=== PATIENT | female | born 1955 | race Caucasian/White ===

== ENCOUNTER 2017-01-20 16:31 | Inpatient (IN) | payer OTHER, MEDICARE ==
--- NOTE | 2017-01-20 16:45 | PDOC ---
History of Present Illness - General Chief Complaint: Wound Infection Stated Complaint: PCP SENT/WOUND INFECTION Time Seen by Provider: 01/20/17 16:44 History Source: Patient Exam Limitations: No Limitations - History of Present Illness Initial Comments: 01/20/17 16:45 Patient is a 61 year old female with history of lymphedema, chronic venous insufficiency, HTN, Parkinson's disease, Bi Polar disorder, chronic back problems s/p laminectomy, B/L hip replacement, LAP band surgery and complicated post-surgical infections sent by PCP for inpatient management of an infection to the right lower extremity that has failed outpatient antibiotics. Patient states that she first cut herself 5 weeks ago on a metal gate/door. Initial improvement with silver sulfadiazine but later started to worsen. She experienced two more cuts that weren't healing well and was started on Keflex 5 days ago with no improvement. Denies fever, chills, SOB, chest pain, abdominal pain, nausea, vomiting, diarrhea. Last tetanus shot was many years ago. PCP: Dr. Hector Garcia Pain management: Dr. Enrique Luciano ([phone]) Past History - Past Medical History Allergies/Adverse Reactions: Allergies Allergy/AdvReac Type Severity Reaction Status Date / Time No Known Drug Allergies Allergy Verified 01/20/17 16:37 lactose AdvReac Verified 01/23/17 14:22 BEE STINGS Allergy Severe Hives Uncoded 01/20/17 16:37 Home Medications: Ambulatory Orders Bumetanide 1 mg PO BID 05/28/15 Bupropion HCl [Wellbutrin Xl -] 300 mg PO DAILY 05/28/15 Carvedilol [Coreg] 3.125 mg PO BID 05/28/15 Citalopram Hydrobromide [Celexa -] 40 mg PO HS 05/28/15 Clonazepam [Klonopin] 1 mg PO HS 05/28/15 Lamotrigine [Lamictal] 300 mg PO DAILY 05/28/15 Potassium Chloride [K-Tab] 10 meq PO BID 05/28/15 Spironolactone 25 mg PO DAILY 05/28/15 Pramipexole Di-HCl [Pramipexole Dihydrochloride] 0.75 mg PO BID 01/23/17 Amox-Tr/K Cl [Augmentin 875-125mg Tablet -] 1 tab PO BID@0800,1730 #14 tablet Lactobacillus Acidophilus [Bacid -] 1 tab PO BID #20 tab 01/29/17 Oxycodone Sr [Oxycontin] 10 mg PO TID tab.sr MDD 30mg 01/29/17 Anemia: No Asthma: No Cancer: No Cardiac Disorders: Yes (HX OF A LEAKY HEART VALVE REPORTED BY PT) CVA: No COPD: No CHF: No Dementia: No Diabetes: No GI Disorders: No Disorders: No HTN: Yes Hypercholesterolemia: No Liver Disease: No Psychiatric Problems: Yes (BIPOLAR) Seizures: No Thyroid Disease: No - Surgical History Abdominal Surgery: Yes (Lap Band 2010) Appendectomy: No Cardiac Surgery: No Cholecystectomy: No Lung Surgery: No Neurologic Surgery: No Orthopedic Surgery: Yes (RIGHT CTR) - Suicide/Smoking/Psychosocial Hx Anxiety: No Suicidal Ideation: No Smoking History: Current every day smoker Have you smoked in the past 12 months: Yes Number of Cigarettes Smoked Daily: 20 Information on smoking cessation initiated: Yes 'Breaking Loose' booklet given: 01/20/17 Hx Alcohol Use: No Drug/Substance Use Hx: No Substance Use Type: None Hx Substance Use Treatment: No Review of Systems - Review of Systems Able to Perform ROS?: Yes Comments:: Denies fever, chills, recent illness Denies sore throat, changes in vision, changes in hearing Denies cough, shortness of breath Denies chest pain, palpitations, lightheadedness, diaphoresis Denies abdominal pain, nausea, vomiting, diarrhea Denies dysuria, burning on urination Endorses B/L edema to LE, erythema and weeping wounds to RLE, diffuse (chronic) M/S pain primarily to LE joints Endorses venous stasis skin changes to B/L LE, Denies rashes, bruises Denies GOMEZ, dizziness, weakness All Other Systems Reviewed and Negative Is the patient limited Turkish proficient: No *Physical Exam - Vital Signs Last Vital Signs Temp Pulse Resp BP Pulse Ox 98.1 F 94 H 19 121/63 98 01/20/17 16:36 01/20/17 16:36 01/20/17 16:36 01/20/17 16:36 01/20/17 16:36 - Physical Exam Comments: GENERAL: AAOx3, obese, pleasant and generally well appearing, NAD HEAD: NCAT EYES: PERRLA, EOMI, sclera anicteric, conjunctiva clear ENT: hearing grossly normal, nares patent, no discharge, no congestion, MMM NECK: supple, normal ROM, no LAD, no JVD, no masses RESP: speaking in full sentences, lungs CTAB, symmetrical chest expansion, no respiratory distress HEART: RRR, normal S1-S2, no MRG, 2 sec cap refill, B/L 1-2+ LE pulses ABDOMEN: soft, NTND, no guarding, no rebound tenderness, palpation of epigastric mass (lap band). EXTREMITIES: Moving all extremities, B/L LE erythema and 3+ edema consistent with stasis dermatitis, LE exquisitely ttp, 3 white weeping wounds to RLE, surrounding area slightly more erythematous and warm to the touch consistent with cellulitis, clear serous discharge, no purulent discharge, neurovascular status intact. NEUROLOGICAL: CN II-XII grossly intact, normal speech, no focal sensorimotor deficits SKIN: other than noted is warm, dry, normal turgor, no rashes. ED Treatment Course - LABORATORY CBC & Chemistry Diagram: 01/28/17 07:30 01/28/17 07:30 Medical Decision Making - Medical Decision Making 01/20/17 16:45 61 yo female with chronic venous insufficiency and infection of the right LE not improving with Keflex. Admission requested by PCP for IV axb and wound management. Ddx includes but is not limited to cellulitis, lymphangitis, abx resistance, non -healing venous ulcers, tetanus, DVT superficial thrombophlebitis Plan: EKG CXR CBC, CMP INR Wound culture Consider xray right tib/fib IV Zosyn IV Lasix Tdap consider duplex Admission per Dr. Garcia Spoke with Dr. Enrique Luciano about restrictions on patients pain medication. He expressed no concerns about giving patient whatever medications she needs to control her pain, no restrictions, no limitations on treatment. Spoke with Dr. Garcia, PCP, who requested - Admission for IV antibiotics - Start on Zosyn - IV Lasix 40 mg - Bilateral doppler Patient care signed out to Dr. Pia Swann and the night team. Labs and imaging pending. *DC/Admit/Observation/Transfer Diagnosis at time of Disposition: Cellulitis, Edema extremities - Discharge Dispostion Disposition: VNS/HOME HEALTH CARE Condition at time of disposition: Guarded - Prescriptions
[2017-01-20] MEDS ORDERED: PIPERACILLIN/TAZOB 3.375 GM 3.375 GM in DEXTROSE 5%-WATER - 50 ML IVPB ONE (17:46)
[2017-01-20] MEDS ORDERED: FUROSEMIDE 40 MG/4 ML INJECTABLE VIAL IVPB ONE (17:46)
[2017-01-20] MEDS ORDERED: DIPHTH,PERTUSS(ACELL),TET VAC 0.5 ML VIAL IM ONE (18:10)
[2017-01-20] MEDS ORDERED: PIPERACILLIN/TAZOB 3.375 GM 50 ML IVPB ONE (18:17)
[2017-01-20] MEDS ORDERED: VANCOMYCIN 1 GRAM (PRE-DOCKED) 250 ML IVPB ONE (18:17)
[2017-01-20] MEDS ORDERED: FUROSEMIDE 40 MG/4 ML INJECTABLE VIAL ONE (18:17)
[2017-01-20 18:18] LABS: BASOPHIL 1.5 % (0-2.0); EOSINOPHIL 7.5 % (0-4.5); MCH 33.3 pg (25.7-33.7); MCHC 34.3 g/dl (32.0-36.0); MEAN CELL VOLUME 97.1 fl (80-96); MEAN PLT VOLUME 7.2 fl (7.5-11.1); NEUTROPHILS 54.3 % (42.8-82.8); PLATELET COUNT 228 K/MM3 (134-434); RDW 13.5 % (11.6-15.6); WHITE BLOOD COUNT 6.4 K/mm3 (4.0-10.0)
--- NOTE | 2017-01-20 18:19 | PDOC ---
Attending Attestation - Resident Resident Name: Iglesia Suarez - ED Attending Attestation I have performed the following: I have examined & evaluated the patient, The case was reviewed & discussed with the resident, I agree w/resident's findings & plan, Exceptions are as noted - HPI HPI: 01/20/17 18:15 61y/o F h/o lymphedema and chronic venous stasis p/w RLE cellulitis not improving on outpatient keflex. no f/c. sent by Dr. Garcia for admission. - Physicial Exam PE: 01/20/17 18:18 afebrile circumferential lower RLE cellulitis with healing antoine wounds, clear serous discharge but no purulence. nvi distally otherwise. - Medical Decision Making 01/20/17 18:18 61y/o F with RLE cellulitis not improving on keflex. no systemic complaints, localized circumferential lower leg cellulitis. labs, wound culture xray iv abx admit per Dr. Garcia Heart Score/ECG Review #1 ECG reviewed & interpreted by me at: 18:29 General ECG Interpretation: Sinus Rhythm, Normal Rate (81), Normal Intervals ( qtc 446), No acute ischemic changes
[2017-01-20 18:33] LABS: INR 0.99 (0.82-1.09); PROTHROMBIN TIME (PATIENT) 10.9 SEC (9.98-11.88)
[2017-01-20 18:47] LABS: ALK PHOS 85 U/L (45-117); ANION GAP 4 (8-16); BILIRUBIN,TOTAL 0.3 mg/dL (0.2-1.0); CO2 34 mmol/L (21-32); CREATININE 1.1 mg/dL (0.55-1.02); GLUCOSE,RANDOM 81 mg/dL (74-106); SGOT/AST 16 U/L (15-37); SGPT/ALT 21 U/L (12-78); TOT PROT 7.5 g/dl (6.4-8.2)
--- NOTE | 2017-01-20 18:47 | HP ---
Admitting History and Physical - Admission Chief Complaint: leg swelling, wound on leg History of Present Illness: 61 yo female presents to hospital with failed outpatient treatment for leg ulcer / cellulitis. Patient has chronic leg edema, started putting SIlvadene on leg wound about 2 weeks ago. Erythema and weeping edema then started, so started on Keflex (already taking Bumex and Spironolactone at home) with no improvement , so now here for IV treatment and admission to hospital. No fevers. Has chronic back pain, requiring prior surgery for her back. 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: Parkinson's Cardiovascular: Yes: Other (peripheral veous disease with chronic edema) Psych: Yes: Bipolar Musculoskeletal: Yes: Other (herniated intervertebral disks of the spine) - Past Surgical History Past Surgical History: Yes: Bariatric Surgery (gastric band), Joint Replacement (bilateral hips), Laminectomy Additional Past Surgical History: vertebroplasty - Smoking History Smoking history: Current every day smoker Have you smoked in the past 12 months: Yes Aproximately how many cigarettes per day: 20 - Alcohol/Substance Use Hx Alcohol Use: No History of Substance Use: reports: Marijuana - Social History Usual Living Arrangement: Yes: With Spouse Occupation: Disabled due to spinal stenosis Home Medications - Allergies Allergies/Adverse Reactions: Allergies Allergy/AdvReac Type Severity Reaction Status Date / Time No Known Drug Allergies Allergy Verified 01/20/17 16:37 BEE STINGS Allergy Severe Hives Uncoded 01/20/17 16:37 - Home Medications Home Medications: Ambulatory Orders Aspirin [ASA -] 81 mg PO DAILY 05/28/15 Bumetanide 1 mg PO BID 05/28/15 Bupropion HCl [Wellbutrin Xl -] 450 mg PO DAILY 05/28/15 Carvedilol [Coreg] 3.125 mg PO BID 05/28/15 Celecoxib [Celebrex -] 200 mg PO DAILY 05/28/15 Citalopram Hydrobromide [Celexa -] 40 mg PO HS 05/28/15 Clonazepam [Klonopin] 1 mg PO HS 05/28/15 Lamotrigine [Lamictal] 300 mg PO DAILY 05/28/15 Multivitamins [Tab-A-Vit -] 1 tab PO DAILY 05/28/15 Oxycodone HCl/Acetaminophen [Percocet 5/325 -] 1 tab PO Q6H PRN 05/28/15 Potassium Chloride [K-Tab] 10 meq PO BID 05/28/15 Pramipexole Di-HCl [Mirapex ER] 3.75 mg PO TID 05/28/15 Spironolactone 25 mg PO DAILY 05/28/15 Calcium Carbonate/Vitamin D3 [Calcium + Vitamin D Tablet] 1 each PO BID Family Disease History - Family Disease History Family Disease History: CA: Sister (breast), Other: Grandparent (lymphedema, depression), Father (back pain), Mother (alzheimers, back pain) Review of Systems - Review of Systems Constitutional: denies: Fever, Loss of Appetite, Malaise, Night Sweats Eyes: reports: No Symptoms HENT: denies: Difficult Swallowing, Epistaxis, Throat Pain Neck: denies: Decreased ROM, Stiffness, Tenderness Cardiovascular: denies: Chest Pain, Palpitations Respiratory: denies: Cough, SOB Gastrointestinal: denies: Abdominal Pain, Constipation, Diarrhea, Nausea, Vomiting Genitourinary: denies: Burning, Discharge, Dysuria Physical Examination Vital Signs: Vital Signs Temperature 98.1 F 01/20/17 16:36 Pulse Rate 94 H 01/20/17 16:36 Respiratory Rate 19 01/20/17 16:36 Blood Pressure 121/63 01/20/17 16:36 O2 Sat by Pulse Oximetry (%) 98 01/20/17 16:36 Constitutional: Yes: Well Nourished, No Distress, Calm Eyes: Yes: Conjunctiva Clear, EOM Intact, PERRL HENT: Yes: Atraumatic, Normocephalic Neck: Yes: Supple Cardiovascular: Yes: Regular Rate and Rhythm, S1, S2. No: Murmur Respiratory: Yes: Regular, CTA Bilaterally. No: Rales, Rhonchi, Wheezes Gastrointestinal: Yes: Normal Bowel Sounds, Soft. No: Distention, Tenderness Extremities: Yes: Erythema (, ulceration right anterior leg with clear discharge ) Edema: Yes Edema: LLE: 3+, RLE: 3+ Neurological: Yes: Alert, Babinski negative Labs: CBC, BMP 01/20/17 18:15 Problem List - Problems (1) Cellulitis Assessment/Plan: -start zosyn, ID consult Code(s): L03.90 - CELLULITIS, UNSPECIFIED (2) Wound cellulitis Assessment/Plan: -silvadene for local wound care Code(s): L03.90 - CELLULITIS, UNSPECIFIED (3) Edema extremities Assessment/Plan: start IV lasix, will hold PO diuretics Code(s): R60.0 - LOCALIZED EDEMA (4) Bipolar disorder without psychotic features Assessment/Plan: -cont lamictal, wellbutrin, klonopin Code(s): F31.9 - BIPOLAR DISORDER, UNSPECIFIED (5) Spinal stenosis Assessment/Plan: -cont pain med as needed Code(s): M48.00 - SPINAL STENOSIS, SITE UNSPECIFIED (6) Parkinson disease Assessment/Plan: -mirapex -consider PT when wound healed enough Code(s): G20 - PARKINSON'S DISEASE
[2017-01-20] MEDS ORDERED: oxyCODONE HCL 5 MG TABLET PO PRN (19:14)
[2017-01-20] MEDS ORDERED: ACETAMINOPHEN 325 MG TABLET (FP) PO PRN (19:14)
--- NOTE | 2017-01-20 19:14 | PDOC ---
*Physical Exam - Vital Signs Sent in by Dr. Garcia, h/o hip replacement, lap band, lymphedema, chronic venous insufficiency. Cut her leg weeks ago, was on Keflex without resolution of the symptoms, Dr. Garcia told her to come to the ED for admission and IV abx. Got Vanc /Zosyn. Serous fluid drainage difficult to tell if it is infectious. Dr. Garcia saw her already in the ED. Pt is admitted awaiting bed. Last Vital Signs Temp Pulse Resp BP Pulse Ox 98.1 F 94 H 19 121/63 98 01/20/17 16:36 01/20/17 16:36 01/20/17 16:36 01/20/17 16:36 01/20/17 16:36 ED Treatment Course - LABORATORY CBC & Chemistry Diagram: 01/28/17 07:30 01/28/17 07:30 - ADDITIONAL ORDERS Additional order review: Laboratory Results 01/20/17 01/20/17 18:15 18:15 INR 0.99 Sodium 140 Potassium 4.2 Chloride 102 Carbon Dioxide 34 H Anion Gap 4 L BUN 14 Creatinine 1.1 H Creat Clearance w eGFR 50.67 Random Glucose 81 Calcium 9.0 Total Bilirubin 0.3 AST 16 ALT 21 Alkaline Phosphatase 85 Total Protein 7.5 Albumin 4.0 01/20/17 18:15 RBC 4.13 MCV 97.1 H MCHC 34.3 RDW 13.5 MPV 7.2 L Neutrophils % 54.3 Lymphocytes % 27.7 Monocytes % 9.0 Eosinophils % 7.5 H Basophils % 1.5 - Medications Given in the ED: ED Medications Discontinued Medications Generic Name Dose Route Start Last Admin Trade Name Freq PRN Reason Stop Dose Admin Diphtheria/Tetanus/Acell Pertussis 0.5 ml 01/20/17 18:10 01/20/17 18:28 Adacel Adolescent/Adult - IM 01/20/17 18:11 0.5 ml .ONCE ONE Administration Furosemide 40 mg 01/20/17 17:46 01/20/17 18:28 Lasix Injection - IVPB 01/20/17 17:47 40 mg ONCE ONE Administration Piperacillin Sod/Tazobactam 50 mls @ 100 mls/hr 01/20/17 17:46 01/20/17 18:27 Sod 3.375 gm/ Dextrose IVPB 01/20/17 18:15 100 mls/hr ONCE ONE Administration Protocol Medical Decision Making - Medical Decision Making Patient already admitted in the system, awaiting bed. No significant events for the duration of my care in the ED. Patient wheeled out of the ED and goes to inpatient bed without issue. *DC/Admit/Observation/Transfer Diagnosis at time of Disposition: Edema extremities Cellulitis Qualifiers: Site of cellulitis: extremity Site of cellulitis of extremity: lower extremity Laterality: right Qualified Code(s): L03.115 - Cellulitis of right lower limb - Discharge Dispostion Condition at time of disposition: Guarded Admit: Yes - Prescriptions
[2017-01-20 21:35] VITALS: BMI 41.4
[2017-01-20] MEDS ORDERED: VANCOMYCIN 1,000 MG in DEXTROSE 5%-WATER - 250 ML IVPB SCH (22:00)
[2017-01-20] MEDS: clonazePAM 0.5 MG TABLET PO SCH (22:05)
[2017-01-20] MEDS: HEPARIN NA (PORCINE) 5,000 UNITS/ML 1ML VIAL SQ SCH (22:06)
[2017-01-20] MEDS: POTASSIUM CHLORIDE TABS 10 MEQ TABLET.ER (FP) PO SCH (22:06)
[2017-01-20] MEDS: CARVEDILOL 3.125 MG TABLET (FP) PO SCH (22:06)
[2017-01-21] MEDS ORDERED: PIPERACILLIN/TAZOBACTAM 3.375 GM VIAL IVPB ONE ×3 (00:52→17:37)
[2017-01-21] MEDS ORDERED: DEXTROSE 5%-WATER 100 ML IVPB ONE ×2 (00:53→10:03)
[2017-01-21] MEDS: PIPERACILLIN/TAZOB 3.375 GM 3.375 GM in DEXTROSE 5%-WATER 100 ML IVPB SCH ×2 (01:12→10:24)
[2017-01-21] MEDS ORDERED: PIPERACILLIN/TAZOB 3.375 GM/50 ML PRE-DOCKED IVPB SCH (02:00)
[2017-01-21 08:24] LABS: BASOPHIL 2.1 % (0-2.0); MCH 32.6 pg (25.7-33.7); MCHC 33.7 g/dl (32.0-36.0); MEAN CELL VOLUME 96.7 fl (80-96); MEAN PLT VOLUME 7.5 fl (7.5-11.1); PLATELET COUNT 194 K/MM3 (134-434); RDW 13.5 % (11.6-15.6); WHITE BLOOD COUNT 5.7 K/mm3 (4.0-10.0)
[2017-01-21 08:35] LABS: ALBUMIN 3.3 g/dl (3.4-5.0); ALK PHOS 68 U/L (45-117); ANION GAP 8 (8-16); BILIRUBIN,TOTAL 0.5 mg/dL (0.2-1.0); CALCIUM 8.6 mg/dL (8.5-10.1); CO2 30 mmol/L (21-32); CREATININE 1.1 mg/dL (0.55-1.02); GLUCOSE,RANDOM 102 mg/dL (74-106); SGOT/AST 12 U/L (15-37); SGPT/ALT 18 U/L (12-78); TOT PROT 6.3 g/dl (6.4-8.2)
[2017-01-21] MEDS ORDERED: BUPROPION HCL 150 MG, BUPROPION HCL 300 MG PO SCH (10:00)
[2017-01-21] MEDS ORDERED: PT OWN MED DRAWER 7, Y5N ONE (10:02)
[2017-01-21] MEDS: CALCIUM 500MG/VIT-D 200 UNITS COMBO TABLET (FP) PO SCH ×2 (10:14→21:45)
[2017-01-21] MEDS: CARVEDILOL 3.125 MG TABLET (FP) PO SCH ×2 (10:14→21:45)
[2017-01-21] MEDS: ASPIRIN 81 MG CHEWABLE TABLETS PO SCH (10:14)
[2017-01-21] MEDS: CITALOPRAM HYDROBROMIDE 20 MG TABLET (FP) PO SCH (10:14)
[2017-01-21] MEDS: MULTIVITAMINS (DAILY MVI) TABLET (FP) PO SCH (10:14)
[2017-01-21] MEDS: POTASSIUM CHLORIDE TABS 10 MEQ TABLET.ER (FP) PO SCH ×2 (10:14→21:45)
[2017-01-21] MEDS: FUROSEMIDE 40 MG/4 ML INJECTABLE VIAL IVPUSH SCH (10:15)
[2017-01-21] MEDS: HEPARIN NA (PORCINE) 5,000 UNITS/ML 1ML VIAL SQ SCH ×2 (10:15→21:45)
--- NOTE | 2017-01-21 10:25 | EKG ---
Test Reason : Blood Pressure : / mmHG Vent. Rate : 081 BPM Atrial Rate : 081 BPM P-R Int : 152 ms QRS Dur : 076 ms QT Int : 384 ms P-R-T Axes : 053 020 032 degrees QTc Int : 446 ms NORMAL SINUS RHYTHM NORMAL ECG NO PREVIOUS ECGS AVAILABLE Confirmed by QUINTIN CARMICHAEL, JUAN DANIEL ([id number]) on 01/21/2017 10:25:25 AM Referred By: Confirmed By:JUAN DANIEL RIBEIRO MD
[2017-01-21] MEDS: LAMOTRIGINE PO SCH (11:15)
--- NOTE | 2017-01-21 11:32 | PN ---
Progress Note (short form) - Note Progress Note: ID Consult dictated Cellulitis R LE Chronic lymphedema/ stasis dermatitis S/P B/L THR Obtain BC ESR CRP Wound c/s pending Empiric zosyn/ vancomycin Elevation
[2017-01-21] MEDS: BACITRACIN 15 GM TUBE TOPICAL OINTMENT TP SCH (12:08)
[2017-01-21] MEDS: PIPERACILLIN/TAZOB 3.375 GM 3.375 GM in DEXTROSE 5%-WATER - 50 ML IVPB SCH ×2 (12:10→17:46)
--- NOTE | 2017-01-21 12:59 | PN ---
Progress Note, Physician Chief Complaint: Ms Edmonds says she is having pain in her legs and back. The back pain is chronic. No cp, sob, n/v. - Current Medication List Current Medications: Active Medications Acetaminophen (Tylenol -) 650 mg PO Q4H PRN PRN Reason: FEVER OR PAIN Aspirin (Asa -) 81 mg PO DAILY [facility] Last Admin: 01/21/17 10:14 Dose: 81 mg Bacitracin (Bacitracin -) 1 applic TP DAILY [facility] Last Admin: 01/21/17 12:08 Dose: Not Given Bupropion HCl (Wellbutrin Xl -) 300 mg PO DAILY [facility] Last Admin: 01/21/17 12:08 Dose: 300 mg Calcium Carbonate/Cholecalciferol (Os-Alan 500+D -) 1 tab PO BID [facility] Last Admin: 01/21/17 10:14 Dose: 1 tab Carvedilol (Coreg -) 3.125 mg PO BID [facility] Last Admin: 01/21/17 10:14 Dose: 3.125 mg Citalopram Hydrobromide (Celexa -) 40 mg PO DAILY [facility] Last Admin: 01/21/17 10:14 Dose: 40 mg Clonazepam (Klonopin -) 1 mg PO HS [facility] Last Admin: 01/20/17 22:05 Dose: 1 mg Furosemide (Lasix Injection -) 40 mg IVPUSH DAILY [facility] Last Admin: 01/21/17 10:15 Dose: 40 mg Heparin Sodium (Porcine) (Heparin -) 5,000 unit SQ BID [facility] Last Admin: 01/21/17 10:15 Dose: 5,000 unit Piperacillin Sod/Tazobactam (Sod 3.375 gm/ Dextrose) 50 mls @ 100 mls/hr IVPB Q8H-IV SHON PRN Reason: Protocol Last Admin: 01/21/17 12:10 Dose: Not Given Vancomycin HCl 1,000 mg/ (Dextrose) 250 mls @ 166.667 mls/hr IVPB Q12H SHON Lamotrigine 100 mg/ (Lamotrigine 200 mg) 300 mg PO DAILY [facility] Last Admin: 01/21/17 11:15 Dose: 300 mg Multivitamins/Minerals/Vitamin C (Tab-A-Vit -) 1 tab PO DAILY [facility] Last Admin: 01/21/17 10:14 Dose: 1 tab Non-Formulary Medication (Pramipexole Di-Hcl [Mirapex Er]) 3.75 mg PO TID [facility] Oxycodone HCl (Oxycontin -) 10 mg PO TID PRN PRN Reason: PAIN Potassium Chloride (K-Dur -) 10 meq PO BID [facility] Last Admin: 01/21/17 10:14 Dose: 10 meq - Objective Vital Signs: Vital Signs Temperature 36.1 C L 01/21/17 05:22 Pulse Rate 82 01/21/17 05:22 Respiratory Rate 20 01/21/17 05:22 Blood Pressure 120/58 01/21/17 05:22 O2 Sat by Pulse Oximetry (%) 94 L 01/20/17 21:42 Constitutional: Yes: Well Nourished, No Distress, Calm Cardiovascular: Yes: Regular Rate and Rhythm. No: Gallop, Murmur, Rub Respiratory: Yes: Regular, CTA Bilaterally. No: Rales, Rhonchi, Wheezes Gastrointestinal: Yes: Normal Bowel Sounds, Soft. No: Distention, Tenderness Extremities: Yes: Erythema Edema: Yes Edema: LLE: Trace, RLE: Trace Labs: CBC, BMP 01/21/17 07:05 01/21/17 07:05 INR, PTT INR 0.99 (0.82-1.09) 01/20/17 18:15 Problem List - Problems (1) Cellulitis Assessment/Plan: -patient with bilateral cellulitis, but with wound on RLE -admitted to hospital after failed outpatient therapy -appreciate ID assistance -continue vancomycin Code(s): L03.90 - CELLULITIS, UNSPECIFIED Qualifiers: Site of cellulitis: extremity Site of cellulitis of extremity: lower extremity Laterality: right Qualified Code(s): L03.115 - Cellulitis of right lower limb (2) Lymphedema Assessment/Plan: -continue diuresis with lasix -monitor I/Os Code(s): I89.0 - LYMPHEDEMA, NOT ELSEWHERE CLASSIFIED (3) Spinal stenosis Assessment/Plan: -continue oxycontin 10mg tid -patient requests it be prn Code(s): M48.00 - SPINAL STENOSIS, SITE UNSPECIFIED (4) Bipolar disorder without psychotic features Assessment/Plan: -continue home regimen Code(s): F31.9 - BIPOLAR DISORDER, UNSPECIFIED
[2017-01-21] MEDS: VANCOMYCIN 1,000 MG in DEXTROSE 5%-WATER - 250 ML IVPB SCH (13:09)
[2017-01-21] MEDS ORDERED: oxyCODONE HCL 10 MG SUSTAINED ACTING TABLET PO SCH (14:00)
[2017-01-21] MEDS ORDERED: DEXTROSE 5%-WATER - 50 ML IVPB ONE (17:37)
--- NOTE | 2017-01-21 20:09 | CONS ---
DATE OF CONSULTATION: 01/20/2017 The patient is a 61-year-old female with a history of chronic lower extremity lymphedema, chronic venous stasis dermatitis, lower extremities bilaterally, evaluated for cellulitis of the right lower extremity. She reports that approximately 2 weeks ago she had sustained a laceration to the pretibial area of the right lower extremity. She states that she walked into a metal object, resulting in a laceration. It subsequently became infected. She had applied topical Silvadene and later was prescribed Keflex. Despite taking Keflex, she had worsening erythema, warmth, and swelling of the right lower extremity. She was advised to present to the emergency room for admission for IV antibiotic therapy. At the present time, she is awake and alert. She complains of right lower extremity discomfort. She reports significant serous weeping from the right lower extremity. She denies any fever or chills. Of note, she is status post bilateral total hip replacements. 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 She required a revision of the right hip after a 6-week course of IV antibiotic therapy. She was unaware of any culture results from that time. She denies having a history of MRSA in the past. Past medical history positive for chronic lymphedema, lower extremities bilaterally; chronic venous stasis dermatitis, lower extremities bilaterally; bipolar disorder; osteoarthritis. PAST SURGICAL HISTORY: Status post bilateral total hip replacements, history of gastric band. No known allergies. Medications include aspirin, Wellbutrin, Coreg, Celexa, Celebrex, Klonopin, Lamictal, spironolactone. SOCIAL HISTORY: Positive for tobacco use. Lives at home with her . No recent hospitalizations. SYSTEMS REVIEW: Neurologic: No loss of consciousness, seizure activity, or focal weakness. Cardiac: Negative chest pain or palpitations. Respiratory: Negative cough or sputum production. Gastrointestinal: Negative vomiting or diarrhea. Positive history of gastric band. Genitourinary: Negative for urinary tract infection. LABORATORY DATA: White blood cell count 5.7 with 8% eosinophils, hematocrit 36.3, platelets 194, BUN 14, creatinine 1.1. Chest x-ray showed atelectasis. PHYSICAL EXAMINATION: General: She is awake and alert. She is not acutely toxic appearing. Vital Signs: Temperature 97. Blood pressure 120/58. Pulse 82, regular. Respiration 20 per minute. Eyes: Sclerae anicteric. Heart Sounds: S1, S2. Lungs: Clear. Abdomen: Soft. No tenderness elicited. No mass, rebound or rigidity. Extremities: Bilateral lower extremity edema/lymphedema. There are superficial ulcerations present on the pretibial aspect of the right lower extremity, with serous drainage. There is confluent erythema and warmth involving the right lower extremity from below the knee to above the foot. No crepitus or fluctuance. No lymphangitic streaking. IMPRESSION: 1. Cellulitis, right lower extremity. 2. Status post laceration of the right pretibial area. 3. Chronic lymphedema/stasis dermatitis. 4. History of bilateral total hip replacement complicated by infected right hip prosthesis. Will obtain blood cultures, sedimentation rate, C-reactive protein, wound culture, empiric antibiotic coverage with vancomycin and Zosyn pending cultures, elevation, local wound care. Will follow. Thank you for the kind referral. JIMI ORTEGA M.D. JEAN [id number]
[2017-01-21] MEDS: clonazePAM 0.5 MG TABLET PO SCH (21:45)
[2017-01-22] MEDS: oxyCODONE HCL 10 MG SUSTAINED ACTING TABLET PO PRN ×3 (00:01→16:54)
[2017-01-22] MEDS: ACETAMINOPHEN 325 MG TABLET (FP) PO PRN ×3 (00:02→16:54)
[2017-01-22] MEDS: VANCOMYCIN 1,000 MG in DEXTROSE 5%-WATER - 250 ML IVPB SCH ×3 (00:40→23:14)
[2017-01-22] MEDS ORDERED: PIPERACILLIN/TAZOBACTAM 3.375 GM VIAL IVPB ONE ×3 (03:03→16:05)
[2017-01-22] MEDS ORDERED: DEXTROSE 5%-WATER - 50 ML IVPB ONE ×2 (03:03→08:56)
[2017-01-22] MEDS: PIPERACILLIN/TAZOB 3.375 GM 3.375 GM in DEXTROSE 5%-WATER - 50 ML IVPB SCH ×3 (03:05→16:59)
[2017-01-22 08:50] LABS: BASOPHIL 0.8 % (0-2.0); EOSINOPHIL 8.1 % (0-4.5); MCH 32.2 pg (25.7-33.7); MEAN CELL VOLUME 97.8 fl (80-96); MEAN PLT VOLUME 7.6 fl (7.5-11.1); NEUTROPHILS 45.2 % (42.8-82.8); PLATELET COUNT 207 K/MM3 (134-434); RDW 13.6 % (11.6-15.6); WHITE BLOOD COUNT 5.5 K/mm3 (4.0-10.0)
[2017-01-22] MEDS ORDERED: PT OWN MED DRAWER 7, Y5N ONE ×3 (08:55→23:10)
[2017-01-22] MEDS: CARVEDILOL 3.125 MG TABLET (FP) PO SCH ×2 (09:03→21:07)
[2017-01-22] MEDS: LAMOTRIGINE PO SCH (09:03)
[2017-01-22] MEDS: ASPIRIN 81 MG CHEWABLE TABLETS PO SCH (09:03)
[2017-01-22] MEDS: POTASSIUM CHLORIDE TABS 10 MEQ TABLET.ER (FP) PO SCH ×2 (09:04→21:08)
[2017-01-22] MEDS: HEPARIN NA (PORCINE) 5,000 UNITS/ML 1ML VIAL SQ SCH ×2 (09:04→21:08)
[2017-01-22] MEDS: CITALOPRAM HYDROBROMIDE 20 MG TABLET (FP) PO SCH (09:04)
[2017-01-22] MEDS: CALCIUM 500MG/VIT-D 200 UNITS COMBO TABLET (FP) PO SCH ×2 (09:04→21:08)
[2017-01-22] MEDS: FUROSEMIDE 40 MG/4 ML INJECTABLE VIAL IVPUSH SCH (09:04)
[2017-01-22] MEDS: MULTIVITAMINS (DAILY MVI) TABLET (FP) PO SCH (09:04)
[2017-01-22 09:25] LABS: ANION GAP 9 (8-16); CO2 29 mmol/L (21-32); GLUCOSE,RANDOM 88 mg/dL (74-106); MAGNESIUM 2.6 mg/dL (1.8-2.4); PHOSPHOROUS 4.8 mg/dL (2.5-4.9)
[2017-01-22 09:27] LABS: C-REACTIVE PROTEIN 0.6 MG/DL (0.00-0.3)
--- NOTE | 2017-01-22 10:58 | PN ---
Progress Note, Physician History of Present Illness: No c/o leg pain Afebrile Tolerating antibiotics Doppler no DVT - Current Medication List Current Medications: Active Medications Acetaminophen (Tylenol -) 650 mg PO Q4H PRN PRN Reason: FEVER OR PAIN Last Admin: 01/22/17 09:19 Dose: 650 mg Aspirin (Asa -) 81 mg PO DAILY [facility] Last Admin: 01/22/17 09:03 Dose: 81 mg Bacitracin (Bacitracin -) 1 applic TP DAILY [facility] Last Admin: 01/21/17 12:08 Dose: Not Given Bupropion HCl (Wellbutrin Xl -) 300 mg PO DAILY [facility] Last Admin: 01/22/17 09:03 Dose: 300 mg Calcium Carbonate/Cholecalciferol (Os-Alan 500+D -) 1 tab PO BID [facility] Last Admin: 01/22/17 09:04 Dose: 1 tab Carvedilol (Coreg -) 3.125 mg PO BID [facility] Last Admin: 01/22/17 09:03 Dose: 3.125 mg Citalopram Hydrobromide (Celexa -) 40 mg PO DAILY [facility] Last Admin: 01/22/17 09:04 Dose: 40 mg Clonazepam (Klonopin -) 1 mg PO HS [facility] Last Admin: 01/21/17 21:45 Dose: 1 mg Furosemide (Lasix Injection -) 40 mg IVPUSH DAILY [facility] Last Admin: 01/22/17 09:04 Dose: 40 mg Heparin Sodium (Porcine) (Heparin -) 5,000 unit SQ BID [facility] Last Admin: 01/22/17 09:04 Dose: 5,000 unit Piperacillin Sod/Tazobactam (Sod 3.375 gm/ Dextrose) 50 mls @ 100 mls/hr IVPB Q8H-IV [facility] PRN Reason: Protocol Last Admin: 01/22/17 09:04 Dose: 100 mls/hr Vancomycin HCl 1,000 mg/ (Dextrose) 250 mls @ 166.667 mls/hr IVPB Q12H [facility] Last Admin: 01/22/17 00:40 Dose: 166.667 mls/hr Lamotrigine 100 mg/ (Lamotrigine 200 mg) 300 mg PO DAILY [facility] Last Admin: 01/22/17 09:03 Dose: 300 mg Multivitamins/Minerals/Vitamin C (Tab-A-Vit -) 1 tab PO DAILY [facility] Last Admin: 01/22/17 09:04 Dose: 1 tab Non-Formulary Medication (Pramipexole Di-Hcl [Mirapex Er]) 3.75 mg PO TID [facility] Oxycodone HCl (Oxycontin -) 10 mg PO TID PRN PRN Reason: PAIN Last Admin: 01/22/17 09:18 Dose: 10 mg Potassium Chloride (K-Dur -) 10 meq PO BID [facility] Last Admin: 01/22/17 09:04 Dose: 10 meq - Objective Vital Signs: Vital Signs Temperature 98.4 F 01/22/17 08:00 Pulse Rate 78 01/22/17 08:00 Respiratory Rate 16 01/22/17 08:00 Blood Pressure 122/73 01/22/17 08:00 O2 Sat by Pulse Oximetry (%) 98 01/22/17 09:00 Constitutional: Yes: No Distress Eyes: Yes: Conjunctiva Clear Cardiovascular: Yes: Regular Rate and Rhythm, S1, S2 Respiratory: Yes: CTA Bilaterally Gastrointestinal: Yes: Normal Bowel Sounds, Soft, Abdomen, Obese. No: Tenderness Extremities: Yes: Other (+ bilateral LE erythema and warmth) Edema: Yes Edema: LLE: 2+, RLE: 2+ Labs: CBC, BMP 01/22/17 08:00 01/22/17 08:00 INR, PTT INR 0.99 (0.82-1.09) 01/20/17 18:15 Assessment/Plan Bilateral LE cellulitis Chronic LE lymphedema S/P B/L THR Continue vanco/ zosyn Elevation
[2017-01-22] MEDS: BACITRACIN 15 GM TUBE TOPICAL OINTMENT TP SCH (11:16)
--- NOTE | 2017-01-22 12:54 | PN ---
Progress Note, Physician Chief Complaint: Ms Edmonds complains of being tired. She says she is still having pain in her legs but they look better. No cp, sob, n/v. - Current Medication List Current Medications: Active Medications Acetaminophen (Tylenol -) 650 mg PO Q4H PRN PRN Reason: FEVER OR PAIN Last Admin: 01/22/17 09:19 Dose: 650 mg Aspirin (Asa -) 81 mg PO DAILY [facility] Last Admin: 01/22/17 09:03 Dose: 81 mg Bacitracin (Bacitracin -) 1 applic TP DAILY [facility] Last Admin: 01/22/17 11:16 Dose: 1 applic Bupropion HCl (Wellbutrin Xl -) 300 mg PO DAILY [facility] 234 [facility]S [facility] Last Admin: 01/22/17 09:03 Dose: 300 mg Calcium Carbonate/Cholecalciferol (Os-Alan 500+D -) 1 tab PO BID [facility] Last Admin: 01/22/17 09:04 Dose: 1 tab Carvedilol (Coreg -) 3.125 mg PO BID [facility] 234 B[facility]S AT [facility] Last Admin: 01/22/17 09:03 Dose: 3.125 mg Citalopram Hydrobromide (Celexa -) 40 mg PO DAILY [facility] Last Admin: 01/22/17 09:04 Dose: 40 mg Clonazepam (Klonopin -) 1 mg PO HS [facility] 234 BEDS AT [facility] Last Admin: 01/21/17 21:45 Dose: 1 mg Furosemide (Lasix Injection -) 40 mg IVPUSH DAILY [facility] 234 B[facility]S [facility] Last Admin: 01/22/17 09:04 Dose: 40 mg Heparin Sodium (Porcine) (Heparin -) 5,000 unit SQ BID [facility] Last Admin: 01/22/17 09:04 Dose: 5,000 unit Piperacillin Sod/Tazobactam (Sod 3.375 gm/ Dextrose) 50 mls @ 100 mls/hr IVPB Q8H-IV [facility] PRN Reason: Protocol Last Admin: 01/22/17 09:04 Dose: 100 mls/hr Vancomycin HCl 1,000 mg/ (Dextrose) 250 mls @ 166.667 mls/hr IVPB Q12H [facility] Last Admin: 01/22/17 11:11 Dose: 166.667 mls/hr Lamotrigine 100 mg/ (Lamotrigine 200 mg) 300 mg PO DAILY [facility] 234 B[facility]S [facility] Last Admin: 01/22/17 09:03 Dose: 300 mg Multivitamins/Minerals/Vitamin C (Tab-A-Vit -) 1 tab PO DAILY [facility] 234 B[facility]S AT [facility] Last Admin: 01/22/17 09:04 Dose: 1 tab Non-Formulary Medication (Pramipexole Di-Hcl [Mirapex Er]) 3.75 mg PO TID [facility] 234 BEDS AT [facility] Oxycodone HCl (Oxycontin -) 10 mg PO TID PRN PRN Reason: PAIN Last Admin: 01/22/17 09:18 Dose: 10 mg Potassium Chloride (K-Dur -) 10 meq PO BID [facility] 234 B[facility]S [facility] Last Admin: 01/22/17 09:04 Dose: 10 meq - Objective Vital Signs: Vital Signs Temperature 36.9 C 01/22/17 08:00 Pulse Rate 78 01/22/17 08:00 Respiratory Rate 16 01/22/17 08:00 Blood Pressure 122/73 01/22/17 08:00 O2 Sat by Pulse Oximetry (%) 98 01/22/17 09:00 Constitutional: Yes: No Distress, Calm, Obese Cardiovascular: Yes: Regular Rate and Rhythm. No: Gallop, Murmur, Rub Respiratory: Yes: Regular, CTA Bilaterally. No: Rales, Rhonchi, Wheezes Gastrointestinal: Yes: Normal Bowel Sounds, Soft. No: Distention, Tenderness Extremities: Yes: Erythema, Other (RLE edema) Edema: Yes Edema: LLE: 1+, RLE: 1+ Labs: CBC, BMP 01/22/17 08:00 01/22/17 08:00 INR, PTT INR 0.99 (0.82-1.09) 01/20/17 18:15 Problem List - Problems (1) Cellulitis Code(s): L03.90 - CELLULITIS, UNSPECIFIED Qualifiers: Site of cellulitis: extremity Site of cellulitis of extremity: lower extremity Laterality: right Qualified Code(s): L03.115 - Cellulitis of right lower limb (2) Lymphedema Code(s): I89.0 - LYMPHEDEMA, NOT ELSEWHERE CLASSIFIED (3) Spinal stenosis Code(s): M48.00 - SPINAL STENOSIS, SITE UNSPECIFIED (4) Bipolar disorder without psychotic features Code(s): F31.9 - BIPOLAR DISORDER, UNSPECIFIED Assessment/Plan (1) Cellulitis Assessment/Plan: -appreciate ID assistance -continue vancomycin and zosyn Code(s): L03.90 - CELLULITIS, UNSPECIFIED Qualifiers: Site of cellulitis: extremity Site of cellulitis of extremity: lower extremity Laterality: right Qualified Code(s): L03.115 - Cellulitis of right lower limb (2) Lymphedema Assessment/Plan: -continue diuresis with lasix -monitor I/O -duplex dopplers negative Code(s): I89.0 - LYMPHEDEMA, NOT ELSEWHERE CLASSIFIED (3) Spinal stenosis Assessment/Plan: -continue oxycontin 10mg tid -continue as prn per patient request Code(s): M48.00 - SPINAL STENOSIS, SITE UNSPECIFIED (4) Bipolar disorder without psychotic features Assessment/Plan: -continue home regimen -well controlled Code(s): F31.9 - BIPOLAR DISORDER, UNSPECIFIED
[2017-01-22] MEDS: clonazePAM 0.5 MG TABLET PO SCH (21:07)
[2017-01-23] MEDS ORDERED: DEXTROSE 5%-WATER - 50 ML IVPB ONE ×3 (01:22→17:04)
[2017-01-23] MEDS ORDERED: PIPERACILLIN/TAZOBACTAM 3.375 GM VIAL IVPB ONE ×3 (01:22→17:04)
[2017-01-23] MEDS: PIPERACILLIN/TAZOB 3.375 GM 3.375 GM in DEXTROSE 5%-WATER - 50 ML IVPB SCH ×3 (01:38→17:57)
[2017-01-23] MEDS: oxyCODONE HCL 10 MG SUSTAINED ACTING TABLET PO PRN ×3 (01:44→16:54)
[2017-01-23] MEDS: ACETAMINOPHEN 325 MG TABLET (FP) PO PRN ×4 (01:46→21:54)
[2017-01-23 07:58] LABS: BASOPHIL 1.5 % (0-2.0); EOSINOPHIL 6.7 % (0-4.5); MCH 32.7 pg (25.7-33.7); MCHC 33.4 g/dl (32.0-36.0); MEAN CELL VOLUME 97.7 fl (80-96); MEAN PLT VOLUME 7.5 fl (7.5-11.1); NEUTROPHILS 51.9 % (42.8-82.8); PLATELET COUNT 217 K/MM3 (134-434); RDW 13.5 % (11.6-15.6); WHITE BLOOD COUNT 5.9 K/mm3 (4.0-10.0)
[2017-01-23 08:31] LABS: ANION GAP 6 (8-16); CALCIUM 9.3 mg/dL (8.5-10.1); CO2 32 mmol/L (21-32); GLUCOSE,RANDOM 78 mg/dL (74-106); MAGNESIUM 2.5 mg/dL (1.8-2.4)
[2017-01-23 08:32] LABS: CREATININE 1.2 mg/dL (0.55-1.02); PHOSPHOROUS 4.5 mg/dL (2.5-4.9)
[2017-01-23] MEDS ORDERED: PT OWN MED DRAWER 7, Y5N ONE ×2 (09:25→11:28)
[2017-01-23] MEDS: CITALOPRAM HYDROBROMIDE 20 MG TABLET (FP) PO SCH (09:35)
[2017-01-23] MEDS: CARVEDILOL 3.125 MG TABLET (FP) PO SCH ×2 (09:36→21:50)
[2017-01-23] MEDS: MULTIVITAMINS (DAILY MVI) TABLET (FP) PO SCH (09:36)
[2017-01-23] MEDS: POTASSIUM CHLORIDE TABS 10 MEQ TABLET.ER (FP) PO SCH ×2 (09:36→21:48)
[2017-01-23] MEDS: CALCIUM 500MG/VIT-D 200 UNITS COMBO TABLET (FP) PO SCH ×2 (09:36→21:48)
[2017-01-23] MEDS: LAMOTRIGINE PO SCH (09:36)
[2017-01-23] MEDS: ASPIRIN 81 MG CHEWABLE TABLETS PO SCH (09:36)
[2017-01-23] MEDS: HEPARIN NA (PORCINE) 5,000 UNITS/ML 1ML VIAL SQ SCH ×3 (09:36→21:50)
[2017-01-23] MEDS: FUROSEMIDE 40 MG/4 ML INJECTABLE VIAL IVPUSH SCH (09:36)
[2017-01-23] MEDS: BACITRACIN 15 GM TUBE TOPICAL OINTMENT TP SCH (09:52)
--- NOTE | 2017-01-23 12:27 | PN ---
Progress Note, Physician Chief Complaint: Ms Edmonds says she has diarrhea today. Requesting immodium. Still with pain in her leg, but sounds that it may be a baseline pain. Says it looks better. No cp , sob, n/v. - Current Medication List Current Medications: Active Medications Acetaminophen (Tylenol -) 650 mg PO Q4H PRN PRN Reason: FEVER OR PAIN Last Admin: 01/23/17 09:58 Dose: 650 mg Aspirin (Asa -) 81 mg PO DAILY [facility] Last Admin: 01/23/17 09:36 Dose: 81 mg Bacitracin (Bacitracin -) 1 applic TP DAILY [facility] Last Admin: 01/23/17 09:52 Dose: 1 applic Bupropion HCl (Wellbutrin Xl -) 300 mg PO DAILY [facility] Last Admin: 01/23/17 09:36 Dose: 300 mg Calcium Carbonate/Cholecalciferol (Os-Alan 500+D -) 1 tab PO BID [facility] Last Admin: 01/23/17 09:36 Dose: 1 tab Carvedilol (Coreg -) 3.125 mg PO BID [facility] Last Admin: 01/23/17 09:36 Dose: 3.125 mg Citalopram Hydrobromide (Celexa -) 40 mg PO DAILY [facility] Last Admin: 01/23/17 09:35 Dose: 40 mg Clonazepam (Klonopin -) 1 mg PO HS [facility] Last Admin: 01/22/17 21:07 Dose: 1 mg Furosemide (Lasix Injection -) 40 mg IVPUSH DAILY [facility] Last Admin: 01/23/17 09:36 Dose: 40 mg Heparin Sodium (Porcine) (Heparin -) 5,000 unit SQ BID [facility] Last Admin: 01/23/17 09:36 Dose: 5,000 unit Piperacillin Sod/Tazobactam (Sod 3.375 gm/ Dextrose) 50 mls @ 100 mls/hr IVPB Q8H-IV [facility] PRN Reason: Protocol Last Admin: 01/23/17 09:35 Dose: 100 mls/hr Vancomycin HCl 1,000 mg/ (Dextrose) 250 mls @ 166.667 mls/hr IVPB Q12H [facility] Last Admin: 01/22/17 23:14 Dose: 166.667 mls/hr Lactobacillus Acidophilus (Bacid -) 1 tab PO DAILY [facility] Lamotrigine 100 mg/ (Lamotrigine 200 mg) 300 mg PO DAILY [facility] Last Admin: 01/23/17 09:36 Dose: 300 mg Multivitamins/Minerals/Vitamin C (Tab-A-Vit -) 1 tab PO DAILY [facility] Last Admin: 01/23/17 09:36 Dose: 1 tab Patient's Own Medication (Non- Formulary) ( Pramipexole 0.75 Mg) 0.75 mg PO TID [facility] Oxycodone HCl (Oxycontin -) 10 mg PO TID PRN PRN Reason: PAIN Last Admin: 01/23/17 09:59 Dose: 10 mg Potassium Chloride (K-Dur -) 10 meq PO BID [facility] Last Admin: 01/23/17 09:36 Dose: 10 meq - Objective Vital Signs: Vital Signs Temperature 36.6 C 01/23/17 07:48 Pulse Rate 82 01/23/17 07:48 Respiratory Rate 18 01/23/17 07:48 Blood Pressure 139/83 01/23/17 07:48 O2 Sat by Pulse Oximetry (%) 100 01/23/17 09:00 Constitutional: Yes: No Distress, Calm, Obese Cardiovascular: Yes: Regular Rate and Rhythm. No: Gallop, Murmur, Rub Respiratory: Yes: Regular, CTA Bilaterally. No: Rales, Rhonchi, Wheezes Gastrointestinal: Yes: Normal Bowel Sounds, Soft. No: Distention, Tenderness Extremities: Yes: Erythema, Other (RLE wrapped) Edema: Yes Edema: LLE: 2+, RLE: 2+ Labs: CBC, BMP 01/23/17 07:30 01/23/17 07:30 INR, PTT INR 0.99 (0.82-1.09) 01/20/17 18:15 Problem List - Problems (1) Cellulitis Code(s): L03.90 - CELLULITIS, UNSPECIFIED Qualifiers: Site of cellulitis: extremity Site of cellulitis of extremity: lower extremity Laterality: right Qualified Code(s): L03.115 - Cellulitis of right lower limb (2) Lymphedema Code(s): I89.0 - LYMPHEDEMA, NOT ELSEWHERE CLASSIFIED (3) Spinal stenosis Code(s): M48.00 - SPINAL STENOSIS, SITE UNSPECIFIED (4) Bipolar disorder without psychotic features Code(s): F31.9 - BIPOLAR DISORDER, UNSPECIFIED (5) Diarrhea Code(s): R19.7 - DIARRHEA, UNSPECIFIED Assessment/Plan (1) Cellulitis Assessment/Plan: -appreciate ID assistance -continue vancomycin and zosyn -improving Code(s): L03.90 - CELLULITIS, UNSPECIFIED Qualifiers: Site of cellulitis: extremity Site of cellulitis of extremity: lower extremity Laterality: right Qualified Code(s): L03.115 - Cellulitis of right lower limb (2) Lymphedema Assessment/Plan: -continue diuresis with lasix -monitor I/O -duplex dopplers negative Code(s): I89.0 - LYMPHEDEMA, NOT ELSEWHERE CLASSIFIED (3) Spinal stenosis Assessment/Plan: -continue oxycontin 10mg tid -continue as prn per patient request Code(s): M48.00 - SPINAL STENOSIS, SITE UNSPECIFIED (4) Bipolar disorder without psychotic features Assessment/Plan: -continue home regimen -well controlled Code(s): F31.9 - BIPOLAR DISORDER, UNSPECIFIED (5) Diarrhea -will check c diff since on broad spectrum antibiotics -if negative, can use low dose immodium for control -patient says also on citracal, ? if has problem with overflow diarrhea -follow up c diff toxin and antibodies
[2017-01-23] MEDS: VANCOMYCIN 1,000 MG in DEXTROSE 5%-WATER - 250 ML IVPB SCH (12:30)
[2017-01-23] MEDS: LACTOBACILLUS ACIDOPHILUS 1 EACH TAB (FP) PO SCH (12:48)
[2017-01-23] MEDS ORDERED: FLU VACCINE QUAD 60 MCG/0.5 ML (MDV 17-18) IM ONE (14:00)
[2017-01-23] MEDS: PRAMIPEXOLE 0.75 MG PO SCH ×2 (14:23→21:48)
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
[2017-01-23] MEDS: clonazePAM 0.5 MG TABLET PO SCH (21:48)
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
[2017-01-24] MEDS ORDERED: PIPERACILLIN/TAZOBACTAM 3.375 GM VIAL IVPB ONE ×3 (01:50→16:28)
[2017-01-24] MEDS ORDERED: DEXTROSE 5%-WATER - 50 ML IVPB ONE ×3 (01:51→16:29)
[2017-01-24] MEDS: PIPERACILLIN/TAZOB 3.375 GM 3.375 GM in DEXTROSE 5%-WATER - 50 ML IVPB SCH ×3 (01:56→17:16)
[2017-01-24] MEDS: ACETAMINOPHEN 325 MG TABLET (FP) PO PRN ×2 (02:53→11:02)
[2017-01-24] MEDS: oxyCODONE HCL 10 MG SUSTAINED ACTING TABLET PO PRN ×3 (02:54→21:54)
[2017-01-24] MEDS: PRAMIPEXOLE 0.75 MG PO SCH ×4 (06:30→21:57)
--- NOTE | 2017-01-24 08:02 | PN ---
Physical Exam: SUBJECTIVE: Patient seen and examined Patient is c/o having diarrhea, but she also uses citrucel from outside and has not used it in the hospital yet. OBJECTIVE: Vital Signs Temperature 97.8 F 01/24/17 05:54 Pulse Rate 82 01/24/17 05:54 Respiratory Rate 18 01/24/17 05:54 Blood Pressure 116/62 01/24/17 05:54 O2 Sat by Pulse Oximetry (%) 100 01/23/17 21:00 GENERAL: The patient is awake, alert, and fully oriented, in no acute distress. very nice female. HEAD: Normal with no signs of trauma. EYES: PERRL, extraocular movements intact, sclera anicteric, conjunctiva clear. ENT: Ears normal, oropharynx clear without exudates, moist mucous membranes. NECK: Trachea midline, full range of motion, supple. LUNGS: Breath sounds equal, clear to auscultation bilaterally, no wheezes, no crackles, no accessory muscle use. HEART: Regular rate and rhythm, S1, S2 without murmur, rub or gallop. ABDOMEN: Soft, nontender, nondistended, normoactive bowel sounds, no guarding, no rebound. EXTREMITIES: 2+ pulses, warm, well-perfused, swelling of lower extremities R>L with RLE cellulitis with open wounds on the RLE with minimal discharge NEUROLOGICAL: Cranial nerves II through XII grossly intact. Normal speech. PSYCH: Normal mood, normal affect. SKIN: Warm, dry, normal turgor, no rashes or lesions noted CBCD WBC 5.6 K/mm3 (4.0-10.0) 01/24/17 07:33 RBC 3.88 M/mm3 (3.60-5.2) 01/24/17 07:33 Hgb 12.6 GM/dL (10.7-15.3) 01/24/17 07:33 Hct 37.9 % (32.4-45.2) 01/24/17 07:33 MCV 97.7 fl (80-96) H 01/24/17 07:33 MCHC 33.2 g/dl (32.0-36.0) 01/24/17 07:33 RDW 13.6 % (11.6-15.6) 01/24/17 07:33 Plt Count 201 K/MM3 (134-434) 01/24/17 07:33 MPV 7.2 fl (7.5-11.1) L 01/24/17 07:33 CMP Sodium 140 mmol/L (136-145) 01/24/17 07:33 Potassium 4.4 mmol/L (3.5-5.1) 01/24/17 07:33 Chloride 103 mmol/L (98-107) 01/24/17 07:33 Carbon Dioxide 33 mmol/L (21-32) H 01/24/17 07:33 Anion Gap 4 (8-16) L 01/24/17 07:33 BUN 17 mg/dL (7-18) 01/24/17 07:33 Creatinine 1.1 mg/dL (0.55-1.02) H 01/24/17 07:33 Creat Clearance w eGFR 50.67 (>60) 01/21/17 07:05 Random Glucose 79 mg/dL (74-106) 01/24/17 07:33 Calcium 9.2 mg/dL (8.5-10.1) 01/24/17 07:33 Total Bilirubin 0.5 mg/dL (0.2-1.0) D 01/21/17 07:05 AST 12 U/L (15-37) L D 01/21/17 07:05 ALT 18 U/L (12-78) 01/21/17 07:05 Alkaline Phosphatase 68 U/L (45-117) 01/21/17 07:05 Total Protein 6.3 g/dl (6.4-8.2) L 01/21/17 07:05 Albumin 3.3 g/dl (3.4-5.0) L 01/21/17 07:05 Laboratory Results - last 24 hr 01/23/17 01/23/17 07:30 11:00 Sodium 139 Potassium 4.0 Chloride 101 Carbon Dioxide 32 Anion Gap 6 L BUN 16 Creatinine 1.2 H Random Glucose 78 Calcium 9.3 Phosphorus 4.5 Magnesium 2.5 H Vancomycin Pre-Dose 17.667 H* Active Medications Generic Name Dose Route Start Last Admin Trade Name Freq PRN Reason Stop Dose Admin Acetaminophen 650 mg 01/21/17 12:26 01/24/17 02:53 Tylenol - PO 650 mg Q4H PRN Administration FEVER OR PAIN Aspirin 81 mg 01/21/17 10:00 01/23/17 09:36 Asa - PO 81 mg DAILY [facility] Administration Bacitracin 1 applic 01/21/17 11:30 01/23/17 09:52 Bacitracin - TP 1 applic DAILY [facility] Administration Bupropion HCl 300 mg 01/21/17 11:45 01/23/17 09:36 Wellbutrin Xl - PO 300 mg DAILY [facility] Administration Calcium Carbonate/Cholecalciferol 1 tab 01/21/17 10:00 01/23/17 21:48 Os-Alan 500+D - PO 1 tab BID [facility] Administration Carvedilol 3.125 mg 01/20/17 22:00 01/23/17 21:50 Coreg - PO 3.125 mg BID [facility] Administration Citalopram Hydrobromide 40 mg 01/21/17 10:00 01/23/17 09:35 Celexa - PO 40 mg DAILY [facility] Administration Clonazepam 1 mg 01/20/17 22:00 01/23/17 21:48 Klonopin - PO 1 mg HS [facility] Administration Furosemide 40 mg 01/21/17 10:00 01/23/17 09:36 Lasix Injection - IVPUSH 40 mg DAILY [facility] Administration Heparin Sodium (Porcine) 5,000 unit 01/20/17 22:00 01/23/17 21:50 Heparin - SQ Not Given BID [facility] Piperacillin Sod/Tazobactam 50 mls @ 100 mls/hr 01/21/17 11:30 01/24/17 01:56 Sod 3.375 gm/ Dextrose IVPB 100 mls/hr Q8H-IV [facility] Administration Protocol Vancomycin HCl 250 mls @ 200 mls/hr 01/24/17 10:00 Vancomycin (Pre-Docked) IVPB Q24H [facility] Lactobacillus Acidophilus 1 tab 01/23/17 12:00 01/23/17 12:48 Bacid - PO 1 tab DAILY [facility] Administration Lamotrigine 100 mg/ 300 mg 01/21/17 10:00 01/23/17 09:36 Lamotrigine 200 mg PO 300 mg DAILY [facility] Administration Multivitamins/Minerals/Vitamin C 1 tab 01/21/17 10:00 01/23/17 09:36 Tab-A-Vit - PO 1 tab DAILY [facility] Administration Patient's Own 0.75 mg 01/23/17 14:00 01/24/17 06:30 Medication (Non- PO Not Given Formulary) ( TID [facility] Pramipexole 0.75 Mg) Oxycodone HCl 10 mg 01/21/17 12:52 01/24/17 02:54 Oxycontin - PO 10 mg TID PRN Administration PAIN Potassium Chloride 10 meq 01/20/17 22:00 01/23/17 21:48 K-Dur - PO 10 meq BID [facility] Administration Home Medications Medication Instructions Recorded Bumetanide 1 mg PO BID 05/28/15 Bupropion HCl [Wellbutrin Xl -] 300 mg PO DAILY 05/28/15 Carvedilol [Coreg] 3.125 mg PO BID 05/28/15 Citalopram Hydrobromide [Celexa -] 40 mg PO HS 05/28/15 Clonazepam [Klonopin] 1 mg PO HS 05/28/15 Lamotrigine [Lamictal] 300 mg PO DAILY 05/28/15 Potassium Chloride [K-Tab] 10 meq PO BID 05/28/15 Spironolactone 25 mg PO DAILY 05/28/15 Pramipexole Di-HCl [Pramipexole 0.75 mg PO BID 01/23/17 Dihydrochloride] Microbiology 01/20/17 17:52 Leg - Right Lower Gram Stain - Final 01/20/17 17:52 Leg - Right Lower Wound Culture - Final Pseudo Fluorescens/Putida Group D Strep Or Entero Coccus Staphylococcus Coagulase Neg 01/21/17 12:30 Blood - Peripheral Venous Blood Culture - Preliminary NO GROWTH OBTAINED AFTER 48 HOURS, INCUBATION TO CONTINUE FOR 3 DAYS. 01/21/17 12:25 Blood - Peripheral Venous Blood Culture - Preliminary NO GROWTH OBTAINED AFTER 48 HOURS, INCUBATION TO CONTINUE FOR 3 DAYS. ASSESSMENT/PLAN: Patient is a 61 yo female presents to hospital with failed outpatient treatment for leg ulcer/ cellulitis. Patient has chronic leg lympedema was started on SIlvadene on leg wound about 2 weeks ago prior to the admission. # Acute Cellulitis of RLE with open wounds with minimal discharge. On IV vancomycin and zosyn continue, Vanco.level is adjusted by ID. Apply silvadene cream to RLE with beni bandages on Both lower extremities. # Acute over chronic Lymphedema continue diuresis with lasix; duplex dopplers negative #Hx of Spinal stenosis continue oxycontin 10mg tid # Bipolar disorder without psychotic features continue home regimen, well controlled # Acute Diarrhea as per patient has a hx fecal incontinence and uses citracel once cdiff is negative the w/u then can restart her back to her regimen. Also increased the dose of Bacid # Macrocytic mild anemia, will check b12 and folic acid # Hx of Osteoporosis, Vit D level as an outpatient. DVT Px: Heparin sq tid Visit type - Emergency Visit Emergency Visit: Yes ED Registration Date: 01/20/17 Care time: The patient presented to the Emergency Department on the above date and was hospitalized for further evaluation of their emergent condition. - New Patient This patient is new to me today: Yes Date on this admission: 01/24/17 - Critical Care Critical Care patient: No
[2017-01-24 08:34] LABS: EOSINOPHIL 8.5 % (0-4.5); MCH 32.4 pg (25.7-33.7); MCHC 33.2 g/dl (32.0-36.0); MEAN CELL VOLUME 97.7 fl (80-96); MEAN PLT VOLUME 7.2 fl (7.5-11.1); PLATELET COUNT 201 K/MM3 (134-434); RDW 13.6 % (11.6-15.6); WHITE BLOOD COUNT 5.6 K/mm3 (4.0-10.0)
[2017-01-24 09:02] LABS: ANION GAP 4 (8-16); CALCIUM 9.2 mg/dL (8.5-10.1); CO2 33 mmol/L (21-32); CREATININE 1.1 mg/dL (0.55-1.02); GLUCOSE,RANDOM 79 mg/dL (74-106); MAGNESIUM 2.6 mg/dL (1.8-2.4); PHOSPHOROUS 4.9 mg/dL (2.5-4.9)
[2017-01-24] MEDS ORDERED: PT OWN MED DRAWER 7, Y5N ONE ×3 (09:19→15:11)
[2017-01-24] MEDS: FUROSEMIDE 40 MG/4 ML INJECTABLE VIAL IVPUSH SCH (09:25)
[2017-01-24] MEDS: HEPARIN NA (PORCINE) 5,000 UNITS/ML 1ML VIAL SQ SCH ×3 (09:29→22:01)
[2017-01-24] MEDS: CITALOPRAM HYDROBROMIDE 20 MG TABLET (FP) PO SCH (09:29)
[2017-01-24] MEDS: CARVEDILOL 3.125 MG TABLET (FP) PO SCH ×2 (09:29→21:54)
[2017-01-24] MEDS: LACTOBACILLUS ACIDOPHILUS 1 EACH TAB (FP) PO SCH ×2 (09:30→21:54)
[2017-01-24] MEDS: POTASSIUM CHLORIDE TABS 10 MEQ TABLET.ER (FP) PO SCH ×2 (09:30→21:54)
[2017-01-24] MEDS: MULTIVITAMINS (DAILY MVI) TABLET (FP) PO SCH (09:30)
[2017-01-24] MEDS: ASPIRIN 81 MG CHEWABLE TABLETS PO SCH (09:30)
[2017-01-24] MEDS: CALCIUM 500MG/VIT-D 200 UNITS COMBO TABLET (FP) PO SCH ×2 (09:30→21:55)
[2017-01-24] MEDS: LAMOTRIGINE PO SCH (09:30)
[2017-01-24] MEDS: BACITRACIN 15 GM TUBE TOPICAL OINTMENT TP SCH (09:32)
--- NOTE | 2017-01-24 10:09 | PN ---
Progress Note (short form) - Note Progress Note: continues to have diarrhea- has a history of fecal incontinence- usually takes citrucel but has been off it since admission Vital Signs Period Temp Pulse Resp BP Sys/Moraes Pulse Ox Last 24 Hr 97.6 F-98.1 F 78-86 18-18 110-137/55-68 100 cor-rrr lungs clear abd soft, nt ext still with erythema and edema RLE, small open lesion with serous drainage CBC, BMP 01/24/17 07:33 01/24/17 07:33 Microbiology 01/20/17 17:52 Leg - Right Lower Gram Stain - Final 01/20/17 17:52 Leg - Right Lower Wound Culture - Final Pseudo Fluorescens/Putida Group D Strep Or Entero Coccus Staphylococcus Coagulase Neg 01/21/17 12:30 Blood - Peripheral Venous Blood Culture - Preliminary NO GROWTH OBTAINED AFTER 48 HOURS, INCUBATION TO CONTINUE FOR 3 DAYS. 01/21/17 12:25 Blood - Peripheral Venous Blood Culture - Preliminary NO GROWTH OBTAINED AFTER 48 HOURS, INCUBATION TO CONTINUE FOR 3 DAYS. a/p cellulitis of the RLE continue vancomycin and zosyn f/u stool cdiff (pending)
[2017-01-24] MEDS ORDERED: SILVER SULFADIAZINE 1% TOP CREAM 50 GM JAR TP SCH (10:30)
[2017-01-24] MEDS: VANCOMYCIN 1 GRAM (PRE-DOCKED) 250 ML IVPB SCH (11:06)
[2017-01-24] MEDS: SILVER SULFADIAZINE 1% TOP CREAM 50 GM JAR TP SCH ×2 (12:41→22:00)
[2017-01-24] MEDS: LOPERAMIDE HCL 2 MG CAPSULE PO ONE (15:27)
[2017-01-24] MEDS: CITRUCEL PO SCH (17:14)
[2017-01-24] MEDS: clonazePAM 0.5 MG TABLET PO SCH (21:55)
[2017-01-24] MEDS: ZINC OXIDE 20% TOPICAL OINTMENT 30 GM TUBE TP SCH (22:00)
[2017-01-25] MEDS ORDERED: PIPERACILLIN/TAZOBACTAM 3.375 GM VIAL IVPB ONE ×3 (01:08→15:54)
[2017-01-25] MEDS ORDERED: DEXTROSE 5%-WATER - 50 ML IVPB ONE ×3 (01:09→15:54)
[2017-01-25] MEDS: PIPERACILLIN/TAZOB 3.375 GM 3.375 GM in DEXTROSE 5%-WATER - 50 ML IVPB SCH ×3 (01:30→17:43)
[2017-01-25] MEDS: PRAMIPEXOLE 0.75 MG PO SCH ×3 (06:02→22:11)
[2017-01-25] MEDS: oxyCODONE HCL 10 MG SUSTAINED ACTING TABLET PO PRN (06:02)
[2017-01-25] MEDS: HEPARIN NA (PORCINE) 5,000 UNITS/ML 1ML VIAL SQ SCH ×3 (06:03→22:11)
[2017-01-25] MEDS ORDERED: PT OWN MED DRAWER 7, Y5N ONE (09:45)
[2017-01-25] MEDS: FUROSEMIDE 40 MG/4 ML INJECTABLE VIAL IVPUSH SCH (09:52)
[2017-01-25] MEDS: CALCIUM 500MG/VIT-D 200 UNITS COMBO TABLET (FP) PO SCH ×2 (09:54→22:10)
[2017-01-25] MEDS: MULTIVITAMINS (DAILY MVI) TABLET (FP) PO SCH (09:54)
[2017-01-25] MEDS: POTASSIUM CHLORIDE TABS 10 MEQ TABLET.ER (FP) PO SCH ×2 (09:55→22:09)
[2017-01-25] MEDS: ASPIRIN 81 MG CHEWABLE TABLETS PO SCH (09:55)
[2017-01-25] MEDS: CITALOPRAM HYDROBROMIDE 20 MG TABLET (FP) PO SCH (09:55)
[2017-01-25] MEDS: LACTOBACILLUS ACIDOPHILUS 1 EACH TAB (FP) PO SCH ×2 (09:55→22:09)
[2017-01-25] MEDS: LAMOTRIGINE PO SCH (09:55)
[2017-01-25] MEDS: CARVEDILOL 3.125 MG TABLET (FP) PO SCH ×2 (09:55→22:11)
[2017-01-25] MEDS: BACITRACIN 15 GM TUBE TOPICAL OINTMENT TP SCH (09:56)
[2017-01-25] MEDS: ZINC OXIDE 20% TOPICAL OINTMENT 30 GM TUBE TP SCH ×2 (10:00→22:38)
[2017-01-25] MEDS: SILVER SULFADIAZINE 1% TOP CREAM 50 GM JAR TP SCH ×2 (10:02→22:41)
[2017-01-25] MEDS: CITRUCEL PO SCH (10:02)
[2017-01-25] MEDS ORDERED: LOPERAMIDE HCL 2 MG CAPSULE PO ONE (12:08)
--- NOTE | 2017-01-25 13:02 | PN ---
Progress Note (short form) - Note Progress Note: continues to have diarrhea- has a history of fecal incontinence- usually takes citrucel but has been off it since admission Vital Signs Period Temp Pulse Resp BP Sys/Moraes Pulse Ox Last 24 Hr 97.5 F-97.7 F 82-83 18-82 110-122/60-81 100-100 cor-rrr lungs clear abd soft,nt ext bilateral edema with erythema (less), open ulcer RLE chips screen tender to touch CBC, BMP 01/24/17 07:33 01/24/17 07:33 Microbiology 01/21/17 12:30 Blood - Peripheral Venous Blood Culture - Preliminary NO GROWTH OBTAINED AFTER 96 HOURS, INCUBATION TO CONTINUE FOR 1 DAYS. 01/21/17 12:25 Blood - Peripheral Venous Blood Culture - Preliminary NO GROWTH OBTAINED AFTER 96 HOURS, INCUBATION TO CONTINUE FOR 1 DAYS. 01/23/17 22:05 Stool Clostridium difficile Antigen (LALITO) - Final 01/23/17 22:05 Stool Clostridium difficile Toxin Assay - Final 01/20/17 17:52 Leg - Right Lower Gram Stain - Final 01/20/17 17:52 Leg - Right Lower Wound Culture - Preliminary Pseudo Fluorescens/Putida Enterococcus Faecalis Staphylococcus Coagulase Neg cdiff negative a/p cellulitis of the RLE continue vancomycin and zosyn
[2017-01-25] MEDS: VANCOMYCIN 1 GRAM (PRE-DOCKED) 250 ML IVPB SCH (15:25)
--- NOTE | 2017-01-25 16:00 | PN ---
Progress Note (short form) - Note Progress Note: Patient is feeling better, but continues to have diarrhea ;ess than yesterday . Vital Signs Temperature 98.1 F 01/25/17 14:09 Pulse Rate 84 01/25/17 14:09 Respiratory Rate 18 01/25/17 14:09 Blood Pressure 118/65 01/25/17 14:09 O2 Sat by Pulse Oximetry (%) 100 01/25/17 08:53 GENERAL: The patient is awake, alert, and fully oriented, in no acute distress. very nice female. HEAD: Normal with no signs of trauma. EYES: PERRL, extraocular movements intact, sclera anicteric, conjunctiva clear. ENT: Ears normal, oropharynx clear without exudates, moist mucous membranes. NECK: Trachea midline, full range of motion, supple. LUNGS: Breath sounds equal, clear to auscultation bilaterally, no wheezes, no crackles, no accessory muscle use. HEART: Regular rate and rhythm, S1, S2 positive, JOHN 2/6 ABDOMEN: Soft, nontender, nondistended, normoactive bowel sounds, no guarding, no rebound. EXTREMITIES: 2+ pulses, warm, well-perfused, swelling of lower extremities R>L with RLE cellulitis with open wounds on the RLE with minimal discharge NEUROLOGICAL: Cranial nerves II through XII grossly intact. Normal speech. PSYCH: Normal mood, normal affect. SKIN: Warm, dry, normal turgor, no rashes or lesions noted CBCD WBC 5.6 K/mm3 (4.0-10.0) 01/24/17 07:33 RBC 3.88 M/mm3 (3.60-5.2) 01/24/17 07:33 Hgb 12.6 GM/dL (10.7-15.3) 01/24/17 07:33 Hct 37.9 % (32.4-45.2) 01/24/17 07:33 MCV 97.7 fl (80-96) H 01/24/17 07:33 MCHC 33.2 g/dl (32.0-36.0) 01/24/17 07:33 RDW 13.6 % (11.6-15.6) 01/24/17 07:33 Plt Count 201 K/MM3 (134-434) 01/24/17 07:33 MPV 7.2 fl (7.5-11.1) L 01/24/17 07:33 CMP Sodium 140 mmol/L (136-145) 01/24/17 07:33 Potassium 4.4 mmol/L (3.5-5.1) 01/24/17 07:33 Chloride 103 mmol/L (98-107) 01/24/17 07:33 Carbon Dioxide 33 mmol/L (21-32) H 01/24/17 07:33 Anion Gap 4 (8-16) L 01/24/17 07:33 BUN 17 mg/dL (7-18) 01/24/17 07:33 Creatinine 1.1 mg/dL (0.55-1.02) H 01/24/17 07:33 Creat Clearance w eGFR 50.67 (>60) 01/21/17 07:05 Random Glucose 79 mg/dL (74-106) 01/24/17 07:33 Calcium 9.2 mg/dL (8.5-10.1) 01/24/17 07:33 Total Bilirubin 0.5 mg/dL (0.2-1.0) D 01/21/17 07:05 AST 12 U/L (15-37) L D 01/21/17 07:05 ALT 18 U/L (12-78) 01/21/17 07:05 Alkaline Phosphatase 68 U/L (45-117) 01/21/17 07:05 Total Protein 6.3 g/dl (6.4-8.2) L 01/21/17 07:05 Albumin 3.3 g/dl (3.4-5.0) L 01/21/17 07:05 Current Medications Generic Name Dose Route Start Last Admin Trade Name Geovani PRN Reason Stop Dose Admin Acetaminophen 650 mg 01/21/17 12:26 01/24/17 11:02 Tylenol - PO 650 mg Q4H PRN Administration FEVER OR PAIN Aspirin 81 mg 01/21/17 10:00 01/25/17 09:55 Asa - PO 81 mg DAILY [facility] Administration Bacitracin 1 applic 01/21/17 11:30 01/25/17 09:56 Bacitracin - TP Not Given DAILY [facility] Bupropion HCl 300 mg 01/21/17 11:45 01/25/17 09:55 Wellbutrin Xl - PO 300 mg DAILY [facility] Administration Calcium Carbonate/Cholecalciferol 1 tab 01/21/17 10:00 01/25/17 09:54 Os-Alan 500+D - PO 1 tab BID [facility] Administration Carvedilol 3.125 mg 01/20/17 22:00 01/25/17 09:55 Coreg - PO 3.125 mg BID [facility] Administration Citalopram Hydrobromide 40 mg 01/21/17 10:00 01/25/17 09:55 Celexa - PO 40 mg DAILY [facility] Administration Clonazepam 1 mg 01/20/17 22:00 01/24/17 21:55 Klonopin - PO 1 mg HS [facility] Administration Furosemide 40 mg 01/21/17 10:00 01/25/17 09:52 Lasix Injection - IVPUSH 40 mg DAILY [facility] Administration Heparin Sodium (Porcine) 5,000 unit 01/24/17 14:00 01/25/17 13:58 Heparin - SQ 5,000 unit TID [facility] Administration Piperacillin Sod/Tazobactam 50 mls @ 100 mls/hr 01/21/17 11:30 01/25/17 09:57 Sod 3.375 gm/ Dextrose IVPB 100 mls/hr Q8H-IV [facility] Administration Protocol Vancomycin HCl 250 mls @ 200 mls/hr 01/24/17 10:00 01/25/17 15:25 Vancomycin (Pre-Docked) IVPB 200 mls/hr Q24H [facility] Administration Lactobacillus Acidophilus 1 tab 01/24/17 22:00 01/25/17 09:55 Bacid - PO 1 tab BID [facility] Administration Lamotrigine 100 mg/ 300 mg 01/21/17 10:00 01/25/17 09:55 Lamotrigine 200 mg PO 300 mg DAILY [facility] Administration Multi-Ingredient Ointment 1 applic 01/24/17 22:00 01/25/17 10:00 Zinc Oxide TP 1 applic BID [facility] Administration Multivitamins/Minerals/Vitamin C 1 tab 01/21/17 10:00 01/25/17 09:54 Tab-A-Vit - PO 1 tab DAILY [facility] Administration Patient's Own 0.75 mg 01/23/17 14:00 01/25/17 13:52 Medication (Non- PO Not Given Formulary) ( TID [facility] Pramipexole 0.75 Mg) Citrucel Caplets - 3 each 01/24/17 16:30 01/24/17 17:14 Patient Own Med PO 3 each Q2D@10 [facility] Administration Citrucel Caplets - 1 each 01/25/17 10:00 01/25/17 10:02 Patient Own Med PO Not Given Q2D@10 [facility] Potassium Chloride 10 meq 01/20/17 22:00 01/25/17 09:55 K-Dur - PO 10 meq BID [facility] Administration Silver Sulfadiazine 1 applic 01/24/17 10:30 01/25/17 10:02 Silvadene - TP 1 applic BID [facility] Administration Home Medications Medication Instructions Recorded Bumetanide 1 mg PO BID 05/28/15 Bupropion HCl [Wellbutrin Xl -] 300 mg PO DAILY 05/28/15 Carvedilol [Coreg] 3.125 mg PO BID 05/28/15 Citalopram Hydrobromide [Celexa -] 40 mg PO HS 05/28/15 Clonazepam [Klonopin] 1 mg PO HS 05/28/15 Lamotrigine [Lamictal] 300 mg PO DAILY 05/28/15 Potassium Chloride [K-Tab] 10 meq PO BID 05/28/15 Spironolactone 25 mg PO DAILY 05/28/15 Pramipexole Di-HCl [Pramipexole 0.75 mg PO BID 01/23/17 Dihydrochloride] 01/20/17 17:52 Leg - Right Lower Gram Stain - Final 01/20/17 17:52 Leg - Right Lower Wound Culture - Final Pseudo Fluorescens/Put[place] Group D Strep Or Entero Coccus Staphylococcus Coagulase Neg 01/21/17 12:30 Blood - Peripheral Venous Blood Culture - Preliminary NO GROWTH OBTAINED AFTER 48 HOURS, INCUBATION TO CONTINUE FOR 3 DAYS. 01/21/17 12:25 Blood - Peripheral Venous Blood Culture - Preliminary NO GROWTH OBTAINED AFTER 48 HOURS, INCUBATION TO CONTINUE FOR 3 DAYS. ASSESSMENT/PLAN: Patient is a 61 yo female presents to hospital with failed outpatient treatment for leg ulcer/ cellulitis. Patient has chronic leg lympedema was started on SIlvadene on leg wound about 2 weeks ago prior to the admission. # Acute Cellulitis of RLE with open wounds with minimal discharge. On IV vancomycin and zosyn continue, Vanco.level is adjusted by ID. Apply silvadene cream to RLE with beni bandages on Both lower extremities continue , improving the swelling/ # Acute diarrhea improving, Cdiff is neg. asking for Imodium prn patient has a hx fecal incontinence and uses citracel once cdiff is negative the w/u then can restart her back to her regimen. Also increased the dose of Bacid # Acute over chronic Lymphedema continue diuresis with lasix; duplex dopplers negative #Hx of Spinal stenosis continue oxycontin 10mg tid # Bipolar disorder without psychotic features continue home regimen, well controlled # Macrocytic mild anemia, will check [id number] . follow folic acid # Hx of Osteoporosis, Vit D level as an outpatient. DVT Px: Heparin sq tid Visit type - Emergency Visit Emergency Visit: Yes ED Registration Date: 01/20/17 Care time: The patient presented to the Emergency Department on the above date and was hospitalized for further evaluation of their emergent condition. - New Patient This patient is new to me today: No - Critical Care Critical Care patient: No
[2017-01-25] MEDS ORDERED: LOPERAMIDE HCL 2 MG CAPSULE PO PRN (17:24)
[2017-01-25] MEDS ORDERED: oxyCODONE HCL 5 MG TABLET PO PRN (17:29)
[2017-01-25] MEDS: clonazePAM 0.5 MG TABLET PO SCH (22:09)
[2017-01-25] MEDS: oxyCODONE HCL 10 MG SUSTAINED ACTING TABLET PO SCH (22:10)
[2017-01-26] MEDS ORDERED: PIPERACILLIN/TAZOBACTAM 3.375 GM VIAL IVPB ONE ×3 (00:27→18:01)
[2017-01-26] MEDS ORDERED: DEXTROSE 5%-WATER - 50 ML IVPB ONE ×3 (00:27→18:01)
[2017-01-26] MEDS: PIPERACILLIN/TAZOB 3.375 GM 3.375 GM in DEXTROSE 5%-WATER - 50 ML IVPB SCH ×3 (02:28→18:10)
[2017-01-26] MEDS: LOPERAMIDE HCL 2 MG CAPSULE PO ONE (04:13)
[2017-01-26] MEDS: PRAMIPEXOLE 0.75 MG PO SCH ×3 (05:49→21:38)
[2017-01-26] MEDS: HEPARIN NA (PORCINE) 5,000 UNITS/ML 1ML VIAL SQ SCH ×3 (05:49→21:41)
[2017-01-26] MEDS: BACITRACIN 15 GM TUBE TOPICAL OINTMENT TP SCH (10:21)
[2017-01-26] MEDS ORDERED: PT OWN MED DRAWER 7, Y5N ONE ×2 (10:43→17:52)
[2017-01-26] MEDS: CARVEDILOL 3.125 MG TABLET (FP) PO SCH ×2 (11:01→21:37)
[2017-01-26] MEDS: LAMOTRIGINE PO SCH (11:01)
[2017-01-26] MEDS: LACTOBACILLUS ACIDOPHILUS 1 EACH TAB (FP) PO SCH ×2 (11:01→21:37)
[2017-01-26] MEDS: MULTIVITAMINS (DAILY MVI) TABLET (FP) PO SCH (11:01)
[2017-01-26] MEDS: POTASSIUM CHLORIDE TABS 10 MEQ TABLET.ER (FP) PO SCH ×2 (11:01→21:37)
[2017-01-26] MEDS: CALCIUM 500MG/VIT-D 200 UNITS COMBO TABLET (FP) PO SCH ×2 (11:01→21:37)
[2017-01-26] MEDS: oxyCODONE HCL 10 MG SUSTAINED ACTING TABLET PO SCH ×2 (11:02→21:37)
[2017-01-26] MEDS: ASPIRIN 81 MG CHEWABLE TABLETS PO SCH (11:02)
[2017-01-26] MEDS: FUROSEMIDE 40 MG/4 ML INJECTABLE VIAL IVPUSH SCH (11:03)
[2017-01-26] MEDS: CITALOPRAM HYDROBROMIDE 20 MG TABLET (FP) PO SCH (11:03)
[2017-01-26] MEDS: CITRUCEL PO SCH (11:05)
[2017-01-26] MEDS: ZINC OXIDE 20% TOPICAL OINTMENT 30 GM TUBE TP SCH ×2 (12:00→21:41)
[2017-01-26] MEDS: VANCOMYCIN 1 GRAM (PRE-DOCKED) 250 ML IVPB SCH (13:55)
--- NOTE | 2017-01-26 15:00 | PN ---
Progress Note, Physician History of Present Illness: Awake, alert Reports less leg discomfort No c/o fever/ chills Less diarrhea - Current Medication List Current Medications: Active Medications Acetaminophen (Tylenol -) 650 mg PO Q4H PRN PRN Reason: FEVER OR PAIN Last Admin: 01/24/17 11:02 Dose: 650 mg Aspirin (Asa -) 81 mg PO DAILY [facility] Last Admin: 01/26/17 11:02 Dose: 81 mg Bacitracin (Bacitracin -) 1 applic TP DAILY [facility] Last Admin: 01/26/17 10:21 Dose: Not Given Bupropion HCl (Wellbutrin Xl -) 300 mg PO DAILY [facility] Last Admin: 01/26/17 11:02 Dose: 300 mg Calcium Carbonate/Cholecalciferol (Os-Alan 500+D -) 1 tab PO BID [facility] Last Admin: 01/26/17 11:01 Dose: 1 tab Carvedilol (Coreg -) 3.125 mg PO BID [facility] Last Admin: 01/26/17 11:01 Dose: 3.125 mg Citalopram Hydrobromide (Celexa -) 40 mg PO DAILY [facility] Last Admin: 01/26/17 11:03 Dose: 40 mg Clonazepam (Klonopin -) 1 mg PO HS [facility] Last Admin: 01/25/17 22:09 Dose: 1 mg Furosemide (Lasix Injection -) 40 mg IVPUSH DAILY [facility] Last Admin: 01/26/17 11:03 Dose: 40 mg Heparin Sodium (Porcine) (Heparin -) 5,000 unit SQ TID [facility] Last Admin: 01/26/17 13:55 Dose: Not Given Piperacillin Sod/Tazobactam (Sod 3.375 gm/ Dextrose) 50 mls @ 100 mls/hr IVPB Q8H-IV [facility] PRN Reason: Protocol Last Admin: 01/26/17 13:23 Dose: 100 mls/hr Vancomycin HCl (Vancomycin (Pre-Docked)) 250 mls @ 200 mls/hr IVPB Q24H [facility] Last Admin: 01/26/17 13:55 Dose: 200 mls/hr Lactobacillus Acidophilus (Bacid -) 1 tab PO BID [facility] Last Admin: 01/26/17 11:01 Dose: 1 tab Lamotrigine 100 mg/ (Lamotrigine 200 mg) 300 mg PO DAILY [facility] Last Admin: 01/26/17 11:01 Dose: 300 mg Multi-Ingredient Ointment (Zinc Oxide) 1 applic TP BID [facility] Last Admin: 01/25/17 22:38 Dose: 1 applic Multivitamins/Minerals/Vitamin C (Tab-A-Vit -) 1 tab PO DAILY [facility] Last Admin: 01/26/17 11:01 Dose: 1 tab Patient's Own Medication (Non- Formulary) ( Pramipexole 0.75 Mg) 0.75 mg PO TID [facility] Last Admin: 01/26/17 13:55 Dose: 0.75 mg Citrucel Caplets - (Patient Own Med) 3 each PO Q2D@10 [facility] Last Admin: 01/26/17 11:05 Dose: 3 each Citrucel Caplets - (Patient Own Med) 1 each PO Q2D@10 [facility] Last Admin: 01/25/17 10:02 Dose: Not Given Oxycodone HCl (Oxycontin -) 10 mg PO BID [facility] Last Admin: 01/26/17 11:02 Dose: 10 mg Potassium Chloride (K-Dur -) 10 meq PO BID [facility] Last Admin: 01/26/17 11:01 Dose: 10 meq Silver Sulfadiazine (Silvadene -) 1 applic TP BID [facility] Last Admin: 01/25/17 22:41 Dose: 1 applic - Objective Vital Signs: Vital Signs Temperature 98.1 F 01/26/17 14:34 Pulse Rate 78 01/26/17 14:34 Respiratory Rate 18 01/26/17 06:00 Blood Pressure 97/66 01/26/17 14:34 O2 Sat by Pulse Oximetry (%) 100 01/25/17 20:13 Constitutional: Yes: No Distress Eyes: Yes: Conjunctiva Clear Cardiovascular: Yes: Regular Rate and Rhythm, S1, S2 Respiratory: Yes: CTA Bilaterally Gastrointestinal: Yes: Normal Bowel Sounds, Soft. No: Tenderness Extremities: Yes: Other (decreased edema and erythema LE bilaterally) Labs: CBC, BMP 01/24/17 07:33 01/24/17 07:33 INR, PTT INR 0.99 (0.82-1.09) 01/20/17 18:15 Assessment/Plan Bilateral LE cellulitis + Wound c/s SCN, Enterococcus, Pseudomonas Chronic LE lymphedema S/P B/L THR Continue vanco/ zosyn x 24h Switch to po am Elevation
--- NOTE | 2017-01-26 16:50 | PN ---
Progress Note (short form) - Note Progress Note: Patient is comfortable feels better, diarrhea improved , a lot less now, no fever or chills. Temperature 98.1 F 01/26/17 14:34 Pulse Rate 78 01/26/17 14:34 Respiratory Rate 18 01/26/17 10:00 Blood Pressure 97/66 01/26/17 14:34 O2 Sat by Pulse Oximetry (%) 100 01/25/17 20:13 GENERAL: The patient is awake, alert, and fully oriented, in no acute distress. very nice female. HEAD: Normal with no signs of trauma. EYES: PERRL, extraocular movements intact, sclera anicteric, conjunctiva clear. ENT: Ears normal, oropharynx clear without exudates, moist mucous membranes. NECK: Trachea midline, full range of motion, supple. LUNGS: Breath sounds equal, clear to auscultation bilaterally, no wheezes, no crackles, no accessory muscle use. HEART: Regular rate and rhythm, S1, S2 positive, JOHN 2/6 ABDOMEN: Soft, nontender, nondistended, normoactive bowel sounds, no guarding, no rebound. EXTREMITIES: 2+ pulses, warm, well-perfused, swelling of lower extremities R>L with RLE cellulitis with open wounds on the RLE with minimal discharge. improving NEUROLOGICAL: Cranial nerves II through XII grossly intact. Normal speech. PSYCH: Normal mood, normal affect. SKIN: Warm, dry, normal turgor, no rashes or lesions noted CBCD WBC 5.6 K/mm3 (4.0-10.0) 01/24/17 07:33 RBC 3.88 M/mm3 (3.60-5.2) 01/24/17 07:33 Hgb 12.6 GM/dL (10.7-15.3) 01/24/17 07:33 Hct 37.9 % (32.4-45.2) 01/24/17 07:33 MCV 97.7 fl (80-96) H 01/24/17 07:33 MCHC 33.2 g/dl (32.0-36.0) 01/24/17 07:33 RDW 13.6 % (11.6-15.6) 01/24/17 07:33 Plt Count 201 K/MM3 (134-434) 01/24/17 07:33 MPV 7.2 fl (7.5-11.1) L 01/24/17 07:33 CMP Sodium 140 mmol/L (136-145) 01/24/17 07:33 Potassium 4.4 mmol/L (3.5-5.1) 01/24/17 07:33 Chloride 103 mmol/L (98-107) 01/24/17 07:33 Carbon Dioxide 33 mmol/L (21-32) H 01/24/17 07:33 Anion Gap 4 (8-16) L 01/24/17 07:33 BUN 17 mg/dL (7-18) 01/24/17 07:33 Creatinine 1.1 mg/dL (0.55-1.02) H 01/24/17 07:33 Creat Clearance w eGFR 50.67 (>60) 01/21/17 07:05 Random Glucose 79 mg/dL (74-106) 01/24/17 07:33 Calcium 9.2 mg/dL (8.5-10.1) 01/24/17 07:33 Total Bilirubin 0.5 mg/dL (0.2-1.0) D 01/21/17 07:05 AST 12 U/L (15-37) L D 01/21/17 07:05 ALT 18 U/L (12-78) 01/21/17 07:05 Alkaline Phosphatase 68 U/L (45-117) 01/21/17 07:05 Total Protein 6.3 g/dl (6.4-8.2) L 01/21/17 07:05 Albumin 3.3 g/dl (3.4-5.0) L 01/21/17 07:05 Current Medications Generic Name Dose Route Start Last Admin Trade Name Freq PRN Reason Stop Dose Admin Acetaminophen 650 mg 01/21/17 12:26 01/24/17 11:02 Tylenol - PO 650 mg Q4H PRN Administration FEVER OR PAIN Aspirin 81 mg 01/21/17 10:00 01/26/17 11:02 Asa - PO 81 mg DAILY [facility] Administration Bacitracin 1 applic 01/21/17 11:30 01/26/17 10:21 Bacitracin - TP Not Given DAILY [facility] Bupropion HCl 300 mg 01/21/17 11:45 01/26/17 11:02 Wellbutrin Xl - PO 300 mg DAILY [facility] Administration Calcium Carbonate/Cholecalciferol 1 tab 01/21/17 10:00 01/26/17 11:01 Os-Alan 500+D - PO 1 tab BID [facility] Administration Carvedilol 3.125 mg 01/20/17 22:00 01/26/17 11:01 Coreg - PO 3.125 mg BID [facility] Administration Citalopram Hydrobromide 40 mg 01/21/17 10:00 01/26/17 11:03 Celexa - PO 40 mg DAILY [facility] Administration Clonazepam 1 mg 01/20/17 22:00 01/25/17 22:09 Klonopin - PO 1 mg HS [facility] Administration Furosemide 40 mg 01/21/17 10:00 01/26/17 11:03 Lasix Injection - IVPUSH 40 mg DAILY [facility] Administration Heparin Sodium (Porcine) 5,000 unit 01/24/17 14:00 01/26/17 13:55 Heparin - SQ Not Given TID [facility] Piperacillin Sod/Tazobactam 50 mls @ 100 mls/hr 01/21/17 11:30 01/26/17 13:23 Sod 3.375 gm/ Dextrose IVPB 100 mls/hr Q8H-IV [facility] Administration Protocol Vancomycin HCl 250 mls @ 200 mls/hr 01/24/17 10:00 01/26/17 13:55 Vancomycin (Pre-Docked) IVPB 200 mls/hr Q24H [facility] Administration Lactobacillus Acidophilus 1 tab 01/24/17 22:00 01/26/17 11:01 Bacid - PO 1 tab BID [facility] Administration Lamotrigine 100 mg/ 300 mg 01/21/17 10:00 01/26/17 11:01 Lamotrigine 200 mg PO 300 mg DAILY [facility] Administration Multi-Ingredient Ointment 1 applic 01/24/17 22:00 01/25/17 22:38 Zinc Oxide TP 1 applic BID [facility] Administration Multivitamins/Minerals/Vitamin C 1 tab 01/21/17 10:00 01/26/17 11:01 Tab-A-Vit - PO 1 tab DAILY [facility] Administration Patient's Own 0.75 mg 01/23/17 14:00 01/26/17 13:55 Medication (Non- PO 0.75 mg Formulary) ( TID [facility] Administration Pramipexole 0.75 Mg) Citrucel Caplets - 3 each 01/24/17 16:30 01/26/17 11:05 Patient Own Med PO 3 each Q2D@10 [facility] Administration Citrucel Caplets - 1 each 01/25/17 10:00 01/25/17 10:02 Patient Own Med PO Not Given Q2D@10 [facility] Oxycodone HCl 10 mg 01/25/17 22:00 01/26/17 11:02 Oxycontin - PO 10 mg BID [facility] Administration Potassium Chloride 10 meq 01/20/17 22:00 01/26/17 11:01 K-Dur - PO 10 meq BID [facility] Administration Silver Sulfadiazine 1 applic 01/24/17 10:30 01/25/17 22:41 Silvadene - TP 1 applic BID [facility] Administration Home Medications Medication Instructions Recorded Bumetanide 1 mg PO BID 05/28/15 Bupropion HCl [Wellbutrin Xl -] 300 mg PO DAILY 05/28/15 Carvedilol [Coreg] 3.125 mg PO BID 05/28/15 Citalopram Hydrobromide [Celexa -] 40 mg PO HS 05/28/15 Clonazepam [Klonopin] 1 mg PO HS 05/28/15 Lamotrigine [Lamictal] 300 mg PO DAILY 05/28/15 Potassium Chloride [K-Tab] 10 meq PO BID 05/28/15 Spironolactone 25 mg PO DAILY 05/28/15 Pramipexole Di-HCl [Pramipexole 0.75 mg PO BID 01/23/17 Dihydrochloride] 01/20/17 17:52 Leg - Right Lower Gram Stain - Final 01/20/17 17:52 Leg - Right Lower Wound Culture - Final Pseudo Fluorescens/Putida Group D Strep Or Entero Coccus Staphylococcus Coagulase Neg 01/21/17 12:30 Blood - Peripheral Venous Blood Culture - Preliminary NO GROWTH OBTAINED AFTER 48 HOURS, INCUBATION TO CONTINUE FOR 3 DAYS. 01/21/17 12:25 Blood - Peripheral Venous Blood Culture - Preliminary NO GROWTH OBTAINED AFTER 48 HOURS, INCUBATION TO CONTINUE FOR 3 DAYS. ASSESSMENT/PLAN: Patient is a 61 yo female presents to hospital with failed outpatient treatment for leg ulcer/ cellulitis. Patient has chronic leg lympedema was started on SIlvadene on leg wound about 2 weeks ago prior to the admission. # Acute RLE Cellulitis with open wounds with minimal discharge improving, On IV vancomycin and zosyn continue, Vanco.level is adjusted by ID. Apply silvadene cream to RLE with beni bandages on Both lower extremities. Swelling of lower extremities are improving . possible discharge home on oral meds. discussed with # Acute diarrhea improving, less diarrhea today ,Cdiff is neg. asking for Imodium prn # Acute over chronic Lymphedema continue diuresis with lasix; duplex dopplers negative #Hx of Spinal stenosis continue oxycontin 10mg tid # Bipolar disorder without psychotic features continue home regimen, well controlled # Macrocytic mild anemia, will check [id number] . follow folic acid # Hx of Osteoporosis, Vit D level as an outpatient. DVT Px: Heparin sq tid possible discharge in am with oral antibiotics Visit type - Emergency Visit Emergency Visit: Yes ED Registration Date: 01/20/17 Care time: The patient presented to the Emergency Department on the above date and was hospitalized for further evaluation of their emergent condition. - New Patient This patient is new to me today: No - Critical Care Critical Care patient: No - Discharge Referral Referred to [facility] Med [facility].C[facility] No
[2017-01-26] MEDS: SILVER SULFADIAZINE 1% TOP CREAM 50 GM JAR TP SCH ×2 (18:10→21:40)
[2017-01-26] MEDS: clonazePAM 0.5 MG TABLET PO SCH (21:37)
[2017-01-27] MEDS ORDERED: DEXTROSE 5%-WATER - 50 ML IVPB ONE (00:26)
[2017-01-27] MEDS ORDERED: PIPERACILLIN/TAZOBACTAM 3.375 GM VIAL IVPB ONE (00:26)
[2017-01-27] MEDS: PIPERACILLIN/TAZOB 3.375 GM 3.375 GM in DEXTROSE 5%-WATER - 50 ML IVPB SCH (01:05)
[2017-01-27] MEDS: PRAMIPEXOLE 0.75 MG PO SCH ×3 (05:53→23:02)
[2017-01-27] MEDS: HEPARIN NA (PORCINE) 5,000 UNITS/ML 1ML VIAL SQ SCH ×2 (05:54→14:58)
[2017-01-27] MEDS ORDERED: INSULIN (NOVOLOG) ASPART 100 UNITS/ML 10ML VIAL ONE (06:36)
[2017-01-27 08:23] LABS: BASOPHIL 1.3 % (0-2.0); EOSINOPHIL 7.7 % (0-4.5); MCH 32.6 pg (25.7-33.7); MCHC 33.3 g/dl (32.0-36.0); MEAN CELL VOLUME 97.7 fl (80-96); MEAN PLT VOLUME 7.3 fl (7.5-11.1); NEUTROPHILS 50.8 % (42.8-82.8); PLATELET COUNT 197 K/MM3 (134-434); WHITE BLOOD COUNT 5.6 K/mm3 (4.0-10.0)
[2017-01-27 08:49] LABS: ALBUMIN 3.7 g/dl (3.4-5.0); ALK PHOS 69 U/L (45-117); ANION GAP 5 (8-16); BILIRUBIN,TOTAL 0.5 mg/dL (0.2-1.0); CALCIUM 9.4 mg/dL (8.5-10.1); CO2 30 mmol/L (21-32); CREATININE 1.1 mg/dL (0.55-1.02); GLUCOSE,RANDOM 74 mg/dL (74-106); SGOT/AST 25 U/L (15-37); SGPT/ALT 30 U/L (12-78)
[2017-01-27] MEDS ORDERED: PT OWN MED DRAWER 7, Y5N ONE (10:44)
[2017-01-27] MEDS: CITALOPRAM HYDROBROMIDE 20 MG TABLET (FP) PO SCH (11:02)
[2017-01-27] MEDS: CARVEDILOL 3.125 MG TABLET (FP) PO SCH ×2 (11:02→23:00)
[2017-01-27] MEDS: BACITRACIN 15 GM TUBE TOPICAL OINTMENT TP SCH (11:02)
[2017-01-27] MEDS: LACTOBACILLUS ACIDOPHILUS 1 EACH TAB (FP) PO SCH ×2 (11:02→22:59)
[2017-01-27] MEDS: FUROSEMIDE 40 MG/4 ML INJECTABLE VIAL IVPUSH SCH (11:03)
[2017-01-27] MEDS: POTASSIUM CHLORIDE TABS 10 MEQ TABLET.ER (FP) PO SCH ×2 (11:03→23:01)
[2017-01-27] MEDS: LAMOTRIGINE PO SCH (11:03)
[2017-01-27] MEDS: CITRUCEL PO SCH (11:04)
[2017-01-27] MEDS: oxyCODONE HCL 10 MG SUSTAINED ACTING TABLET PO SCH ×3 (11:04→22:59)
[2017-01-27] MEDS: CALCIUM 500MG/VIT-D 200 UNITS COMBO TABLET (FP) PO SCH ×2 (11:04→23:00)
[2017-01-27] MEDS: VANCOMYCIN 1 GRAM (PRE-DOCKED) 250 ML IVPB SCH (11:07)
[2017-01-27] MEDS: SILVER SULFADIAZINE 1% TOP CREAM 50 GM JAR TP SCH ×2 (11:07→23:08)
[2017-01-27] MEDS: MULTIVITAMINS (DAILY MVI) TABLET (FP) PO SCH (11:07)
[2017-01-27] MEDS: ZINC OXIDE 20% TOPICAL OINTMENT 30 GM TUBE TP SCH ×2 (11:08→23:09)
[2017-01-27] MEDS: ASPIRIN 81 MG CHEWABLE TABLETS PO SCH (11:32)
--- NOTE | 2017-01-27 13:18 | PN ---
Progress Note, Physician Chief Complaint: Ms Edmonds is having significant pain secondary to her oxycontin being reduced. She says her legs are feeling much better today. No cp or sob. Severe back pain. - Current Medication List Current Medications: Active Medications Acetaminophen (Tylenol -) 650 mg PO Q4H PRN PRN Reason: FEVER OR PAIN Last Admin: 01/24/17 11:02 Dose: 650 mg Aspirin (Asa -) 81 mg PO DAILY [facility] Last Admin: 01/27/17 11:32 Dose: 81 mg Bacitracin (Bacitracin -) 1 applic TP DAILY [facility] Last Admin: 01/27/17 11:02 Dose: Not Given Bupropion HCl (Wellbutrin Xl -) 300 mg PO DAILY [facility] Last Admin: 01/27/17 11:07 Dose: 300 mg Calcium Carbonate/Cholecalciferol (Os-Alan 500+D -) 1 tab PO BID [facility] Last Admin: 01/27/17 11:04 Dose: 1 tab Carvedilol (Coreg -) 3.125 mg PO BID [facility] Last Admin: 01/27/17 11:02 Dose: 3.125 mg Citalopram Hydrobromide (Celexa -) 40 mg PO DAILY [facility] Last Admin: 01/27/17 11:02 Dose: 40 mg Clonazepam (Klonopin -) 1 mg PO HS [facility] Last Admin: 01/26/17 21:37 Dose: 1 mg Furosemide (Lasix Injection -) 40 mg IVPUSH DAILY [facility] Last Admin: 01/27/17 11:03 Dose: 40 mg Heparin Sodium (Porcine) (Heparin -) 5,000 unit SQ TID [facility] Last Admin: 01/27/17 05:54 Dose: Not Given Piperacillin Sod/Tazobactam (Sod 3.375 gm/ Dextrose) 50 mls @ 100 mls/hr IVPB Q8H-IV SHON PRN Reason: Protocol Last Admin: 01/27/17 01:05 Dose: 100 mls/hr Vancomycin HCl (Vancomycin (Pre-Docked)) 250 mls @ 200 mls/hr IVPB Q24H [facility] Last Admin: 01/27/17 11:07 Dose: 200 mls/hr Lactobacillus Acidophilus (Bacid -) 1 tab PO BID [facility] Last Admin: 01/27/17 11:02 Dose: 1 tab Lamotrigine 100 mg/ (Lamotrigine 200 mg) 300 mg PO DAILY [facility] Last Admin: 01/27/17 11:03 Dose: 300 mg Multi-Ingredient Ointment (Zinc Oxide) 1 applic TP BID [facility] Last Admin: 01/27/17 11:08 Dose: 1 applic Multivitamins/Minerals/Vitamin C (Tab-A-Vit -) 1 tab PO DAILY [facility] Last Admin: 01/27/17 11:07 Dose: 1 tab Patient's Own Medication (Non- Formulary) ( Pramipexole 0.75 Mg) 0.75 mg PO TID [facility] Last Admin: 01/27/17 05:53 Dose: 0.75 mg Citrucel Caplets - (Patient Own Med) 3 each PO Q2D@10 [facility] Last Admin: 01/26/17 11:05 Dose: 3 each Citrucel Caplets - (Patient Own Med) 1 each PO Q2D@10 [facility] Last Admin: 01/27/17 11:04 Dose: 1 each Oxycodone HCl (Oxycontin -) 10 mg PO TID [facility] Potassium Chloride (K-Dur -) 10 meq PO BID [facility] Last Admin: 01/27/17 11:03 Dose: 10 meq Silver Sulfadiazine (Silvadene -) 1 applic TP BID [facility] Last Admin: 01/27/17 11:07 Dose: 1 applic - Objective Vital Signs: Vital Signs Temperature 36.7 C 01/27/17 08:00 Pulse Rate 76 01/27/17 08:00 Respiratory Rate 20 01/27/17 08:00 Blood Pressure 122/62 01/27/17 08:00 O2 Sat by Pulse Oximetry (%) 100 01/27/17 08:00 Constitutional: Yes: No Distress, Calm Cardiovascular: Yes: Regular Rate and Rhythm. No: Gallop, Murmur, Rub Respiratory: Yes: Regular, CTA Bilaterally. No: Rales, Rhonchi, Wheezes Gastrointestinal: Yes: Normal Bowel Sounds, Soft. No: Distention, Tenderness Extremities: Yes: Erythema Edema: No Edema: LLE: 2+, RLE: 2+ Labs: CBC, BMP 01/27/17 06:00 01/27/17 06:00 INR, PTT INR 0.99 (0.82-1.09) 01/20/17 18:15 Problem List - Problems (1) Cellulitis Code(s): L03.90 - CELLULITIS, UNSPECIFIED Qualifiers: Site of cellulitis: extremity Site of cellulitis of extremity: lower extremity Laterality: right Qualified Code(s): L03.115 - Cellulitis of right lower limb (2) Lymphedema Code(s): I89.0 - LYMPHEDEMA, NOT ELSEWHERE CLASSIFIED (3) Spinal stenosis Code(s): M48.00 - SPINAL STENOSIS, SITE UNSPECIFIED (4) Bipolar disorder without psychotic features Code(s): F31.9 - BIPOLAR DISORDER, UNSPECIFIED (5) Diarrhea Code(s): R19.7 - DIARRHEA, UNSPECIFIED Assessment/Plan (1) Cellulitis Assessment/Plan: -appreciate ID assistance -case d/w Dr Cohen -change to oral antibiotics today -monitor, if remains stable can d/c tomorrow Code(s): L03.90 - CELLULITIS, UNSPECIFIED Qualifiers: Site of cellulitis: extremity Site of cellulitis of extremity: lower extremity Laterality: right Qualified Code(s): L03.115 - Cellulitis of right lower limb (2) Lymphedema Assessment/Plan: -continue diuresis with lasix -change to oral lasix on discharge Code(s): I89.0 - LYMPHEDEMA, NOT ELSEWHERE CLASSIFIED (3) Spinal stenosis Assessment/Plan: -oxycontin reduced to bid yesterday -patient chronically on tid dosing, now with severe pain -changed back to tid, plan to discharge tomorrow if pain is controlled Code(s): M48.00 - SPINAL STENOSIS, SITE UNSPECIFIED (4) Bipolar disorder without psychotic features Assessment/Plan: -continue home regimen -well controlled Code(s): F31.9 - BIPOLAR DISORDER, UNSPECIFIED (5) Diarrhea -resolved
--- NOTE | 2017-01-27 13:22 | PN ---
Progress Note, Physician History of Present Illness: Less leg pain Still with diarrhea No fever/ chills - Current Medication List Current Medications: Active Medications Acetaminophen (Tylenol -) 650 mg PO Q4H PRN PRN Reason: FEVER OR PAIN Last Admin: 01/24/17 11:02 Dose: 650 mg Amoxicillin/Clavulanate Potassium (Augmentin - 875mg Tablet) 1 tab PO BID@0800, 1730 [facility] Aspirin (Asa -) 81 mg PO DAILY [facility] Last Admin: 01/27/17 11:32 Dose: 81 mg Bacitracin (Bacitracin -) 1 applic TP DAILY [facility] Last Admin: 01/27/17 11:02 Dose: Not Given Bupropion HCl (Wellbutrin Xl -) 300 mg PO DAILY [facility] Last Admin: 01/27/17 11:07 Dose: 300 mg Calcium Carbonate/Cholecalciferol (Os-Alan 500+D -) 1 tab PO BID [facility] Last Admin: 01/27/17 11:04 Dose: 1 tab Carvedilol (Coreg -) 3.125 mg PO BID [facility] Last Admin: 01/27/17 11:02 Dose: 3.125 mg Citalopram Hydrobromide (Celexa -) 40 mg PO DAILY [facility] Last Admin: 01/27/17 11:02 Dose: 40 mg Clonazepam (Klonopin -) 1 mg PO HS [facility] Last Admin: 01/26/17 21:37 Dose: 1 mg Furosemide (Lasix Injection -) 40 mg IVPUSH DAILY [facility] Last Admin: 01/27/17 11:03 Dose: 40 mg Heparin Sodium (Porcine) (Heparin -) 5,000 unit SQ TID [facility] Last Admin: 01/27/17 05:54 Dose: Not Given Lactobacillus Acidophilus (Bacid -) 1 tab PO BID [facility] Last Admin: 01/27/17 11:02 Dose: 1 tab Lamotrigine 100 mg/ (Lamotrigine 200 mg) 300 mg PO DAILY [facility] Last Admin: 01/27/17 11:03 Dose: 300 mg Multi-Ingredient Ointment (Zinc Oxide) 1 applic TP BID [facility] Last Admin: 01/27/17 11:08 Dose: 1 applic Multivitamins/Minerals/Vitamin C (Tab-A-Vit -) 1 tab PO DAILY [facility] Last Admin: 01/27/17 11:07 Dose: 1 tab Patient's Own Medication (Non- Formulary) ( Pramipexole 0.75 Mg) 0.75 mg PO TID [facility] Last Admin: 01/27/17 05:53 Dose: 0.75 mg Citrucel Caplets - (Patient Own Med) 3 each PO Q2D@10 [facility] Last Admin: 01/26/17 11:05 Dose: 3 each Citrucel Caplets - (Patient Own Med) 1 each PO Q2D@10 [facility] Last Admin: 01/27/17 11:04 Dose: 1 each Oxycodone HCl (Oxycontin -) 10 mg PO TID [facility] Potassium Chloride (K-Dur -) 10 meq PO BID [facility] Last Admin: 01/27/17 11:03 Dose: 10 meq Silver Sulfadiazine (Silvadene -) 1 applic TP BID [facility] Last Admin: 01/27/17 11:07 Dose: 1 applic - Objective Vital Signs: Vital Signs Temperature 98.0 F 01/27/17 08:00 Pulse Rate 76 01/27/17 08:00 Respiratory Rate 20 01/27/17 08:00 Blood Pressure 122/62 01/27/17 08:00 O2 Sat by Pulse Oximetry (%) 100 01/27/17 08:00 Constitutional: Yes: No Distress Eyes: Yes: Conjunctiva Clear Cardiovascular: Yes: Regular Rate and Rhythm, S1, S2 Respiratory: Yes: CTA Bilaterally Gastrointestinal: Yes: Normal Bowel Sounds, Soft. No: Tenderness Extremities: Yes: Other (decreased erythema LE bilaterally R LE ulcer without drainage) Edema: Yes Labs: CBC, BMP 01/27/17 06:00 01/27/17 06:00 INR, PTT INR 0.99 (0.82-1.09) 01/20/17 18:15 Assessment/Plan Bilateral LE cellulitis + Wound c/s SCN, Enterococcus, Pseudomonas Chronic LE lymphedema S/P B/L THR Switch to po Augmentin 875mg bid x 7d Instructed pt to keep LE elevated at home
[2017-01-27] MEDS: AMOX TR/POT CLAV 875MG/125MG TABLETS (FP) PO SCH ×2 (14:54→18:17)
--- NOTE | 2017-01-27 16:26 | PN ---
Progress Note (short form) - Note Progress Note: Called to room secondary to patient having a mechanical fall. States she was getting up and leaned on the table which moved. Because of that she fell and hit the right side of her head (frontotemporal region) and R humeral area and R hip. Fall was mechanical and not secondary to syncope. She did not lose consciousness. She is having pain in her head and R arm and R leg. Gen: nad, bruising at right frontotemporal region without bleeding CV: rrr Pulm: ctab GI: s/nt/nd Ext: bruising at R humeral area, no bruising on hip Neuro: A&O x3, no sensory or motor deficits 1. Mechanical fall -obtain head CT -x-ray of R shoulder, humerus, hip, and pelvis -PT consult -will hold heparin -check PT/INR and PTT Problem List - Problems (1) Cellulitis Code(s): L03.90 - CELLULITIS, UNSPECIFIED Qualifiers: Site of cellulitis: extremity Site of cellulitis of extremity: lower extremity Laterality: right Qualified Code(s): L03.115 - Cellulitis of right lower limb (2) Lymphedema Code(s): I89.0 - LYMPHEDEMA, NOT ELSEWHERE CLASSIFIED (3) Spinal stenosis Code(s): M48.00 - SPINAL STENOSIS, SITE UNSPECIFIED (4) Bipolar disorder without psychotic features Code(s): F31.9 - BIPOLAR DISORDER, UNSPECIFIED (5) Diarrhea Code(s): R19.7 - DIARRHEA, UNSPECIFIED
[2017-01-27 19:57] LABS: INR 0.98 (0.82-1.09); PROTHROMBIN TIME (PATIENT) 10.8 SEC (9.98-11.88)
[2017-01-27 20:00] LABS: ACTIVATED PTT 33.7 SECONDS (26.9-34.4)
[2017-01-27] MEDS: clonazePAM 0.5 MG TABLET PO SCH (23:01)
[2017-01-28] MEDS: oxyCODONE HCL 10 MG SUSTAINED ACTING TABLET PO SCH ×3 (06:25→21:29)
[2017-01-28] MEDS: PRAMIPEXOLE 0.75 MG PO SCH ×3 (06:26→21:27)
[2017-01-28 08:31] LABS: BASOPHIL 1.5 % (0-2.0); EOSINOPHIL 6.9 % (0-4.5); MCH 32.6 pg (25.7-33.7); MCHC 33.3 g/dl (32.0-36.0); MEAN PLT VOLUME 7.2 fl (7.5-11.1); NEUTROPHILS 58.2 % (42.8-82.8); PLATELET COUNT 209 K/MM3 (134-434); RDW 13.1 % (11.6-15.6); WHITE BLOOD COUNT 5.6 K/mm3 (4.0-10.0)
[2017-01-28 09:02] LABS: ANION GAP 8 (8-16); CO2 30 mmol/L (21-32); GLUCOSE,RANDOM 91 mg/dL (74-106)
[2017-01-28 09:03] LABS: CALCIUM 9.3 mg/dL (8.5-10.1); MAGNESIUM 2.6 mg/dL (1.8-2.4)
[2017-01-28] MEDS ORDERED: PT OWN MED DRAWER 7, Y5N ONE (10:43)
[2017-01-28] MEDS: CALCIUM 500MG/VIT-D 200 UNITS COMBO TABLET (FP) PO SCH ×2 (10:46→21:28)
[2017-01-28] MEDS: AMOX TR/POT CLAV 875MG/125MG TABLETS (FP) PO SCH ×2 (10:46→17:31)
[2017-01-28] MEDS: ASPIRIN 81 MG CHEWABLE TABLETS PO SCH (10:47)
[2017-01-28] MEDS: CITALOPRAM HYDROBROMIDE 20 MG TABLET (FP) PO SCH (10:47)
[2017-01-28] MEDS: LACTOBACILLUS ACIDOPHILUS 1 EACH TAB (FP) PO SCH ×2 (10:48→21:28)
[2017-01-28] MEDS: MULTIVITAMINS (DAILY MVI) TABLET (FP) PO SCH (10:48)
[2017-01-28] MEDS: CITRUCEL PO SCH (10:49)
[2017-01-28] MEDS: lamoTRIgine 100 MG TABLET (FP) PO SCH (10:50)
[2017-01-28] MEDS: POTASSIUM CHLORIDE TABS 10 MEQ TABLET.ER (FP) PO SCH ×2 (10:51→21:30)
[2017-01-28] MEDS: CARVEDILOL 3.125 MG TABLET (FP) PO SCH ×2 (10:51→21:28)
[2017-01-28] MEDS: BACITRACIN 15 GM TUBE TOPICAL OINTMENT TP SCH (10:52)
[2017-01-28] MEDS: FUROSEMIDE 40 MG/4 ML INJECTABLE VIAL IVPUSH SCH (10:52)
[2017-01-28] MEDS: SILVER SULFADIAZINE 1% TOP CREAM 50 GM JAR TP SCH ×2 (10:52→21:37)
[2017-01-28] MEDS: ZINC OXIDE 20% TOPICAL OINTMENT 30 GM TUBE TP SCH ×2 (10:54→22:48)
--- NOTE | 2017-01-28 13:06 | PN ---
Progress Note, Physician Chief Complaint: Ms Edmonds is saying she is having back pain today, concerned secondary to her fall. No cp, sob, n/v. - Current Medication List Current Medications: Active Medications Acetaminophen (Tylenol -) 650 mg PO Q4H PRN PRN Reason: FEVER OR PAIN Last Admin: 01/24/17 11:02 Dose: 650 mg Amoxicillin/Clavulanate Potassium (Augmentin - 875mg Tablet) 1 tab PO BID@0800, 1730 [facility] Last Admin: 01/28/17 10:46 Dose: 1 tab Aspirin (Asa -) 81 mg PO DAILY [facility] Last Admin: 01/28/17 10:47 Dose: 81 mg Bacitracin (Bacitracin -) 1 applic TP DAILY [facility] Last Admin: 01/28/17 10:52 Dose: Not Given Bupropion HCl (Wellbutrin Xl -) 300 mg PO DAILY [facility] Last Admin: 01/28/17 10:48 Dose: 300 mg Calcium Carbonate/Cholecalciferol (Os-Alan 500+D -) 1 tab PO BID [facility] Last Admin: 01/28/17 10:46 Dose: 1 tab Carvedilol (Coreg -) 3.125 mg PO BID [facility] Last Admin: 01/28/17 10:51 Dose: 3.125 mg Citalopram Hydrobromide (Celexa -) 40 mg PO DAILY [facility] Last Admin: 01/28/17 10:47 Dose: 40 mg Clonazepam (Klonopin -) 1 mg PO HS [facility] Last Admin: 01/27/17 23:01 Dose: 1 mg Furosemide (Lasix Injection -) 40 mg IVPUSH DAILY [facility] Last Admin: 01/28/17 10:52 Dose: 40 mg Lactobacillus Acidophilus (Bacid -) 1 tab PO BID [facility] Last Admin: 01/28/17 10:48 Dose: 1 tab Lamotrigine (Lamictal -) 300 mg PO DAILY [facility] Last Admin: 01/28/17 10:50 Dose: 300 mg Multi-Ingredient Ointment (Zinc Oxide) 1 applic TP BID [facility] Last Admin: 01/28/17 10:54 Dose: 1 applic Multivitamins/Minerals/Vitamin C (Tab-A-Vit -) 1 tab PO DAILY [facility] Last Admin: 01/28/17 10:48 Dose: 1 tab Patient's Own Medication (Non- Formulary) ( Pramipexole 0.75 Mg) 0.75 mg PO TID [facility] Last Admin: 01/28/17 06:26 Dose: 0.75 mg Citrucel Caplets - (Patient Own Med) 3 each PO Q2D@10 [facility] Last Admin: 01/28/17 10:49 Dose: 3 each Citrucel Caplets - (Patient Own Med) 1 each PO Q2D@10 [facility] Last Admin: 01/27/17 11:04 Dose: 1 each Oxycodone HCl (Oxycontin -) 10 mg PO TID [facility] Last Admin: 01/28/17 06:25 Dose: 10 mg Potassium Chloride (K-Dur -) 10 meq PO BID [facility] Last Admin: 01/28/17 10:51 Dose: 10 meq Silver Sulfadiazine (Silvadene -) 1 applic TP BID [facility] Last Admin: 01/28/17 10:52 Dose: 1 applic - Objective Vital Signs: Vital Signs Temperature 36.7 C 01/28/17 12:04 Pulse Rate 74 01/28/17 12:04 Respiratory Rate 20 01/28/17 12:04 Blood Pressure 126/84 01/28/17 12:04 O2 Sat by Pulse Oximetry (%) 98 01/28/17 08:00 Constitutional: Yes: No Distress, Calm, Obese Cardiovascular: Yes: Regular Rate and Rhythm. No: Gallop, Murmur, Rub Respiratory: Yes: Regular, CTA Bilaterally. No: Rales, Rhonchi, Wheezes Gastrointestinal: Yes: Normal Bowel Sounds, Soft. No: Distention, Tenderness Extremities: Yes: WNL Edema: No Labs: CBC, BMP 01/28/17 07:30 01/28/17 07:30 INR, PTT INR 0.98 (0.82-1.09) 01/27/17 19:28 Problem List - Problems (1) Cellulitis Code(s): L03.90 - CELLULITIS, UNSPECIFIED Qualifiers: Site of cellulitis: extremity Site of cellulitis of extremity: lower extremity Laterality: right Qualified Code(s): L03.115 - Cellulitis of right lower limb (2) Lymphedema Code(s): I89.0 - LYMPHEDEMA, NOT ELSEWHERE CLASSIFIED (3) Spinal stenosis Code(s): M48.00 - SPINAL STENOSIS, SITE UNSPECIFIED (4) Bipolar disorder without psychotic features Code(s): F31.9 - BIPOLAR DISORDER, UNSPECIFIED (5) Diarrhea Code(s): R19.7 - DIARRHEA, UNSPECIFIED Assessment/Plan (1) Cellulitis Assessment/Plan: -on oral antibiotics -finish as an outpatient Code(s): L03.90 - CELLULITIS, UNSPECIFIED Qualifiers: Site of cellulitis: extremity Site of cellulitis of extremity: lower extremity Laterality: right Qualified Code(s): L03.115 - Cellulitis of right lower limb (2) Lymphedema Assessment/Plan: -continue diuresis with lasix -change to oral lasix on discharge today Code(s): I89.0 - LYMPHEDEMA, NOT ELSEWHERE CLASSIFIED (3) Spinal stenosis Assessment/Plan: -continue oxycontin -saying pain is worsened with fall -will obtain x-ray of spine, if WNL will d/c home with follow up Code(s): M48.00 - SPINAL STENOSIS, SITE UNSPECIFIED (4) Bipolar disorder without psychotic features Assessment/Plan: -continue home regimen -well controlled Code(s): F31.9 - BIPOLAR DISORDER, UNSPECIFIED (5) Diarrhea -resolved (6) Fall -head CT negative -x-rays of R humerus/shoulder/pelvis without fracture -patient seen by PT and walking -observed walking around room and sitting/standing without difficulty -x-ray of lumbrosacral spine as above
[2017-01-28] MEDS: FUROSEMIDE 40 MG TABLET (FP) PO SCH (15:24)
[2017-01-28] MEDS: clonazePAM 0.5 MG TABLET PO SCH (21:28)
[2017-01-29] MEDS: ACETAMINOPHEN 325 MG TABLET (FP) PO PRN ×2 (05:00→10:58)
[2017-01-29] MEDS: oxyCODONE HCL 10 MG SUSTAINED ACTING TABLET PO SCH ×2 (05:39→14:17)
[2017-01-29] MEDS: PRAMIPEXOLE 0.75 MG PO SCH ×3 (05:40→14:18)
[2017-01-29] MEDS: AMOX TR/POT CLAV 875MG/125MG TABLETS (FP) PO SCH ×2 (08:33→17:38)
[2017-01-29] MEDS: LACTOBACILLUS ACIDOPHILUS 1 EACH TAB (FP) PO SCH (10:57)
[2017-01-29] MEDS: CITALOPRAM HYDROBROMIDE 20 MG TABLET (FP) PO SCH (10:57)
[2017-01-29] MEDS: ASPIRIN 81 MG CHEWABLE TABLETS PO SCH (10:57)
[2017-01-29] MEDS: CALCIUM 500MG/VIT-D 200 UNITS COMBO TABLET (FP) PO SCH (10:57)
[2017-01-29] MEDS: POTASSIUM CHLORIDE TABS 10 MEQ TABLET.ER (FP) PO SCH (10:57)
[2017-01-29] MEDS: MULTIVITAMINS (DAILY MVI) TABLET (FP) PO SCH (10:57)
[2017-01-29] MEDS: CARVEDILOL 3.125 MG TABLET (FP) PO SCH (10:57)
[2017-01-29] MEDS: FUROSEMIDE 40 MG TABLET (FP) PO SCH (10:57)
[2017-01-29] MEDS: lamoTRIgine 100 MG TABLET (FP) PO SCH (10:58)
[2017-01-29] MEDS: ZINC OXIDE 20% TOPICAL OINTMENT 30 GM TUBE TP SCH (11:00)
[2017-01-29] MEDS: BACITRACIN 15 GM TUBE TOPICAL OINTMENT TP SCH (11:01)
[2017-01-29] MEDS ORDERED: PT OWN MED DRAWER 7, Y5N ONE (11:03)
[2017-01-29] MEDS: CITRUCEL PO SCH (11:07)
[2017-01-29] MEDS: SILVER SULFADIAZINE 1% TOP CREAM 50 GM JAR TP SCH (11:11)
--- NOTE | 2017-01-29 13:22 | DS ---
Physical Examination Vital Signs: Vital Signs Temperature 36.9 C 01/29/17 12:00 Pulse Rate 85 01/29/17 12:00 Respiratory Rate 20 01/29/17 12:00 Blood Pressure 122/74 01/29/17 12:00 O2 Sat by Pulse Oximetry (%) 98 01/28/17 21:00 Constitutional: Yes: No Distress, Calm, Obese Cardiovascular: Yes: Regular Rate and Rhythm. No: Gallop, Murmur, Rub Respiratory: Yes: Regular, CTA Bilaterally. No: Rales, Rhonchi, Wheezes Gastrointestinal: Yes: Normal Bowel Sounds, Soft. No: Distention, Tenderness Extremities: Yes: WNL Edema: No Labs: CBC, BMP 01/28/17 07:30 01/28/17 07:30 Discharge Summary Reason For Visit: CELLULITIS Current Active Problems Bipolar disorder without psychotic features (Acute) Cellulitis (Acute) Diarrhea (Acute) Edema extremities (Acute) Lymphedema (Acute) Parkinson disease (Acute) Spinal stenosis (Acute) Wound cellulitis (Acute) Hospital Course: (1) Cellulitis Code(s): L03.90 - CELLULITIS, UNSPECIFIED Qualifiers: Site of cellulitis: extremity Site of cellulitis of extremity: lower extremity Laterality: right Qualified Code(s): L03.115 - Cellulitis of right lower limb (2) Lymphedema Code(s): I89.0 - LYMPHEDEMA, NOT ELSEWHERE CLASSIFIED (3) Spinal stenosis Code(s): M48.00 - SPINAL STENOSIS, SITE UNSPECIFIED (4) Bipolar disorder without psychotic features Code(s): F31.9 - BIPOLAR DISORDER, UNSPECIFIED (5) Diarrhea (6) Fall Mrs Edmonds is a pleasant 61 year old female who came in with lymphedema complicated by cellulitis. She was admitted to the hospital and seen by ID. She was started on vancomycin and zosyn. She improved and was successfully transitioned to augmentin. She also had edema and was diuresed with IV lasix. She can be restarted on her home aldactone and bumex. Her hospital stay was complicated by a mechanical fall. She underwent head CT, R shoulder/humerus, and R hip x-rays which were normal. She began to complain of worsening back pain the next day after the fall. X-ray of the lumbrosacral spine was performed which showed compression fractures, probably chronic but cannot rule out acute. Because of this an MRI of the lumbar spine was done which showed no acute fracture. Patient is safe for discharge home with follow up. 37 minutes spent in preparation of this discharge Condition: Good - Instructions Diet, Activity, Other Instructions: resume previous diet and activity Referrals: Hector Garcia MD [Primary Care Provider] - Enrique Luciano MD [Staff Physician] - Disposition: VNS/HOME HEALTH CARE - Home Medications Comprehensive Discharge Medication List: Ambulatory Orders Bumetanide 1 mg PO BID 05/28/15 Bupropion HCl [Wellbutrin Xl -] 300 mg PO DAILY 05/28/15 Carvedilol [Coreg] 3.125 mg PO BID 05/28/15 Citalopram Hydrobromide [Celexa -] 40 mg PO HS 05/28/15 Clonazepam [Klonopin] 1 mg PO HS 05/28/15 Lamotrigine [Lamictal] 300 mg PO DAILY 05/28/15 Potassium Chloride [K-Tab] 10 meq PO BID 05/28/15 Spironolactone 25 mg PO DAILY 05/28/15 Pramipexole Di-HCl [Pramipexole Dihydrochloride] 0.75 mg PO BID 01/23/17 Amox-Tr/K Cl [Augmentin 875-125mg Tablet -] 1 tab PO BID@0800,1730 #14 tablet Lactobacillus Acidophilus [Bacid -] 1 tab PO BID #20 tab 01/29/17 Oxycodone Sr [Oxycontin] 10 mg PO TID tab.sr MDD 30mg 01/29/17
[2017-01-29 14:36] VITALS: BP 118/51; PULSE 82; TEMP 97.6
== END 2017-01-29 18:16 | disposition home health service (06) | DRG 603 ==
LOC: JER 16:31 → JERBED 18:59 → J6S 20:40
PROVIDERS: ADMIT Internal Medicine; ATTEND Internal Medicine
DX: L03.115 Cellulitis of right lower limb (principal); Z68.41 Body mass index [BMI] 40.0-44.9, adult; L97.819 Non-pressure chronic ulcer of other part of right lower leg with unspecified severity; I87.2 Venous insufficiency (chronic) (peripheral); I10 Essential (primary) hypertension; F31.9 Bipolar disorder, unspecified; F17.210 Nicotine dependence, cigarettes, uncomplicated; G20 Parkinson's disease; Z96.643 Presence of artificial hip joint, bilateral; Z98.84 Bariatric surgery status; F12.10 Cannabis abuse, uncomplicated; I89.0 Lymphedema, not elsewhere classified; M48.00 Spinal stenosis, site unspecified; E66.9 Obesity, unspecified; R19.7 Diarrhea, unspecified; T21.12XA Burn of first degree of abdominal wall, initial encounter; T31.0 Burns involving less than 10% of body surface; X12.XXXA Contact with other hot fluids, initial encounter; Y93.89 Activity, other specified; Y92.230 Patient room in hospital as the place of occurrence of the external cause; Y99.8 Other external cause status; B95.8 Unspecified staphylococcus as the cause of diseases classified elsewhere; B95.1 Streptococcus, group B, as the cause of diseases classified elsewhere; D53.9 Nutritional anemia, unspecified; M81.0 Age-related osteoporosis without current pathological fracture
CPT/HCPCS: 36415; 70450-TC; 71010-TC; 72100-TC; 72148-TC; 73030-TC-RT; 73060-TC-RT; 73523-TC; 73590-TC-RT; 80048; 80053; 82607; 82746; 83735; 84100; 85025; 85610; 85651; 85730; 86140; 87040; 87070; 87077; 87186; 87205; 87324; 87449; 90688; 93005; 93010; 93970-TC; 97116-GP; 97161-GP; 99282-25; G0008; G0480; J1644

== ENCOUNTER 2019-01-13 19:32 | Inpatient (IN) | payer OTHER, MEDICARE ==
--- NOTE | 2019-01-13 19:41 | PDOC ---
Rapid Medical Evaluation Time Seen by Provider: 01/13/19 19:38 Medical Evaluation: Allergies Allergy/AdvReac Type Severity Reaction Status Date / Time No Known Drug Allergies Allergy Verified 01/20/17 16:37 lactose AdvReac Verified 01/23/17 14:22 BEE STINGS Allergy Severe Hives Uncoded 01/20/17 16:37 01/13/19 19:38 I have performed a brief in-person evaluation of this patient. The patient presents with a chief complaint of: non-healing wound to right leg Pertinent physical exam findings: venous stasis changes to BLE. Taking Keflex and Bactrim without improvement. I have ordered the following: labs, duplex The patient will proceed to the ED for further evaluation. Discharge Disposition - Diagnosis Cellulitis - Referrals Referrals: Hector Garcia MD [Primary Care Provider] - - Patient Instructions - Post Discharge Activity
--- NOTE | 2019-01-13 20:56 | PDOC ---
History of Present Illness - General Chief Complaint: Wound Stated Complaint: INFECTION Time Seen by Provider: 01/13/19 19:38 - History of Present Illness Initial Comments: Nia Edmonds is a 63yo woman with a PMH of chronic b/l lymphedema, HTN, Parkinson's, chronic back pain who presents with a non-healing wound to the right antoine. She reports that she hit her antoine while swimming in her pool about 2.5 weeks ago. Initially the wound was draining thick yellow fluid, and she saw her PMD (Dr Garcia) who prescribed keflex. When the wound continued not to heal after about a week, he added bactrim and silvadene as well. Ms Edmonds states that the drainage from her wound has become watery yellow over the past 1-1.5 weeks. She denies any fever, chills, or any warmth, redness, or swelling around the wound. She states that her primary doctor requested that she present to the ED for IV antibiotics because she had a similar wound also on the right antoine several years ago, and it became infected and required more than a week of IV antibiotics after appearing to improve after 2-3 weeks. Past History - Past Medical History Allergies/Adverse Reactions: Allergies Allergy/AdvReac Type Severity Reaction Status Date / Time No Known Drug Allergies Allergy Verified 01/13/19 19:39 lactose AdvReac Verified 01/13/19 19:39 BEE STINGS Allergy Severe Hives Uncoded 01/13/19 19:39 Home Medications: Ambulatory Orders Bumetanide 1 mg PO BID 05/28/15 Bupropion HCl [Wellbutrin Xl -] 300 mg PO DAILY 05/28/15 Carvedilol [Coreg] 3.125 mg PO BID 05/28/15 Citalopram Hydrobromide [Celexa -] 40 mg PO HS 05/28/15 Clonazepam [Klonopin] 1 mg PO HS 05/28/15 Lamotrigine [Lamictal] 300 mg PO DAILY 05/28/15 Potassium Chloride [K-Tab] 10 meq PO BID 05/28/15 Spironolactone 25 mg PO DAILY 05/28/15 Pramipexole Di-HCl [Pramipexole Dihydrochloride] 0.75 mg PO BID 01/23/17 oxyCODONE SR [Oxycontin] 10 mg PO TID tab.sr MDD 30mg 01/29/17 Aspirin [ASA -] 1 tab PO DAILY 03/06/17 Nystatin 1 applic TD DAILY 03/06/17 Triamcinolone 0.1% Cream [Aristocort 0.1% Cream -] 1 applic TD DAILY 03/06/17 Cephalexin [Keflex] 500 mg PO QID #28 capsule 03/27/17 Silver Sulfadiazine [Silvadene] 85 gm TP DAILY #1 cream..g. 03/27/17 Mupirocin Cream [Bactroban 2% Cream -] 1 applic TP DAILY #1 tube 03/30/17 Anemia: No Asthma: No Cancer: No Cardiac Disorders: Yes (HX OF A LEAKY HEART VALVE REPORTED BY PT) CVA: No COPD: No CHF: No Dementia: No Diabetes: No GI Disorders: No Disorders: No HTN: Yes Hypercholesterolemia: No Liver Disease: No Psychiatric Problems: Yes (BIPOLAR) Seizures: No Thyroid Disease: No - Surgical History Abdominal Surgery: Yes (Lap Band 2010) Appendectomy: No Cardiac Surgery: No Cholecystectomy: No Lung Surgery: No Neurologic Surgery: No Orthopedic Surgery: Yes (RIGHT CTR) - Immunization History Immunization Up to Date: No - Suicide/Smoking/Psychosocial Hx Smoking History: Current every day smoker Have you smoked in the past 12 months: Yes Number of Cigarettes Smoked Daily: 20 Information on smoking cessation initiated: No 'Breaking Loose' booklet given: 01/20/17 Hx Alcohol Use: No Drug/Substance Use Hx: No Substance Use Type: None Hx Substance Use Treatment: No Review of Systems - Review of Systems Comments:: General: No fevers, no chills, no weight or appetite change, no malaise HEENT: No changes in vision, no changes in hearing, no congestion, no sore throat CV: No chest pain, no palpitations, no LE edema Pulm: No SOB, no cough, no wheezing GI: No nausea or vomiting, no change in bowel habits, no melena : No frequency, no urgency, no dysuria Musc: No back pain, no joint swelling, no recent injury Skin: See HPI Endo: No excessive thirst, no heat/cold intolerance Heme: No unusual bruising or bleeding, no swollen glands Neuro: No syncope, no numbness/tingling, no focal weakness Vasc: No claudication. +lymphedema Psych: No recent change in mood, no SI or HI *Physical Exam - Vital Signs Last Vital Signs Temp Pulse Resp BP Pulse Ox 98.5 F 102 H 18 137/81 100 01/13/19 19:40 01/13/19 19:40 01/13/19 19:40 01/13/19 19:40 01/13/19 19:40 - Physical Exam Comments: General: Comfortable, no acute distress HEENT: PERRL, EOMI, MMM, voice normal, normal neck ROM, no LAD Cards: RRR, no murmur appreciated Pulm: Comfortable on room air, clear to auscultation bilaterally Abd: Soft, nontender, nondistended Ext: Atraumatic. 4+ BLE edema to over knees. ROM intact. WWP Skin: BLE w/ skin darkening c/w chronic venous stasis. Approx 1cm superficial wound on anterior right antoine. [place] w/ small amount of fibrinous exudate. No surrounding erythema, edema, or warmth. No purulence appreciated Neuro: A&Ox3, CN grossly intact, normal speech, motor/sensory grossly intact and symmetric Psych: Mood appropriate to situation ED Treatment Course - LABORATORY CBC & Chemistry Diagram: 01/13/19 21:06 01/13/19 21:06 Medical Decision Making - Medical Decision Making 01/13/19 20:42 Nia Edmonds is a 63yo woman with a PMH of chronic b/l lymphedema, HTN, Parkinson's, chronic back pain who presents with a non-healing wound to the right antoine for 2.5 weeks. She has been taking keflex and then keflex/bactrim for 2.5 weeks, and her PMD Dr Garcia sent her to the ED for IV antibiotics for cellulitis that failed outpatient treatment. - Wound does not appear infected; no purulence, no surrounding erythema/edema/ warmth - CBC, CMP ordered in RME - Will discuss w/ ED team, but pt may be able to continue outpatient treatment with wound care follow up 01/13/19 22:07 - Labs reviewed, unremarkable - Discussed w/ Dr Mo. Will order duplex US and xray of RLE to evaluate for acute changes that could be exacerbating delay in wound healing - Will admit as pt's PMD requested admission 01/13/19 22:23 - Spoke to Dr Swift. Will accept to med/surg on Dr Araya' service - Updated pt regarding plan. She understands and agrees. Discussed with Dr Mo. Sarah Valencia PGY2 *DC/Admit/Observation/Transfer Diagnosis at time of Disposition: Venous (peripheral) insufficiency, Wound cellulitis - Discharge Dispostion Decision to Admit order: Yes - Referrals Referrals: Hector Garcia MD [Primary Care Provider] - - Patient Instructions - Post Discharge Activity
[2019-01-13 21:11] LABS: BASO % 1.5 % (0-2.0); EOS % 6.6 % (0-4.5); HEMATOCRIT 40.1 % (32.4-45.2); HEMOGLOBIN 13.6 GM/dL (10.7-15.3); MCH 32.7 pg (25.7-33.7); MEAN CELL VOLUME 96.2 fl (80-96); MEAN PLT VOLUME 7.2 fl (7.5-11.1); MONO % 9.8 % (3.8-10.2); NEUT % 57.1 % (42.8-82.8); PLATELET COUNT 222 K/MM3 (134-434); RBC 4.16 M/mm3 (3.60-5.2); WHITE BLOOD COUNT 6.8 K/mm3 (4.0-10.0)
[2019-01-13 21:41] LABS: BILIRUBIN,TOTAL 0.3 mg/dL (0.2-1); BLOOD UREA NITROGEN 22.9 mg/dL (7-18); CALCIUM 9.1 mg/dL (8.5-10.1); CREATININE 1.3 mg/dL (0.55-1.3); POTASSIUM 4.4 mmol/L (3.5-5.1); TOT PROT 7.2 g/dl (6.4-8.2)
--- NOTE | 2019-01-13 22:33 | PDOC ---
Documentation entered by John Mesa SCRIBE, acting as scribe for Trixie Mo DO. Trixie Mo, DO: This documentation has been prepared by the Bonita bowen Xhesika, SCRIBE, under my direction and personally reviewed by me in its entirety. I confirm that the documentation accurately reflects all work, treatment, procedures, and medical decision making performed by me. Attending Attestation - Resident Resident Name: Sarah Valencia - ED Attending Attestation I have performed the following: I have examined & evaluated the patient, The case was reviewed & discussed with the resident, I agree w/resident's findings & plan, Exceptions are as noted - HPI HPI: 01/13/19 21:40 The patient is a 63 year old female with a significant PMH of chronic b/l lymphedema, HTN, Parkinson's, chronic back pain who presents to the emergency department from Dr. Trejo office for failed outpatient PO antibiotics (bactrim, keflex) for LE cellulitis. Patient states she endorses R antoine wound with watery yellow drainage for the past 1.5 weeks. Patient states she was advised to come to the ED for IV antibiotics. The patient denies chest pain, shortness of breath, headache and dizziness. Denies fever, chills, cough, nausea, vomiting, diarrhea and constipation. Denies dysuria, frequency, urgency and hematuria. Allergies: Lactose, bee sting PCP: Dr. Garcia - Physicial Exam PE: 01/13/19 22:29 Gen: aaox3, nad ext: b/l LE swelling, mild redness which is chronic for the patient, quarter sized wound to anterior tibia - no active drainage, granulation tissue present, no warmth, no fluctuance, no induration - Medical Decision Making 01/13/19 22:30 a/p: 63yo female with R leg wound -wound does not appear infected -chronic le swelling and redness which is not worse than normal -has been on keflex and bactrim, but states the dressing at home gets coated with brown and yellow discharge -no bleeding -no increased swelling -no warmth -concern for nonhealing wound -labs sent, duplex ultrasound -will need admission 01/13/19 22:33 resident discussed the case with ricky who accepts pt to service 01/13/19 22:33 no fevers, no elevated wbc 01/13/19 22:34 pt will be admitted to ricky resident discussed the case with ricky
[2019-01-13] MEDS ORDERED: VANCOMYCIN 1 GM in D5W (PRE-DOCKED) 1,000 MG/250 ML IVPB ONE (22:34)
[2019-01-13] MEDS ORDERED: VANCOMYCIN 1 GRAM (PRE-DOCKED) 1,000 MG/250 ML BAG IVPB ONE (23:25)
--- NOTE | 2019-01-14 01:53 | HP ---
CHIEF COMPLAINT:RLE wound PCP:Dr. Garcia HISTORY OF PRESENT ILLNESS: Patient is a 63 year old female with past medical history bilateral LE lymphedema, HTN, peripheral venous insufficiency, Parkinson's disease, chronic low back pain, bipolar disorder, skin cancer, presented to the ED by her PCP due to non-healing right leg wound. Two weeks ago, patient reported she hit her antoine on pool step and noted a wound. The next day, she noticed drainage on her compression stockings and whe she looked at it, noted thick yellow fluid draining from the wound. Patient went to her PCP where she was prescribed Keflex for 7 days. On the 7th day, patient did not noted any improvement of the wound, and PCP added Bactrim to the Keflex which she took for another 7 days. Silvadene cream was applied as well. Due to persistence of the wound and reported continued drainage with surrounding redness, patient was advised by PCP to come to the ED for IV antibiotics. Patient denies any fever, chills, headache, dizziness, chest pain, SOB, abdominal pain, diarrhea, urinary symptoms. ER course was notable for: (1)Vanc/Zosyn x1 (2) (3) Recent Travel:denies PAST MEDICAL HISTORY: bilateral LE lymphedema HTN peripheral venous insufficiency Parkinson's disease chronic low back pain bipolar disorder PAST SURGICAL HISTORY: MOHS surgery (excisional skin removal of skin cancer) Cervical plasto-laminectomy (2015) b/l hip replacement (2009), revised in 2010, 2012 Carpal Tunnel Release Abdominal lap band 2010 Left leg surgery for venous stasis cyst removal - left 3rd digit distal phalanx Social History: Smoking:smokes 1ppd Alcohol:occasional EtOH use Drugs: medicinal marijuana Family History: Father - Parkinson's, skin cancer Mother - skin cancer, Alzheimer's dementia Sister - breast CA Allergies No Known Drug Allergies Allergy (Verified 01/13/19 19:39) lactose Adverse Reaction (Verified 01/13/19 19:39) BEE STINGS Allergy (Severe, Uncoded 01/13/19 19:39) Hives HOME MEDICATIONS: Home Medications Medication Instructions Recorded Bumetanide 2 mg PO BID 05/28/15 Bupropion HCl [Wellbutrin Xl -] 300 mg PO DAILY 05/28/15 Carvedilol [Coreg] 3.125 mg PO BID 05/28/15 Citalopram Hydrobromide [Celexa -] 40 mg PO HS 05/28/15 Clonazepam [Klonopin] 1 mg PO HS 05/28/15 Lamotrigine [Lamictal] 300 mg PO DAILY 05/28/15 Potassium Chloride [K-Tab] 10 meq PO BID 05/28/15 Spironolactone 25 mg PO DAILY 05/28/15 Pramipexole Di-HCl [Pramipexole 0.75 mg PO BID 01/23/17 Dihydrochloride] oxyCODONE SR [Oxycontin] 10 mg PO TID tab.sr MDD 30mg 01/29/17 Aspirin [ASA -] 1 tab PO DAILY 03/06/17 Nystatin 1 applic TD DAILY 03/06/17 Triamcinolone 0.1% Cream 1 applic TD DAILY 03/06/17 [Aristocort 0.1% Cream -] Cephalexin [Keflex] 500 mg PO QID #28 capsule 03/27/17 Silver Sulfadiazine [Silvadene] 85 gm TP DAILY #1 cream..g. 03/27/17 Mupirocin Cream [Bactroban 2% 1 applic TP DAILY #1 tube 03/30/17 Cream -] REVIEW OF SYSTEMS CONSTITUTIONAL: Absent: fever, chills, diaphoresis, generalized weakness, malaise, loss of appetite, weight change HEENT: Absent: rhinorrhea, nasal congestion, throat pain, throat swelling, difficulty swallowing, mouth swelling, ear pain, eye pain, visual changes CARDIOVASCULAR: Absent: chest pain, syncope, palpitations, irregular heart rate, lightheadedness , peripheral edema RESPIRATORY: Absent: cough, shortness of breath, dyspnea with exertion, orthopnea, wheezing, stridor, hemoptysis GASTROINTESTINAL: Absent: abdominal pain, abdominal distension, nausea, vomiting, diarrhea, constipation, melena, hematochezia GENITOURINARY: Absent: dysuria, frequency, urgency, hesitancy, hematuria, flank pain, genital pain MUSCULOSKELETAL: Absent: myalgia, arthralgia, joint swelling, back pain, neck pain SKIN: Absent: rash, itching, pallor HEMATOLOGIC/IMMUNOLOGIC: Absent: easy bleeding, easy bruising, lymphadenopathy, frequent infections ENDOCRINE: Absent: unexplained weight gain, unexplained weight loss, heat intolerance, cold intolerance NEUROLOGIC: Absent: headache, focal weakness or paresthesias, dizziness, unsteady gait, seizure, mental status changes, bladder or bowel incontinence PSYCHIATRIC: Absent: anxiety, depression, suicidal or homicidal ideation, hallucinations. PHYSICAL EXAMINATION Vital Signs - 24 hr 01/13/19 01/13/19 01/14/19 19:40 19:55 01:08 Temperature 98.5 F 97.9 F 98.2 F Pulse Rate 102 H Pulse Rate [ 92 H 90 Left Apical] Respiratory 18 18 16 Rate Blood Pressure 137/81 Blood Pressure 120/65 133/72 [Right Arm] O2 Sat by Pulse 100 100 96 Oximetry (%) GENERAL: Awake, alert, and fully oriented, in no acute distress. HEAD: Normal with no signs of trauma. EYES: PERRLA, EOMI, sclera anicteric, conjunctiva clear. EARS, NOSE, THROAT: Moist mucous membranes. NECK: Normal range of motion, supple without lymphadenopathy, JVD, or masses. LUNGS: Breath sounds equal, clear to auscultation bilaterally. HEART: Regular rate and rhythm, normal S1 and S2 without murmur, rub or gallop. ABDOMEN: Soft, nontender, not distended, normoactive bowel sounds. MUSCULOSKELETAL: Normal range of motion at all joints. UPPER EXTREMITIES: 2+ pulses, warm, well-perfused.No peripheral edema. LOWER EXTREMITIES: 2+ pulses, warm, well-perfused. B/L LE edema. RLE: +stage 1 ulcer at the mid-antoine area with purulent crusty yellow discharge around the ulcer, minimal redness surrounding the ulcer NEUROLOGICAL: Cranial nerves II-XII intact. Normal speech. Normal gait. PSYCHIATRIC: Cooperative. Good eye contact. Appropriate mood and affect. SKIN: Warm, dry, normal turgor. Laboratory Results - last 24 hr 01/13/19 01/13/19 21:06 21:06 WBC 6.8 RBC 4.16 Hgb 13.6 Hct 40.1 MCV 96.2 H MCH 32.7 MCHC 34.0 RDW 14.0 Plt Count 222 MPV 7.2 L Absolute Neuts (auto) 3.9 Neutrophils % 57.1 Lymphocytes % 25.0 Monocytes % 9.8 Eosinophils % 6.6 H Basophils % 1.5 Nucleated RBC % 0 Sodium 139 Potassium 4.4 Chloride 104 Carbon Dioxide 28 Anion Gap 7 L BUN 22.9 H Creatinine 1.3 Est GFR (CKD-EPI)AfAm 50.92 Est GFR (CKD-EPI)NonAf 43.93 Random Glucose 75 Calcium 9.1 Total Bilirubin 0.3 AST 32 ALT 36 Alkaline Phosphatase 102 Total Protein 7.2 Albumin 4.0 ASSESSMENT/PLAN: Patient is a 63 year old female with past medical history bilateral LE lymphedema, HTN, peripheral venous insufficiency, Parkinson's disease, chronic low back pain, bipolar disorder, skin cancer, presented to the ED by her PCP due to non-healing right leg wound. #RLE wound with ?cellulitis -IV Vanc and zosyn given at the ED -will continue empiric treatment with vanc/zosyn -ESR/CRP order -Xray done, did not show any periosteal elevation or bony changes as per my read -if elevated ESR, consider MRI to rule out osteomyelitis -ID (Dr. Cohen) consulted. #HTN -continue home Coreg #Parkinson's disease -continue home meds #bipolar disorder -continue home meds #FEN -Not on any standing fluids -Electrolytes wnl, routine bmp monitoring -Regular diet #Prophylaxis -Heparin 5000u sq tid #Disposition -full code -admit to med surg Visit type - Emergency Visit Emergency Visit: Yes ED Registration Date: 01/13/19 Care time: The patient presented to the Emergency Department on the above date and was hospitalized for further evaluation of their emergent condition. - New Patient This patient is new to me today: Yes Date on this admission: 01/13/19 - Critical Care Critical Care patient: No ATTENDING PHYSICIAN STATEMENT I saw and evaluated the patient. I reviewed the resident's note and discussed the case with the resident. I agree with the resident's findings and plan as documented. SUBJECTIVE: OBJECTIVE: ASSESSMENT AND PLAN:
[2019-01-14] MEDS: HEPARIN NA (PORCINE) 5,000 UNITS/ML 1ML VIAL SQ SCH ×3 (02:18→18:03)
[2019-01-14] MEDS ORDERED: PIPERACILLIN/TAZOBACTAM 3.375 GM VIAL IVPB ONE ×3 (02:28→16:34)
[2019-01-14] MEDS ORDERED: DEXTROSE 5%-WATER - 50 ML IVPB ONE ×3 (02:28→16:34)
--- NOTE | 2019-01-14 02:48 | PN ---
Teaching Attending Note Name of Resident: Daniela De La Fuente ATTENDING PHYSICIAN STATEMENT I saw and evaluated the patient. Chart, data, imaging reviewed. I reviewed the resident's note and discussed the case with the resident. I agree with the resident's findings and plan as documented. SUBJECTIVE: 63 year old female with a significant PMH of chronic b/l lymphedema, HTN, Parkinson's, chronic back pain with right mid-antoine lesion, present for several wks. Sent from Dr. Trejo office for failed outpatient PO antibiotics (bactrim, keflex). Found to have crusted purulent d/c. She said she hit her leg on a pool step prior to her ulcerative lesion appearing. OBJECTIVE:c Last Vital Signs Temp Pulse Resp BP Pulse Ox 98.2 F 90 16 133/72 96 01/14/19 01:08 01/14/19 01:08 01/14/19 01:08 01/14/19 01:08 01/14/19 01:08 gen- nad, aaox3 heent -at, nc, no sinus tenderness cv-s1+s2+rrr chest clear abdomen soft, nt ext -right lower ext - mid antoine circular lesion, purulent, crusty yellow d/c seen around ulcer, chronic b/l lower ext chronic venous stasis changes seen. Minimal signs of significant cellulitis around site. Visible some granulation tissue in wound area. Abnormal Lab Results 01/13/19 01/13/19 21:06 21:06 MCV 96.2 H MPV 7.2 L Eosinophils % 6.6 H Anion Gap 7 L BUN 22.9 H right tib/fib xray appears to have bones grossly intact, no cortical defects noted ASSESSMENT AND PLAN: subacute cellulitis/ ulcerative lesion on right mid antoine with no response to bactrim/keflex and need for IV antibiotics -admit to med/surg -ideally patient would benefit from deep wound culture to obtain microbiological diagnosis -would treat empirically at this time with vancomcycin and zosyn -esr, crp -if high ESR, would consider mri of right leg to r/o bony involvement of infection -c/w parkinsonism meds, ant -htn meds -heparin sc for dvt ppx
[2019-01-14] MEDS: PIPERACILLIN/TAZOB 3.375 GM 3.375 GM in DEXTROSE 5%-WATER - 50 ML IVPB SCH ×3 (02:58→18:03)
[2019-01-14 03:39] VITALS: BMI 40.4
[2019-01-14 07:40] LABS: BASO % 1.1 % (0-2.0); EOS % 6.1 % (0-4.5); HEMATOCRIT 36.5 % (32.4-45.2); HEMOGLOBIN 12.4 GM/dL (10.7-15.3); LYMPH % 31.8 % (8-40); MCH 32.9 pg (25.7-33.7); MCHC 34.1 g/dl (32.0-36.0); MEAN CELL VOLUME 96.4 fl (80-96); MEAN PLT VOLUME 7.8 fl (7.5-11.1); MONO % 11.3 % (3.8-10.2); NEUT % 49.7 % (42.8-82.8); PLATELET COUNT 208 K/MM3 (134-434); RBC 3.79 M/mm3 (3.60-5.2); RDW 14.2 % (11.6-15.6); WHITE BLOOD COUNT 6.9 K/mm3 (4.0-10.0)
[2019-01-14 07:54] LABS: BLOOD UREA NITROGEN 28.9 mg/dL (7-18); CREATININE 1.2 mg/dL (0.55-1.3); MAGNESIUM 2.7 mg/dL (1.8-2.4); POTASSIUM 3.7 mmol/L (3.5-5.1)
[2019-01-14] MEDS ORDERED: PT OWN MED DRAWER 7, Y5N ONE (08:48)
[2019-01-14] MEDS: BUMETANIDE 1 MG TABLET PO SCH ×2 (08:58→15:15)
[2019-01-14] MEDS: ESCITALOPRAM OXALATE 20 MG TABLET (FP) PO SCH (08:58)
[2019-01-14] MEDS: ASPIRIN 81 MG CHEWABLE TABLETS PO SCH (09:07)
[2019-01-14] MEDS: CARVEDILOL 3.125 MG TABLET (FP) PO SCH ×2 (09:07→22:48)
[2019-01-14] MEDS: lamoTRIgine 100 MG TABLET (FP) PO SCH (09:07)
[2019-01-14] MEDS: SPIRONOLACTONE 25 MG TABLET (FP) PO SCH (09:07)
--- NOTE | 2019-01-14 09:11 | CONSULT ---
- Consultation REQUESTING PROVIDER: CONSULT REQUEST: We have been asked to surgically evaluate this patient for right LE cellulitis/wound PCP:Sancho Mcgovern HISTORY OF PRESENT ILLNESS: Nia Edmonds is a 63yo woman with a PMH of chronic b /l lymphedema, HTN, Parkinson's, chronic back pain who presents with a non- healing wound to the right antoine. She reports that she hit her antoine while swimming in her pool about 3 weeks ago. Initially the wound was draining thick yellow fluid, and she saw her PMD (Dr Garcia) who prescribed keflex. When the wound continued not to heal after about a week, he added bactrim and silvadene as well. Ms Edmonds states that the drainage from her wound has become watery yellow over the past 1-1.5 weeks. She denies any fever, chills, or any warmth, redness, or swelling around the wound. She states that her primary doctor requested that she present to the ED for IV antibiotics because she had a similar wound also on the right antoine several years ago, and it became infected and required several weeks of IV antibiotics with PICC line before fully resolving. PMHX Anemia: No Asthma: No Cancer: No Cardiac Disorders: Yes (HX OF A LEAKY HEART VALVE REPORTED BY PT) CVA: No COPD: No CHF: No Dementia: No Diabetes: No GI Disorders: No Disorders: No HTN: Yes Hypercholesterolemia: No Liver Disease: No Psychiatric Problems: Yes (BIPOLAR) Seizures: No Thyroid Disease: No - Surgical History Abdominal Surgery: Yes (Lap Band 2010) Appendectomy: No Cardiac Surgery: No Cholecystectomy: No Lung Surgery: No Neurologic Surgery: No Orthopedic Surgery: Yes (RIGHT CTR) - Immunization History Immunization Up to Date: No - Suicide/Smoking/Psychosocial Hx Smoking History: Current every day smoker Have you smoked in the past 12 months: Yes Number of Cigarettes Smoked Daily: 20 Information on smoking cessation initiated: No 'Breaking Loose' booklet given: 01/20/17 Hx Alcohol Use: No Drug/Substance Use Hx: No Substance Use Type: None Hx Substance Use Treatment: No Review of Systems - Review of Systems Comments:: General: No fevers, no chills, no weight or appetite change, no malaise HEENT: No changes in vision, no changes in hearing, no congestion, no sore throat CV: No chest pain, no palpitations, +LE edema Pulm: No SOB, no cough, no wheezing GI: No nausea or vomiting, no change in bowel habits : No frequency, Musc: No back pain, no joint swelling, no recent injury Skin: See HPI Endo: No excessive thirst, no heat/cold intolerance Heme: No unusual bruising or bleeding, no swollen glands Neuro: No syncope, no numbness/tingling, no focal weakness Vasc: No claudication. +lymphedema Psych: No recent change in mood, no SI or HI Home Medications Medication Instructions Recorded Bumetanide 1 mg PO BID 05/28/15 Bupropion HCl [Wellbutrin Xl -] 300 mg PO DAILY 05/28/15 Carvedilol [Coreg] 3.125 mg PO BID 05/28/15 Clonazepam [Klonopin] 3.5 mg PO HS 05/28/15 Lamotrigine [Lamictal] 300 mg PO DAILY 05/28/15 Potassium Chloride [K-Tab] 10 meq PO BID 05/28/15 Spironolactone 25 mg PO DAILY 05/28/15 Pramipexole Di-HCl [Pramipexole 0.75 mg PO BID 01/23/17 Dihydrochloride] Aspirin [ASA -] 1 tab PO DAILY 03/06/17 Cephalexin [Keflex] 500 mg PO QID #28 capsule 03/27/17 Silver Sulfadiazine [Silvadene] 85 gm TP DAILY #1 cream..g. 03/27/17 Celecoxib [Celebrex] 200 mg PO DAILY 01/14/19 Escitalopram Oxalate [Lexapro -] 20 mg PO AM 01/14/19 Phentermine HCl 37.5 mg PO AM 01/14/19 Phentermine HCl 37.5 mg PO DAILY 01/14/19 Quetiapine Fumarate [Seroquel] 300 mg PO HS 01/14/19 Quetiapine Fumarate [Seroquel] 300 mg PO HS 01/14/19 Allergies Allergy/AdvReac Type Severity Reaction Status Date / Time No Known Drug Allergies Allergy Verified 01/13/19 19:39 lactose AdvReac Verified 01/13/19 19:39 BEE STINGS Allergy Severe Hives Uncoded 01/13/19 19:39 PHYSICAL EXAM: GENERAL: Awake, alert, and fully oriented, in no acute distress. HEAD: Normal with no signs of trauma. EYES: sclera anicteric, conjunctiva clear. LUNGS Unlabored resp on RA, No accessory muscle use. UPPER EXTREMITIES: 2+ pulses, warm, well-perfused. No peripheral edema. LOWER EXTREMITIES: B/L LE with cellulitis and pitting edema throughout. compartments soft, supple with mild ttp, warm and well-perfused. +2 DP and PT pulses. Right LE with small @ 1.5x 2cm with fibrinous exudate at base, no foul odor or d/c seen, boarders well defined with surrounding tissue intact. NEUROLOGICAL: Normal speech, gait not observed. PSYCH: Cooperative. Good eye contact. Appropriate mood and affect. SKIN: Warm, dry, normal turgor Vital Signs Temperature 97.6 F 01/14/19 06:07 Pulse Rate 88 01/14/19 06:07 Respiratory Rate 20 01/14/19 06:07 Blood Pressure 108/47 L 01/14/19 06:07 O2 Sat by Pulse Oximetry (%) 96 01/14/19 01:08 Lab Results WBC 6.9 K/mm3 (4.0-10.0) 01/14/19 06:43 RBC 3.79 M/mm3 (3.60-5.2) 01/14/19 06:43 Hgb 12.4 GM/dL (10.7-15.3) 01/14/19 06:43 Hct 36.5 % (32.4-45.2) 01/14/19 06:43 MCV 96.4 fl (80-96) H 01/14/19 06:43 MCHC 34.1 g/dl (32.0-36.0) 01/14/19 06:43 RDW 14.2 % (11.6-15.6) 01/14/19 06:43 Plt Count 208 K/MM3 (134-434) 01/14/19 06:43 Sodium 140 mmol/L (136-145) 01/14/19 06:43 Potassium 3.7 mmol/L (3.5-5.1) 01/14/19 06:43 Chloride 102 mmol/L (98-107) 01/14/19 06:43 Carbon Dioxide 29 mmol/L (21-32) 01/14/19 06:43 Anion Gap 9 MMOL/L (8-16) 01/14/19 06:43 BUN 28.9 mg/dL (7-18) H 01/14/19 06:43 Creatinine 1.2 mg/dL (0.55-1.3) 01/14/19 06:43 Random Glucose 101 mg/dL (74-106) 01/14/19 06:43 Calcium 9.0 mg/dL (8.5-10.1) 01/14/19 06:43 X-Ray, Tib/fib-no fractures or lesions. Vascular duplex right LE with no evidence of DVT Problem List - Problems (1) Cellulitis Assessment/Plan: 63yo with right LE wound and cellulitis failure to respond to oral ABX with palpable pulses and no evidence for vascular intervention. 1) light beni compression to b/l LE daily 2) IV ABX per ID 3) Bacitracin to right LE wound daily 4) Elevate LE when in bed 5) reconsult vascular surgery PRN Evaluation and plan discussed with Dr Watkins Code(s): L03.90 - CELLULITIS, UNSPECIFIED Qualifiers:
[2019-01-14] MEDS: PRAMIPEXOLE DIHYDROCHLORIDE 0.25 MG TABLET PO SCH ×2 (09:48→22:51)
[2019-01-14] MEDS: SILVER SULFADIAZINE 1% TOP CREAM 50 GM JAR TP SCH (09:48)
[2019-01-14] MEDS ORDERED: PHENTERMINE HCL 37.5 MG PO SCH (10:00)
--- NOTE | 2019-01-14 11:11 | PN ---
Progress Note (short form) - Note Progress Note: ID consult dictated imp/reccd 63 yo female with chronic lymphedema with nonhealing ulcer for 3 weeks she injured her leg in the swimming pool she saw her PMD took keflex for one week bactrim added and silvadene topically sent to ed with complaints ofpersistent drainage from the ulcer now dry no fevers or chills reports when she uses her lymphedema compression stocking na dpump the wound oozes! now with an eschar reports erythema of her legs are at baseline started on vancomycn and zosyn no cultures sent (apparently draining ulcer last night in ED, now dry) nonhealing ulcer secondary to her lymphedema continue zosyn for now-short trial as patient reports drainage has stopped ( but she is also not using her pump) vascular surgery to see suspect she should wrap her legs instead of pump for now in order for ulcer to heal? d/w Dr Watkins who will see her later today Problem List - Problems (1) Nonhealing ulcer of right lower extremity Code(s): L97.919 - NON-PRS CHRONIC ULC UNSP PRT OF R LOW LEG W UNSP SEVERITY (2) Lymphedema Code(s): I89.0 - LYMPHEDEMA, NOT ELSEWHERE CLASSIFIED
--- NOTE | 2019-01-14 12:42 | CONS ---
INFECTIOUS DISEASE CONSULTATION DATE OF CONSULTATION: DATE OF DICTATION: 01/14/2019 REQUESTING PHYSICIAN: Hector Garcia MD HISTORY: A 63-year-old woman with a history of chronic lymphedema of her legs. She has a history of bilateral lymphedema of her legs. She had cellulitis of the right lower extremity in 2017. She now comes in complaining of a nonhealing ulcer to her right leg. She banged her antoine on the step in her swimming pool. She developed a wound. She noted drainage and then she went to see her PCP who gave her Keflex for 7 days. She did not notice any improvement. She was then put on Bactrim. She has been taking the Keflex and Bactrim and using Silvadene to the wound. She reports that every time she uses her compression stockings, which she has been trying to do intermittently, she has drainage from the site. She has no fevers and chills and, otherwise, feels well. PAST MEDICAL HISTORY: Notable for bilateral lower extremity lymphedema. She has a history of hypertension, peripheral venous insufficiency, Parkinson disease, chronic low back pain, bipolar disorder. She in 2017 had a prior nonhealing wound on her leg and cellulitis. SURGICAL HISTORY: Notable for Mohs surgery. She has a history of cervical laminectomy in 2015. She has had bilateral hip replacements in 2009 with a revision of 1 of the hips in 2010. This other hip was done in 2012. She has had carpal tunnel release. She had a Lap-Band placed in 2013. She has had a recent cyst removal from the left 3rd distal phalanx. The sutures are still intact, and she has had left leg surgery. SOCIAL HISTORY: She smokes 1 pack per day. Occasional alcohol. No substance use. She lives with her family. FAMILY HISTORY: Notable for Parkinson disease and skin cancer. She has the sister with breast cancer. ALLERGIES: She has no known drug allergies. She is allergic to BEE STINGS and LACTOSE. MEDICATIONS: At home include spironolactone, Silvadene, Seroquel, Pramipexole, potassium, phentermine, Lamictal, Lexapro, Klonopin, Keflex, Celebrex, Coreg, Wellbutrin, Bumex, aspirin. She tells me she was taking Bactrim as well and using Silvadene to the leg. REVIEW OF SYSTEMS: As per HPI. PHYSICAL EXAMINATION: General: She is awake and alert. Vital Signs: Temperature is 97.6, pulse of 88, blood pressure 108/47, respiratory rate is 20. HEENT: She is normocephalic. Her eyes are anicteric. Neck: Her neck is supple. Lungs: Clear to auscultation. Heart: Regular rate and rhythm. Abdomen: Soft, nontender. Extremities: Both the legs are red. She reports this is her baseline color. She has chronic lymphedema. She has a 2-cm diameter ulcer on the right anterior antoine with a yellow fibrinous base. There is no drainage. The surrounding leg is the same redness as her other leg. Her white count is 6.9, hemoglobin 12.4, platelets are 208, sedimentation rate is 30. BUN 28, creatinine 1.2. CRP is 1. No cultures have been sent. She did have x-rays of the leg of the tibia-fibula on the right that are unremarkable. There was some arthritis of the knee, but otherwise, no other changes. She had a chest x-ray done that showed well-expanded lungs, prior kyphoplasty, and a Lap-Band. She had a duplex of the legs done that showed no evidence of right lower extremity DVT. In summary, this is a 63-year-old woman with a nonhealing ulcer most likely secondary to her lymphedema. I would continue her antibiotics for now. Vascular Surgery will see her. I suspect she should wrap her legs instead of using the pump in order for the ulcer to heal. I discussed the patient with Dr. Watkins who will see her later today. The patient does report she had drainage yesterday, but it is completely dry now, so we will have to treat her empirically and make further decisions based on this. AYUSH MAY M.D. [id number]
--- NOTE | 2019-01-14 14:02 | PN ---
Teaching Attending Note Name of Resident: Rosa Guerra ATTENDING PHYSICIAN STATEMENT I saw and evaluated the patient. I reviewed the resident's note and discussed the case with the resident. I agree with the resident's findings and plan as documented. SUBJECTIVE: No fever or chills. No GOMEZ . pain in R leg at wound site. no CP or SOB . reports yellowish serousy drainage form wound. OBJECTIVE: NAD , pleasant. CV: RRR . no mRG Lungs: CTAB Ext : non pitting edema on legs . R antoine with 2x2 cm ulcer with no drainage. small area of dark brown discoloration in one corner. surrounding erythema with increased warmth ASSESSMENT AND PLAN: 63 y/o lady with h/o lymphedema, HTN, back pain and PArkinson's disease who presented with nonhealing ulcer on R antoine 1- R antoine infected ulcer with surrounding cellulitis: - appreciate ID help. cont zosyn - seen by Sx , YO wraps and leg elevation - apply xeroform to wound before YO wraps . - bacitracin daily 2- h/o HTN : - cont home meds coreg and spironolactone 3- deperession : cont meds 4- DVT PX: heparin sq
--- NOTE | 2019-01-14 14:02 | EKG ---
Test Reason : Blood Pressure : / mmHG Vent. Rate : 089 BPM Atrial Rate : 089 BPM P-R Int : 144 ms QRS Dur : 074 ms QT Int : 360 ms P-R-T Axes : 058 013 032 degrees QTc Int : 438 ms NORMAL SINUS RHYTHM NORMAL ECG WHEN COMPARED WITH ECG OF 20-JAN-2017 18:29, NO SIGNIFICANT CHANGE WAS FOUND Confirmed by JIMI SANCHEZ MD ([id number]) on 01/14/2019 2:01:37 PM Referred By: Confirmed By:JIMI SANCHEZ MD
[2019-01-14] MEDS: BACITRACIN 15 GM TUBE TOPICAL OINTMENT TP SCH (15:15)
--- NOTE | 2019-01-14 17:50 | PN ---
Physical Exam: SUBJECTIVE: Patient seen and examined. Pt is comfortable and in no acute distress OBJECTIVE: Vital Signs Period Temp Pulse Resp BP Sys/Moraes Pulse Ox Last 24 Hr 97.6 F-98.5 F 78-102 16-20 107-144/47-81 96-100 GENERAL: The patient is awake, alert, and fully oriented, in no acute distress. HEAD: Normal with no signs of trauma. LUNGS: Breath sounds equal, clear to auscultation bilaterally, no wheezes, no crackles, no accessory muscle use. HEART: Regular rate and rhythm, S1, S2 without murmur, rub or gallop. ABDOMEN: Soft, nontender, nondistended, normoactive bowel sounds, no guarding, no rebound, no hepatosplenomegaly, no masses. EXTREMITIES: 2+ pulses, warm, well-perfused, chronic lymphedema with stasis skin changes SKIN: Warm, dry, normal turgor, right antoine ulcer with erythema and tenderness noted Laboratory Results - last 24 hr 01/13/19 01/13/19 01/14/19 21:06 21:06 06:43 WBC 6.8 6.9 RBC 4.16 3.79 Hgb 13.6 12.4 Hct 40.1 36.5 MCV 96.2 H 96.4 H MCH 32.7 32.9 MCHC 34.0 34.1 RDW 14.0 14.2 Plt Count 222 208 MPV 7.2 L 7.8 Absolute Neuts (auto) 3.9 3.4 Neutrophils % 57.1 49.7 Lymphocytes % 25.0 31.8 D Monocytes % 9.8 11.3 H Eosinophils % 6.6 H 6.1 H Basophils % 1.5 1.1 Nucleated RBC % 0 0 ESR Sodium 139 Potassium 4.4 Chloride 104 Carbon Dioxide 28 Anion Gap 7 L BUN 22.9 H Creatinine 1.3 Est GFR (CKD-EPI)AfAm 50.92 Est GFR (CKD-EPI)NonAf 43.93 Random Glucose 75 Calcium 9.1 Phosphorus Magnesium Total Bilirubin 0.3 AST 32 ALT 36 Alkaline Phosphatase 102 C-Reactive Protein Total Protein 7.2 Albumin 4.0 01/14/19 01/14/19 01/14/19 06:43 06:43 06:43 WBC RBC Hgb Hct MCV MCH MCHC RDW Plt Count MPV Absolute Neuts (auto) Neutrophils % Lymphocytes % Monocytes % Eosinophils % Basophils % Nucleated RBC % ESR 30 Sodium 140 Potassium 3.7 Chloride 102 Carbon Dioxide 29 Anion Gap 9 BUN 28.9 H Creatinine 1.2 Est GFR (CKD-EPI)AfAm 56.09 Est GFR (CKD-EPI)NonAf 48.40 Random Glucose 101 Calcium 9.0 Phosphorus 4.0 Magnesium 2.7 H Total Bilirubin AST ALT Alkaline Phosphatase C-Reactive Protein 1.0 H Total Protein Albumin Active Medications Generic Name Dose Route Start Last Admin Trade Name Geovani PRN Reason Stop Dose Admin Aspirin 81 mg 01/14/19 10:00 01/14/19 09:07 Asa - PO 81 mg DAILY SHON Administration Bacitracin 1 applic 01/14/19 13:30 01/14/19 15:15 Bacitracin - TP 1 applic DAILY SHON Administration Bumetanide 1 mg 01/14/19 08:00 01/14/19 15:15 Bumex - PO 1 mg BIDLASIX SHON Administration Bupropion HCl 300 mg 01/14/19 10:00 01/14/19 09:07 Wellbutrin Xl - PO 300 mg DAILY SHON Administration Carvedilol 3.125 mg 01/14/19 10:00 01/14/19 09:07 Coreg - PO 3.125 mg BID SHON Administration Clonazepam 2 mg/ Clonazepam 1. 3.5 mg 01/14/19 22:00 5 mg PO HS SHON Escitalopram Oxalate 20 mg 01/14/19 07:00 01/14/19 08:58 Lexapro - PO 20 mg AM SHON Administration Heparin Sodium (Porcine) 5,000 unit 01/14/19 02:00 01/14/19 09:07 Heparin - SQ 5,000 unit Q8H-IV SHON Administration Piperacillin Sod/Tazobactam 50 mls @ 100 mls/hr 01/14/19 18:00 Sod 3.375 gm/ Dextrose IVPB Q8H-IV SHON Protocol Lamotrigine 300 mg 01/14/19 10:00 01/14/19 09:07 Lamictal - PO 300 mg DAILY SHON Administration Non-Formulary Medication 37.5 mg 01/14/19 10:00 Phentermine Hcl [Phentermine Hcl] PO DAILY SHON Pramipexole Dihydrochloride 0.75 mg 01/14/19 10:00 01/14/19 09:48 Mirapex - PO 0.75 mg BID SHON Administration Quetiapine Fumarate 300 mg 01/14/19 22:00 Seroquel - PO HS SHON Silver Sulfadiazine 1 applic 01/14/19 10:00 01/14/19 09:48 Silvadene - TP 1 applic DAILY SHON Administration Spironolactone 25 mg 01/14/19 10:00 01/14/19 09:07 Aldactone - PO 25 mg DAILY SHON Administration ASSESSMENT/PLAN: 63 y/o lady with h/o lymphedema, HTN, back pain and PArkinson's disease who presented with nonhealing ulcer on R antoine R antoine infected ulcer with surrounding cellulitis: cont zosyn as per ID Xray of right tibia and fibula showed no sign of fracture YO wraps and leg elevation per surgery apply xeroform, silvadene, bacitracin to wound before YO wraps as per wound care HTN : cont home meds coreg and spironolactone Depression : cont meds DVT PX: heparin sq Visit type - Emergency Visit Emergency Visit: Yes ED Registration Date: 01/13/19 Care time: The patient presented to the Emergency Department on the above date and was hospitalized for further evaluation of their emergent condition. - New Patient This patient is new to me today: Yes Date on this admission: 01/14/19 - Critical Care Critical Care patient: No - Discharge Referral Referred to [facility] Med P.C.: No ATTENDING PHYSICIAN STATEMENT I saw and evaluated the patient. I reviewed the resident's note and discussed the case with the resident. I agree with the resident's findings and plan as documented. SUBJECTIVE: OBJECTIVE: ASSESSMENT AND PLAN:
[2019-01-14] MEDS ORDERED: CLONAZEPAM PO SCH (22:00)
[2019-01-14] MEDS ORDERED: clonazePAM 0.5 MG TABLET ONE (22:05)
[2019-01-14] MEDS ORDERED: clonazePAM 2 MG TABLET ONE (22:05)
[2019-01-14] MEDS: QUEtiapine FUMARATE 300 MG TABLET PO SCH (22:48)
[2019-01-14] MEDS: CLONAZEPAM PO SCH (22:50)
[2019-01-15] MEDS: HEPARIN NA (PORCINE) 5,000 UNITS/ML 1ML VIAL SQ SCH ×3 (01:17→17:56)
[2019-01-15] MEDS ORDERED: DEXTROSE 5%-WATER - 50 ML IVPB ONE ×3 (01:19→17:24)
[2019-01-15] MEDS ORDERED: PIPERACILLIN/TAZOBACTAM 3.375 GM VIAL IVPB ONE ×3 (01:19→17:24)
[2019-01-15] MEDS: PIPERACILLIN/TAZOB 3.375 GM 3.375 GM in DEXTROSE 5%-WATER - 50 ML IVPB SCH ×3 (01:55→17:56)
[2019-01-15] MEDS: BUMETANIDE 1 MG TABLET PO SCH ×2 (06:27→14:40)
[2019-01-15] MEDS: ESCITALOPRAM OXALATE 20 MG TABLET (FP) PO SCH (06:27)
[2019-01-15] MEDS ORDERED: PT OWN MED DRAWER 7, Y5N ONE (09:37)
[2019-01-15] MEDS: SPIRONOLACTONE 25 MG TABLET (FP) PO SCH (10:17)
[2019-01-15] MEDS: CARVEDILOL 3.125 MG TABLET (FP) PO SCH ×2 (10:18→22:24)
[2019-01-15] MEDS: lamoTRIgine 100 MG TABLET (FP) PO SCH (10:18)
[2019-01-15] MEDS: ASPIRIN 81 MG CHEWABLE TABLETS PO SCH (10:19)
[2019-01-15] MEDS: PRAMIPEXOLE DIHYDROCHLORIDE 0.25 MG TABLET PO SCH ×2 (10:21→22:25)
[2019-01-15] MEDS: BACITRACIN 15 GM TUBE TOPICAL OINTMENT TP SCH (10:24)
[2019-01-15] MEDS: SILVER SULFADIAZINE 1% TOP CREAM 50 GM JAR TP SCH (10:24)
[2019-01-15 12:32] LABS: BLOOD UREA NITROGEN 28.3 mg/dL (7-18); CALCIUM 8.7 mg/dL (8.5-10.1); CREATININE 1.1 mg/dL (0.55-1.3); POTASSIUM 4.1 mmol/L (3.5-5.1)
[2019-01-15] MEDS ORDERED: NYSTATIN POWDER 100,000 UNITS/GM - 15 GM TOPICAL POWDER TP SCH (12:45)
--- NOTE | 2019-01-15 13:42 | PN ---
Teaching Attending Note Name of Resident: Hector Shipley ATTENDING PHYSICIAN STATEMENT I saw and evaluated the patient. I reviewed the resident's note and discussed the case with the resident. I agree with the resident's findings and plan as documented. SUBJECTIVE: no apin , no fever or chills. itchy in groin area OBJECTIVE: NAD, pleasant. CV: RRR. no mRG Lungs: CTAB Ext : non pitting edema on legs . R antoine with 2x2 cm ulcer with no drainage. small area of dark brown discoloration in one corner. surrounding discoloration with improved warmth ASSESSMENT AND PLAN: 63 y/o lady with h/o lymphedema, HTN, back pain and PArkinson's disease who presented with nonhealing ulcer on R antoine 1- R antoine infected ulcer with surrounding cellulitis: - cont zosyn - cont wound care and ACAE wraps 2- H/o HTN : - cont home meds coreg and spironolactone 3- Deperession : cont meds 4- DVT PX: heparin sq
[2019-01-15] MEDS: LACTOBACILLUS ACIDOPHILUS 1 TABLET PO SCH (14:38)
[2019-01-15] MEDS ORDERED: clonazePAM 2 MG TABLET ONE (21:35)
[2019-01-15] MEDS ORDERED: clonazePAM 0.5 MG TABLET ONE (21:35)
[2019-01-15] MEDS: NYSTATIN POWDER 100,000 UNITS/GM - 15 GM TOPICAL POWDER TP SCH (22:23)
[2019-01-15] MEDS: QUEtiapine FUMARATE 300 MG TABLET PO SCH (22:24)
[2019-01-15] MEDS: CLONAZEPAM PO SCH (22:25)
--- NOTE | 2019-01-16 00:11 | PN ---
Physical Exam: SUBJECTIVE: Patient seen and examined OBJECTIVE: Vital Signs Period Temp Pulse Resp BP Sys/Moraes Pulse Ox Last 24 Hr 97.6 F-98.4 F 85-98 18-20 104-133/57-74 97 GENERAL: The patient is awake, alert, and fully oriented, in no acute distress. HEAD: Normal with no signs of trauma. EYES: PERRL, extraocular movements intact, sclera anicteric, conjunctiva clear. No ptosis. ENT: Ears normal, nares patent, oropharynx clear without exudates, moist mucous membranes. NECK: Trachea midline, full range of motion, supple. LUNGS: Breath sounds equal, clear to auscultation bilaterally, no wheezes, no crackles, no accessory muscle use. HEART: Regular rate and rhythm, S1, S2 without murmur, rub or gallop. ABDOMEN: Soft, nontender, nondistended, normoactive bowel sounds, no guarding, no rebound, no hepatosplenomegaly, no masses. EXTREMITIES: 2+ pulses, warm, well-perfused, no edema. NEUROLOGICAL: Cranial nerves II through XII grossly intact. Normal speech, gait not observed. PSYCH: Normal mood, normal affect. SKIN: Warm, dry, normal turgor, no rashes or lesions noted Laboratory Results - last 24 hr 01/15/19 11:35 Sodium 140 Potassium 4.1 Chloride 100 Carbon Dioxide 30 Anion Gap 10 BUN 28.3 H Creatinine 1.1 Est GFR (CKD-EPI)AfAm 62.31 Est GFR (CKD-EPI)NonAf 53.76 Random Glucose 67 L Calcium 8.7 Active Medications Generic Name Dose Route Start Last Admin Trade Name Geovani PRN Reason Stop Dose Admin Aspirin 81 mg 01/14/19 10:00 01/15/19 10:19 Asa - PO 81 mg DAILY SHON Administration Bacitracin 1 applic 01/14/19 13:30 01/15/19 10:24 Bacitracin - TP 1 applic DAILY SHON Administration Bumetanide 1 mg 01/14/19 08:00 01/15/19 14:40 Bumex - PO 1 mg BIDLASIX SHON Administration Bupropion HCl 300 mg 01/14/19 10:00 01/15/19 10:17 Wellbutrin Xl - PO 300 mg DAILY SHON Administration Carvedilol 3.125 mg 01/14/19 10:00 01/15/19 22:24 Coreg - PO 3.125 mg BID SHON Administration Clonazepam 2 mg/ Clonazepam 1. 3.5 mg 01/14/19 22:00 01/15/19 22:25 5 mg PO 1 mg HS SHON Administration Escitalopram Oxalate 20 mg 01/14/19 07:00 01/15/19 06:27 Lexapro - PO 20 mg AM SHON Administration Heparin Sodium (Porcine) 5,000 unit 01/14/19 02:00 01/15/19 17:56 Heparin - SQ 5,000 unit Q8H-IV SHON Administration Piperacillin Sod/Tazobactam 50 mls @ 100 mls/hr 01/14/19 18:00 01/15/19 17:56 Sod 3.375 gm/ Dextrose IVPB 100 mls/hr Q8H-IV SHON Administration Protocol Lactobacillus Acidophilus 1 tab 01/15/19 12:45 01/15/19 14:38 Bacid - PO 1 tab DAILY SHON Administration Lamotrigine 300 mg 01/14/19 10:00 01/15/19 10:18 Lamictal - PO 300 mg DAILY SHON Administration Non-Formulary Medication 37.5 mg 01/14/19 10:00 Phentermine Hcl [Phentermine Hcl] PO DAILY SHON Nystatin 1 applic 01/15/19 13:43 01/15/19 22:23 Nystop Powder - TP 1 applic DAILY SHON Administration Pramipexole Dihydrochloride 0.75 mg 01/14/19 10:00 01/15/19 22:25 Mirapex - PO 0.75 mg BID SHON Administration Quetiapine Fumarate 300 mg 01/14/19 22:00 01/15/19 22:24 Seroquel - PO 300 mg HS SHON Administration Silver Sulfadiazine 1 applic 01/14/19 10:00 01/15/19 10:24 Silvadene - TP Not Given DAILY SHON Spironolactone 25 mg 01/14/19 10:00 01/15/19 10:17 Aldactone - PO 25 mg DAILY SHON Administration ASSESSMENT/PLAN: ATTENDING PHYSICIAN STATEMENT I saw and evaluated the patient. I reviewed the resident's note and discussed the case with the resident. I agree with the resident's findings and plan as documented. SUBJECTIVE: OBJECTIVE: ASSESSMENT AND PLAN:
[2019-01-16] MEDS ORDERED: PIPERACILLIN/TAZOBACTAM 3.375 GM VIAL IVPB ONE ×3 (02:07→17:30)
[2019-01-16] MEDS ORDERED: DEXTROSE 5%-WATER - 50 ML IVPB ONE ×3 (02:07→17:30)
[2019-01-16] MEDS: PIPERACILLIN/TAZOB 3.375 GM 3.375 GM in DEXTROSE 5%-WATER - 50 ML IVPB SCH ×3 (02:26→18:07)
[2019-01-16] MEDS: HEPARIN NA (PORCINE) 5,000 UNITS/ML 1ML VIAL SQ SCH ×3 (02:27→18:08)
[2019-01-16] MEDS: BUMETANIDE 1 MG TABLET PO SCH ×2 (06:24→15:00)
[2019-01-16] MEDS: ESCITALOPRAM OXALATE 20 MG TABLET (FP) PO SCH (06:24)
[2019-01-16] MEDS: lamoTRIgine 100 MG TABLET (FP) PO SCH (09:14)
[2019-01-16] MEDS: SPIRONOLACTONE 25 MG TABLET (FP) PO SCH (09:15)
[2019-01-16] MEDS: ASPIRIN 81 MG CHEWABLE TABLETS PO SCH (09:15)
[2019-01-16] MEDS: CARVEDILOL 3.125 MG TABLET (FP) PO SCH ×2 (09:15→21:22)
[2019-01-16] MEDS: NYSTATIN POWDER 100,000 UNITS/GM - 15 GM TOPICAL POWDER TP SCH (09:16)
[2019-01-16] MEDS: LACTOBACILLUS ACIDOPHILUS 1 TABLET PO SCH (09:16)
[2019-01-16] MEDS: BACITRACIN 15 GM TUBE TOPICAL OINTMENT TP SCH (09:17)
[2019-01-16] MEDS: SILVER SULFADIAZINE 1% TOP CREAM 50 GM JAR TP SCH (09:17)
[2019-01-16] MEDS: PRAMIPEXOLE DIHYDROCHLORIDE 0.25 MG TABLET PO SCH ×2 (09:18→21:21)
[2019-01-16 10:17] LABS: BASO % 1.3 % (0-2.0); EOS % 6.5 % (0-4.5); HEMATOCRIT 38.2 % (32.4-45.2); HEMOGLOBIN 12.9 GM/dL (10.7-15.3); LYMPH % 42.1 % (8-40); MCH 33.1 pg (25.7-33.7); MCHC 33.9 g/dl (32.0-36.0); MEAN CELL VOLUME 97.8 fl (80-96); MEAN PLT VOLUME 7.4 fl (7.5-11.1); MONO % 9.1 % (3.8-10.2); PLATELET COUNT 220 K/MM3 (134-434); RDW 13.9 % (11.6-15.6); WHITE BLOOD COUNT 5.9 K/mm3 (4.0-10.0)
[2019-01-16 10:41] LABS: ALBUMIN 3.7 g/dl (3.4-5.0); BILIRUBIN,TOTAL 0.2 mg/dL (0.2-1); BLOOD UREA NITROGEN 29.8 mg/dL (7-18); CALCIUM 8.5 mg/dL (8.5-10.1); CREATININE 1.2 mg/dL (0.55-1.3); MAGNESIUM 2.6 mg/dL (1.8-2.4); PHOSPHOROUS 4.2 mg/dL (2.5-4.9); TOT PROT 7.1 g/dl (6.4-8.2)
--- NOTE | 2019-01-16 12:26 | PN ---
Progress Note (short form) - Note Progress Note: no complaints Vital Signs Period Temp Pulse Resp BP Sys/Moraes Pulse Ox Last 24 Hr 97.9 F-98.3 F 85-99 18-20 104-133/57-74 97 cor-rrr lungs clear dressings removed, much less edema of the legs, the ulcer is clean based- no drainage no fibrinous exudate less edema, less erythema CBC, BMP 01/16/19 09:43 01/16/19 09:43 na/p nonhealing ulcer secondary to her lymphedema improving can witch to augmentin 875 bid for 7 days in am continue present wound care with bacitracin and beni wraps wound care f/u d/w hospitalist Problem List - Problems (1) Nonhealing ulcer of right lower extremity Code(s): L97.919 - NON-PRS CHRONIC ULC UNSP PRT OF R LOW LEG W UNSP SEVERITY (2) Lymphedema Code(s): I89.0 - LYMPHEDEMA, NOT ELSEWHERE CLASSIFIED
[2019-01-16] MEDS ORDERED: PT OWN MED DRAWER 7, Y5N ONE (13:17)
--- NOTE | 2019-01-16 15:30 | PN ---
Progress Note (short form) - Note Progress Note: Subjective: no fever or chills. No GOMEZ. no pain in her leg. feels better Objective: Vital Signs: Last Vital Signs Temp Pulse Resp BP Pulse Ox 97.9 F 99 H 18 119/70 97 01/16/19 09:31 01/16/19 09:31 01/16/19 09:31 01/16/19 09:31 01/15/19 21:00 Laboratory Results - last 24 hr 01/16/19 01/16/19 09:43 09:43 WBC 5.9 RBC 3.90 Hgb 12.9 Hct 38.2 MCV 97.8 H MCH 33.1 MCHC 33.9 RDW 13.9 Plt Count 220 MPV 7.4 L Absolute Neuts (auto) 2.4 Neutrophils % 41.0 L Lymphocytes % 42.1 H D Monocytes % 9.1 Eosinophils % 6.5 H Basophils % 1.3 Nucleated RBC % 0 Sodium 139 Potassium 4.0 Chloride 99 Carbon Dioxide 33 H Anion Gap 8 BUN 29.8 H Creatinine 1.2 Est GFR (CKD-EPI)AfAm 56.09 Est GFR (CKD-EPI)NonAf 48.40 Random Glucose 146 H Calcium 8.5 Phosphorus 4.2 Magnesium 2.6 H Total Bilirubin 0.2 AST 23 ALT 32 Alkaline Phosphatase 94 Total Protein 7.1 Albumin 3.7 Physical Exam: NAD, pleasant. CV: RRR. no mRG Lungs: CTAB Ext: non pitting edema on legs . R antoine with 2x2 cm ulcer with no drainage. with a clean base . surrounding discoloration with normal warmth ASSESSMENT AND PLAN: 63 y/o lady with h/o lymphedema, HTN, back pain and Parkinson's disease who presented with non healing ulcer on R antoine 1- R antoine infected ulcer with surrounding cellulitis: - cont zosyn . will switch to augmentin tomorrow x 7 days - cont wound care and ACAE wraps - refer to wound care as outpt . prefers phelbs 2- H/o HTN: - cont home meds coreg and spironolactone 3- Deperession: cont meds 4- DVT PX: heparin sq dc tomorrow Visit type - Emergency Visit Emergency Visit: Yes ED Registration Date: 01/13/19 Care time: The patient presented to the Emergency Department on the above date and was hospitalized for further evaluation of their emergent condition. - New Patient This patient is new to me today: No - Critical Care Critical Care patient: No - Discharge Referral Referred to [facility] Med P.C.: No
[2019-01-16] MEDS ORDERED: clonazePAM 2 MG TABLET ONE (21:10)
[2019-01-16] MEDS ORDERED: clonazePAM 0.5 MG TABLET ONE (21:10)
[2019-01-16] MEDS: CLONAZEPAM PO SCH (21:19)
[2019-01-16] MEDS: QUEtiapine FUMARATE 300 MG TABLET PO SCH (21:23)
[2019-01-17] MEDS ORDERED: PIPERACILLIN/TAZOBACTAM 3.375 GM VIAL IVPB ONE ×2 (01:22→09:10)
[2019-01-17] MEDS ORDERED: DEXTROSE 5%-WATER - 50 ML IVPB ONE ×2 (01:22→09:11)
[2019-01-17] MEDS: HEPARIN NA (PORCINE) 5,000 UNITS/ML 1ML VIAL SQ SCH ×2 (01:47→09:34)
[2019-01-17] MEDS: PIPERACILLIN/TAZOB 3.375 GM 3.375 GM in DEXTROSE 5%-WATER - 50 ML IVPB SCH ×2 (01:47→09:36)
[2019-01-17] MEDS: ESCITALOPRAM OXALATE 20 MG TABLET (FP) PO SCH (06:16)
[2019-01-17] MEDS: BUMETANIDE 1 MG TABLET PO SCH (06:16)
[2019-01-17] MEDS: SPIRONOLACTONE 25 MG TABLET (FP) PO SCH (09:33)
[2019-01-17] MEDS: ASPIRIN 81 MG CHEWABLE TABLETS PO SCH (09:33)
[2019-01-17] MEDS: LACTOBACILLUS ACIDOPHILUS 1 TABLET PO SCH (09:33)
[2019-01-17] MEDS: BACITRACIN 15 GM TUBE TOPICAL OINTMENT TP SCH (09:34)
[2019-01-17] MEDS: lamoTRIgine 100 MG TABLET (FP) PO SCH (09:34)
[2019-01-17] MEDS: CARVEDILOL 3.125 MG TABLET (FP) PO SCH (09:34)
[2019-01-17] MEDS: PRAMIPEXOLE DIHYDROCHLORIDE 0.25 MG TABLET PO SCH (09:35)
[2019-01-17] MEDS: SILVER SULFADIAZINE 1% TOP CREAM 50 GM JAR TP SCH (09:39)
[2019-01-17] MEDS: NYSTATIN POWDER 100,000 UNITS/GM - 15 GM TOPICAL POWDER TP SCH (09:39)
[2019-01-17 09:57] VITALS: BP 129/78; PULSE 96; TEMP 98
--- NOTE | 2019-01-17 17:09 | PN ---
Teaching Attending Note Name of Resident: Rosa Guerra ATTENDING PHYSICIAN STATEMENT I saw and evaluated the patient. I reviewed the resident's note and discussed the case with the resident. I agree with the resident's findings and plan as documented. SUBJECTIVE: no pain , has no complaints OBJECTIVE: NAD, pleasant. CV: RRR. no mRG Lungs: CTAB Ext: non pitting edema on legs. R antoine with 2x1 cm ulcer with no drainage. with a clean base . surrounding discoloration with normal warmth ASSESSMENT AND PLAN: 63 y/o lady with h/o lymphedema, HTN, back pain and Parkinson's disease who presented with non healing ulcer on R antoine 1- R antoine infected ulcer with surrounding cellulitis: - Switch to augmentin x 7 days - cont bacitracin and ACAE wraps - refer to wound care as outpt. she will initially follow with our wound care center 2- H/o HTN: - cont home meds coreg and spironolactone and beumex 3- Deperession: cont meds Dc home
--- NOTE | 2019-01-17 18:43 | DS ---
Physical Exam: SUBJECTIVE: Patient seen and examined. Pt is asymptomatic and in no acute distress. OBJECTIVE: Vital Signs Period Temp Pulse Resp BP Sys/Moraes Pulse Ox Last 24 Hr 97.7 F-98.0 F 86-98 17-18 115-148/69-89 97-97 PHYSICAL EXAM GENERAL: The patient is awake, alert, and fully oriented, in no acute distress. HEAD: Normal with no signs of trauma. EYES: PERRL, extraocular movements intact, sclera anicteric, conjunctiva clear. ENT: Ears normal, nares patent, oropharynx clear without exudates, moist mucous membranes. LUNGS: Breath sounds equal, clear to auscultation bilaterally, no wheezes, no crackles, no accessory muscle use. HEART: Regular rate and rhythm, S1, S2 without murmur, rub or gallop. ABDOMEN: Soft, nontender, nondistended, normoactive bowel sounds, no guarding, no rebound, no hepatosplenomegaly, no masses. EXTREMITIES: 2+ pulses, warm, well-perfused, chronic lymphedema with stasis skin changes SKIN: Warm, dry, normal turgor, right antoine ulcer with erythema noted LABS CBC,CMP WBC 5.9 K/mm3 (4.0-10.0) 01/16/19 09:43 RBC 3.90 M/mm3 (3.60-5.2) 01/16/19 09:43 Hgb 12.9 GM/dL (10.7-15.3) 01/16/19 09:43 Hct 38.2 % (32.4-45.2) 01/16/19 09:43 MCV 97.8 fl (80-96) H 01/16/19 09:43 MCH 33.1 pg (25.7-33.7) 01/16/19 09:43 MCHC 33.9 g/dl (32.0-36.0) 01/16/19 09:43 RDW 13.9 % (11.6-15.6) 01/16/19 09:43 Plt Count 220 K/MM3 (134-434) 01/16/19 09:43 MPV 7.4 fl (7.5-11.1) L 01/16/19 09:43 Absolute Neuts (auto) 2.4 K/mm3 (1.5-8.0) 01/16/19 09:43 Neutrophils % 41.0 % (42.8-82.8) L 01/16/19 09:43 Lymphocytes % 42.1 % (8-40) H D 01/16/19 09:43 Monocytes % 9.1 % (3.8-10.2) 01/16/19 09:43 Eosinophils % 6.5 % (0-4.5) H 01/16/19 09:43 Basophils % 1.3 % (0-2.0) 01/16/19 09:43 Nucleated RBC % 0 % (0-0) 01/16/19 09:43 ESR 30 mm/hr (0-30) 01/14/19 06:43 Sodium 139 mmol/L (136-145) 01/16/19 09:43 Potassium 4.0 mmol/L (3.5-5.1) 01/16/19 09:43 Chloride 99 mmol/L (98-107) 01/16/19 09:43 Carbon Dioxide 33 mmol/L (21-32) H 01/16/19 09:43 Anion Gap 8 MMOL/L (8-16) 01/16/19 09:43 BUN 29.8 mg/dL (7-18) H 01/16/19 09:43 Creatinine 1.2 mg/dL (0.55-1.3) 01/16/19 09:43 Est GFR (CKD-EPI)AfAm 56.09 01/16/19 09:43 Est GFR (CKD-EPI)NonAf 48.40 01/16/19 09:43 Random Glucose 146 mg/dL (74-106) H 01/16/19 09:43 Calcium 8.5 mg/dL (8.5-10.1) 01/16/19 09:43 Phosphorus 4.2 mg/dL (2.5-4.9) 01/16/19 09:43 Magnesium 2.6 mg/dL (1.8-2.4) H 01/16/19 09:43 Total Bilirubin 0.2 mg/dL (0.2-1) 01/16/19 09:43 AST 23 U/L (15-37) 01/16/19 09:43 ALT 32 U/L (13-61) 01/16/19 09:43 Alkaline Phosphatase 94 U/L (45-117) 01/16/19 09:43 C-Reactive Protein 1.0 MG/DL (0.00-0.3) H 01/14/19 06:43 Total Protein 7.1 g/dl (6.4-8.2) 01/16/19 09:43 Albumin 3.7 g/dl (3.4-5.0) 01/16/19 09:43 Tibial Xray 01/14/19 2 views of the right tibia and fibula reveal no sign of fracture or subluxation and no sign of blastic or lytic changes. There are arthritic knee findings there is no sign of soft tissue air foreign body. If one is concerned about osteomyelitis, three-phase bone scan or MR may be of help. Chest Xray 01/14/19 2 views of the chest reveal scoliosis with degenerative changes and previous kyphoplasty procedures , normal heart, unfolded aorta and normal patience. The lungs are well-expanded. There is fluid in the horizontal fissure. There is some scarring or atelectasis at the bases. There is a lap band device in the left upper quadrant. The angles are sharp and the soft tissues are intact. Since the prior study of 01/20/2017, there is not much change. Correlation recommended vascular study LE 01/13/19 No sonographic evidence of right lower extremity DVT. Mild subcutaneous edema seen in the popliteal region and catheter HOSPITAL COURSE: Date of Admission:01/13/19 63 y/o F with a PMHx of b/l LE lymphedema, HTN, peripheral venous insufficiency , Parkinsons disease, chronic low back pain, bipolar disorder, and skin cancer presented to the ED referred by her PCP due to a worsening non-healing right leg wound that she sustained while swimming in her pool and was found to be infected with cellulitis and was subsequently started on IV Vanc and Zosyn in the ED. An X-ray was done which did not reveal any periosteal elevation or bony abnormalities. Pt also received a vascular duplex of the right LE which showed no evidence of DVT. Pts ESR was wnl so MRI was not indicated. Pt was started on IV antibiotics and discharged on PO augmentin for an additional 7 days. Pt was instructed to continue wound care and YO wraps and was referred to wound care for outpatient follow up. Date of Discharge: 01/17/19 Minutes to complete discharge: 35 Discharge Summary Reason For Visit: WOUND CELLULITIS,LYMPHEDMA Condition: Stable - Instructions Diet, Activity, Other Instructions: You came to the emergency room with complaints of right lower extremity cellulitis after failing outpatient treatment. We have been treating you with IV antibiotics and your symptoms have improved. You were seen by the supplier quality specialist and you will be following up with them in the clinic. Your symptoms improved and you were stable to be discharged home. Please resume all of your home medications in addition Please take the antibotic Augmentin 875mg twice a day for a total of 7 days (01/17 -01/23) Please follow up with Dr. Garcia within one week Please follow up with Dr. Watkins in the wound care clinic Please apply bacitracin to your wound daily in addition to the xeroform and yo bandage *if you begin to experience worsening pains, chest pains, shortness of breath, fevers please return to the emergency room immediately Referrals: Demian Watkins MD [Non Staff, Medical] - 1 Week Hector Garcia MD [Primary Care Provider] - 1 Week Disposition: VNS/HOME HEALTH CARE - Home Medications Comprehensive Discharge Medication List: Ambulatory Orders Bumetanide 2 mg PO BID 05/28/15 Bupropion HCl [Wellbutrin Xl -] 300 mg PO DAILY 05/28/15 Carvedilol [Coreg] 3.125 mg PO BID 05/28/15 Clonazepam [Klonopin] 1 mg PO HS 05/28/15 Lamotrigine [Lamictal] 300 mg PO DAILY 05/28/15 Potassium Chloride [K-Tab] 10 meq PO BID 05/28/15 Spironolactone 25 mg PO DAILY 05/28/15 Pramipexole Di-HCl [Pramipexole Dihydrochloride] 0.75 mg PO BID 01/23/17 Aspirin [ASA -] 1 tab PO DAILY 03/06/17 Escitalopram Oxalate [Lexapro -] 20 mg PO AM 01/14/19 Phentermine HCl 37.5 mg PO DAILY 01/14/19 Quetiapine Fumarate [Seroquel] 300 mg PO HS 01/14/19 Amox-Tr/K Cl [Augmentin - 875Mg Tablet] 1 tab PO BID #14 tablet 01/17/19 Bacitracin - [Bacitracin Topical Ointment -] 1 applic TP DAILY #2 tube 01/17/19 Bismuth Tribromoph/Petrolatum [Xeroform 5"X9" Gauze Strip] 1 each TP DAILY #10 bandage 01/17/19 Lactobacillus Acidophilus [Bacid -] 1 tab PO DAILY #14 tab 01/17/19 Problem List - Problems (1) Cellulitis Code(s): L03.90 - CELLULITIS, UNSPECIFIED Qualifiers: (2) Nonhealing ulcer of right lower extremity Code(s): L97.919 - NON-PRS CHRONIC ULC UNSP PRT OF R LOW LEG W UNSP SEVERITY This patient is new to me today: Yes Date on this admission: 01/17/19 Emergency Visit: Yes ED Registration Date: 01/13/19 Care time: The patient presented to the Emergency Department on the above date and was hospitalized for further evaluation of their emergent condition. Critical Care patient: No - Discharge Referral Referred to [facility] Med P.C.: No ATTENDING PHYSICIAN STATEMENT I saw and evaluated the patient. I reviewed the resident's note and discussed the case with the resident. I agree with the resident's findings and plan as documented. SUBJECTIVE: OBJECTIVE: ASSESSMENT AND PLAN:
== END 2019-01-17 11:37 | disposition home health service (06) | DRG 593 ==
LOC: JER 19:32 → JERBED 22:14 → J5S 01-14 01:20
PROVIDERS: ADMIT Specialist; ATTEND Internal Medicine
DX: L97.819 Non-pressure chronic ulcer of other part of right lower leg with unspecified severity (principal); L03.115 Cellulitis of right lower limb; G20 Parkinson's disease; I89.0 Lymphedema, not elsewhere classified; I10 Essential (primary) hypertension; F31.9 Bipolar disorder, unspecified; F17.210 Nicotine dependence, cigarettes, uncomplicated; I87.8 Other specified disorders of veins; M54.5 Low back pain; I73.9 Peripheral vascular disease, unspecified; Z96.643 Presence of artificial hip joint, bilateral
CPT/HCPCS: 36415; 71046-TC-FY; 73590-TC-RT-FY; 80048; 80053; 83735; 84100; 85025; 85651; 86140; 93005; 93010; 93971-TC; 97116-GP; 97161-GP; 99284-25; J1644

== ENCOUNTER 2019-03-15 16:15 | Emergency (ER) | payer OTHER, MEDICARE ==
--- NOTE | 2019-03-15 16:31 | PDOC ---
Attending Attestation - Resident Resident Name: Konrad Diego - ED Attending Attestation I have performed the following: I have examined & evaluated the patient, The case was reviewed & discussed with the resident, I agree w/resident's findings & plan, Exceptions are as noted
[2019-03-15 16:49] VITALS: BP 121/61; PULSE 86; TEMP 98; BMI 36.3
--- NOTE | 2019-03-15 17:27 | PDOC ---
History of Present Illness - General Chief Complaint: Laceration Stated Complaint: rt leg laceration Time Seen by Provider: 03/15/19 16:31 - History of Present Illness Initial Comments: 03/15/19 17:28 Chief complaint: Leg injury HPI: Last evening, the patient bumped her leg, sustaining a laceration. There is persistent oozing because of her severe edema. She was recently treated for cellulitis in January, with hospitalization, IV antibiotics, and home care by a visiting nurse. Review of systems: Denies fever/chills, pain at the site, bleeding. Past medical history: Morbid obesity, severe bilateral leg edema, venous stasis disease, bipolar illness. Social/family history reviewed and noncontributory Physical exam: Alert cheerful and cooperative no acute distress. Cooperative Afebrile, vital signs normal Morbidly obese with bilateral calf edema to the knees 4+. Superficial laceration of the right mid calf, approximately 2 cm in length, flap -like. No excessive warmth, erythema, point tenderness, or purulent discharge. There is weeping of clear fluid because of edema Impression: Superficial laceration, no early signs of infection. Plan: Meticulous cleansing and debridement, rest elevation and wound care. Antibiotics if sign of infection develops. No antibiotics now to avoid developing resistant strains or inciting C. difficile. Past History - Past Medical History Allergies/Adverse Reactions: Allergies Allergy/AdvReac Type Severity Reaction Status Date / Time No Known Drug Allergies Allergy Verified 03/15/19 16:22 lactose AdvReac Verified 03/15/19 16:22 BEE STINGS Allergy Severe Hives Uncoded 03/15/19 16:22 Home Medications: Ambulatory Orders Bumetanide 2 mg PO BID 05/28/15 Bupropion HCl [Wellbutrin Xl -] 300 mg PO DAILY 05/28/15 Carvedilol [Coreg] 3.125 mg PO BID 05/28/15 Clonazepam [Klonopin] 1 mg PO HS 05/28/15 Lamotrigine [Lamictal] 300 mg PO DAILY 05/28/15 Spironolactone 25 mg PO DAILY 05/28/15 Pramipexole Di-HCl [Pramipexole Dihydrochloride] 0.75 mg PO BID 01/23/17 Aspirin [ASA -] 1 tab PO DAILY 10/27/17 Escitalopram Oxalate [Lexapro -] 20 mg PO AM 01/14/19 Phentermine HCl 37.5 mg PO DAILY 01/14/19 Quetiapine Fumarate [Seroquel] 300 mg PO HS 01/14/19 Lactobacillus Acidophilus [Bacid -] 1 tab PO DAILY #14 tab 01/17/19 Anemia: No Asthma: No Cancer: No Cardiac Disorders: Yes (HX OF A LEAKY HEART VALVE REPORTED BY PT) CVA: No COPD: No CHF: No Dementia: No Diabetes: No GI Disorders: No Disorders: No HTN: Yes Hypercholesterolemia: No Liver Disease: No Psychiatric Problems: Yes (bipolar) Seizures: No Thyroid Disease: No - Surgical History Abdominal Surgery: Yes (Lap Band 2010) Appendectomy: No Cardiac Surgery: No Cholecystectomy: No Lung Surgery: No Neurologic Surgery: No Orthopedic Surgery: Yes (RIGHT CTR) - Immunization History Immunization Up to Date: No - Psycho Social/Smoking Cessation Hx Smoking History: Never smoked Have you smoked in the past 12 months: No Number of Cigarettes Smoked Daily: 20 Information on smoking cessation initiated: No 'Breaking Loose' booklet given: 01/20/17 Hx Alcohol Use: No Drug/Substance Use Hx: No Substance Use Type: None Hx Substance Use Treatment: No *Physical Exam - Vital Signs Last Vital Signs Temp Pulse Resp BP Pulse Ox 98 F 86 20 121/61 97 03/15/19 16:16 03/15/19 16:16 03/15/19 16:16 03/15/19 16:16 03/15/19 16:16 Medical Decision Making - Medical Decision Making 03/15/19 17:32 Procedure note: Wound debridement and dressing The surrounding skin was prepped with Betadine, avoiding the wound itself. The wound was thoroughly irrigated with normal saline under pressure, using a small bore needle. This was done under sterile technique Bacitracin was applied, 4 x 4 to absorb transudate, and Blu. Wound care instructions were furnished and the patient was instructed as to close follow- up. Fully ambulatory and in no pain or other distress at discharge. Discharge - Discharge Information Problems reviewed: Yes Clinical Impression/Diagnosis: Leg laceration Qualifiers: Encounter type: initial encounter Laterality: right Qualified Code(s): S81.811A - Laceration without foreign body, right lower leg, initial encounter Condition: Improved Disposition: HOME - Admission No - Follow up/Referral Referrals: Damaso Barboza MD [Staff Physician] - 3 days - Patient Discharge Instructions Patient Printed Discharge Instructions: DI for Avulsion Laceration (Not Requiring Sutures) Additional Instructions: Bedrest, elevation of the legs, brief ambulation periodically. Change dressing as instructed beginning morning. If there is sign of infection, return to ER or see primary physician. It may be beneficial to consult a document design specialist, such as Dr. Barboza. There is a wound care center at [facility] with clinic hours daily. - Post Discharge Activity
== END 2019-03-15 17:42 | disposition home or self-care (01) ==
LOC: FER 16:15
PROC: 0HDKXZZ Extraction of Right Lower Leg Skin, External Approach (ICD-10-PCS; principal; 2019-03-15)
DX: S81.811A Laceration without foreign body, right lower leg, initial encounter (principal); W45.8XXA Other foreign body or object entering through skin, initial encounter; Y93.89 Activity, other specified; Y92.9 Unspecified place or not applicable; I10 Essential (primary) hypertension; F31.9 Bipolar disorder, unspecified; I87.2 Venous insufficiency (chronic) (peripheral); E66.01 Morbid (severe) obesity due to excess calories; Z68.36 Body mass index [BMI] 36.0-36.9, adult; R60.0 Localized edema; Z98.84 Bariatric surgery status; Z91.011 Allergy to milk products; Z79.82 Long term (current) use of aspirin
CPT/HCPCS: 99281-25

== ENCOUNTER 2019-04-07 16:36 | Inpatient (IN) | payer OTHER, MEDICARE ==
--- NOTE | 2019-04-07 17:20 | PDOC ---
History of Present Illness - General Chief Complaint: CVA/TIA Stated Complaint: POSSIBLE STROKE Time Seen by Provider: 04/07/19 17:04 History Source: Patient Exam Limitations: No Limitations - History of Present Illness Initial Comments: Nia Edmonds is a 63 yo F w a pmh of HTN, parkinsons, bilateral LE lymphedema, peripheral venous insufficiency, chronic low back pain, bipolar disorder, skin cancer, and b/l hip replacements who presents to the [facility] bc her called 911 after he believed she was having a stroke. The patient does not remember the details of the episode well but the who is at bedside states that while she was cooking dinner she started slurring her words, the left side of her face became numb and was drooping, her left arm became week, and then the called 911. The episode lasted around 5 minutes according to the and then the patient returned to her normal baseline and all of her symptoms resolved. She states she is supposed to take a baby aspirin every day but she was bad today and did not take her baby aspirin or any of her meds today. The patient also states that her right leg has been swelling more than usual lately. She states that the entire leg is red and she is worried it is infected. It has been draining pus so she has been wrapping it with gauze every day. Denies chest pain, SOB, difficulty breathing, abdominal pain, dysuria, frequency , urgency, new back pain, headache, blurry vision, current - numbness, tingling , weakness, chills PCP: Dr. Garcia PSH: MOHS surgery (excisional skin removal of skin cancer), Cervical plasto- laminectomy (2015), b/l hip replacement (2009), revised in 2010, 2012, Carpal Tunnel Release, Abdominal lap band 2010, Left leg surgery for venous stasis, cyst removal - left 3rd digit distal phalanx Social Hx: smokes 1 PPD, recreational alcohol, medicinal marijuana, denies illicit drug usage Allergies: Lactose, bee stings Fam Hx: Father - Parkinson's, skin cancer. Mother - skin cancer, Alzheimer's dementia. Sister - breast CA Past History - Past Medical History Allergies/Adverse Reactions: Allergies Allergy/AdvReac Type Severity Reaction Status Date / Time No Known Drug Allergies Allergy Verified 03/15/19 16:22 lactose AdvReac Verified 03/15/19 16:22 BEE STINGS Allergy Severe Hives Uncoded 03/15/19 16:22 Home Medications: Ambulatory Orders Bumetanide 2 mg PO BID 05/28/15 Bupropion HCl [Wellbutrin Xl -] 300 mg PO DAILY 05/28/15 Carvedilol [Coreg] 3.125 mg PO BID 05/28/15 Clonazepam [Klonopin] 1 mg PO HS 05/28/15 Lamotrigine [Lamictal] 300 mg PO DAILY 05/28/15 Spironolactone 25 mg PO DAILY 05/28/15 Pramipexole Di-HCl [Pramipexole Dihydrochloride] 0.75 mg PO BID 01/23/17 Aspirin [ASA -] 1 tab PO DAILY 03/06/17 Escitalopram Oxalate [Lexapro -] 20 mg PO AM 01/14/19 Phentermine HCl 37.5 mg PO DAILY 01/14/19 Lactobacillus Acidophilus [Bacid -] 1 tab PO DAILY #14 tab 01/17/19 Oxycodone HCl [Oxycontin] 10 mg PO PRN 04/07/19 Quetiapine Fumarate [Seroquel -] 200 mg PO HS 04/07/19 Anemia: No Asthma: No Cancer: No Cardiac Disorders: Yes (HX OF A LEAKY HEART VALVE REPORTED BY PT) CVA: No COPD: No CHF: No Dementia: No Diabetes: No GI Disorders: No Disorders: No HTN: Yes Hypercholesterolemia: No Liver Disease: No Psychiatric Problems: Yes (BIPOLAR) Seizures: No Thyroid Disease: No Other medical history: Parkinson's - Surgical History Abdominal Surgery: Yes (Lap Band 2010) Appendectomy: No Cardiac Surgery: No Cholecystectomy: No Lung Surgery: No Neurologic Surgery: No Orthopedic Surgery: Yes (RIGHT CTR) - Immunization History Immunization Up to Date: No - Psycho Social/Smoking Cessation Hx Smoking History: Current every day smoker Have you smoked in the past 12 months: Yes Number of Cigarettes Smoked Daily: 20 Information on smoking cessation initiated: Yes 'Breaking Loose' booklet given: 01/20/17 Hx Alcohol Use: No Drug/Substance Use Hx: No Substance Use Type: None Hx Substance Use Treatment: No Review of Systems - Review of Systems Able to Perform ROS?: Yes Comments:: CONSTITUTIONAL: Absent: fever, no chills, no fatigue EYES: Absent: visual changes ENT: Absent: ear pain, no sore throat CARDIOVASCULAR: Absent: chest pain, no palpitations RESPIRATORY: Absent: cough, no SOB GI: Absent: abdominal pain, no nausea, no vomiting, no constipation, no diarrhea GENITOURINARY: Absent: dysuria, no frequency, no hematuria MUSKULOSKELETAL: Present: Back pain, arthralgia Absent: no myalgia SKIN: Present: rash NEURO: Present: headache, focal weakness, unsteady gait Absent: paresthesias, dizziness, seizure, mental status changes, bladder or bowel incontinence *Physical Exam - Vital Signs Last Vital Signs Temp Pulse Resp BP Pulse Ox 98.7 F 112 H 20 149/63 99 04/07/19 16:47 04/07/19 16:47 04/07/19 16:47 04/07/19 16:47 04/07/19 16:47 - Physical Exam Comments: GENERAL: Well-appearing, well-nourished. No apparent distress. HEENT: Normocephalic, atraumatic. PERRL, EOM intact. CARDIOVASCULAR: Tachycardic rate. Normal S1, S2. Regular rhythm. PULMONARY: No evidence of respiratory distress. Lungs clear to auscultation bilaterally. No wheezing, rales or rhonchi. ABDOMEN: Soft, non-distended, non-tender. EXTREMITIES: Limited ROM in lower extremities. Normal ROM in upper extremities. Grossly swollen legs bilaterally with 2+ pitting edema. SKIN: The right leg appears red, swollen, erythematous. Warm, dry. NEUROLOGICAL: Alert, awake, appropriate. Cranial nerves 2-12 intact. No deficits to light touch and temperature in face, upper extremities and lower extremities. No motor deficits in the in face, upper extremities and lower extremities. No pronator drift. Normal speech. NIH Stroke Scale - Last Known Well Date/Time & Onset Date Last Known Well: 04/07/19 Time Last Known Well: 16:00 - Initial Evaluation Level of consciousness: Alert Ask patient the month and their age: Answers both correctly Ask patient to open & close eyes; make fist and let go: Obeys both correctly Best gaze (horizontal eye movement): Normal Visual field testing: No visual field loss Facial paresis (Show teeth/raise eyebrows/close eyes tight): Normal symmetrical movement Motor Function: Left Arm: Normal Motor Function: Right Arm: Normal (extends arm 90 (or 45) degrees for 10 seconds without drift Motor Function: Left Leg: Normal (extends leg 30 degrees for 5 seconds without drift) Motor Function: Right Leg: Normal (extends leg 30 degrees for 5 seconds without drift) Limb Ataxia: No ataxia Sensory(Use pinprick test arms,legs,trunk,face/side to side): Normal Best language (Describe picture, name items, read sentences): No Aphasia Dysarthria (read several words): Normal articulation Extinction and Inattention: No abnormality - Total Score NIH Stroke Scale Score: 0 tPA Exclusion Checklist 0-3hr - Time Elapsed Date last known well: 04/07/19 Time last known well: 16:00 Elaspsed time: Day(s) and 17 Hour(s) and 17 Minutes - Thrombolytic Therapy Candidate Is the patient eligible for Thrombolytic Therapy?: No - Exclusion Criteria 0-3hr SBP greater than 185 or DBP greater than 110mmHg despite tx: No Recent IC/spinal surgery,head trauma or stroke w/in last 3mo: No Hx of previous IC hemorrhage, IC neoplasm, AVM or aneurysm: No Active internal bleeding: No Blding diathesis(low plt ct, inc PTT,INR>1.7 or use of NOAC): No Symptoms suggest subarachnoid hemorrhage: No CT demonstrates multilobar infarct(>1/3 cerebral hemiphere): No Arterial puncture at noncompressible site in previous 7 days: No Blood glucose concentration less than 50mg/dL (2.7mmol/L): No - Relative Exclusion Criteria 0-3h Life expectancy <1yr/severe co-morbid illness/[employer] SUPER[employer]OR on admit: No : No Patient/family refused: No Rapid improvement: Yes Stroke severity too mild: Yes Recent acute MO (w/in previous 3 months): No Seizure at onset with postictal residual neuro impairments: No Major surgery or serious trauma w/in previous 14 days: No Recent GI or hemorrhage (w/in previous 21 days): No - Ineligibility reason(s) Reasons No tPA given: See reason(s) noted above tPA Exclusion checklist 3-4.5h - Time Elapsed Date last known well: 04/07/19 Time last known well: 16:00 Elaspsed time: Day(s) and 17 Hour(s) and 17 Minutes - Thrombolytic Therapy Candidate Is patient eligible for thrombolytic therapy: No - Exclusion Criteria 3-4.5 hr SBP greater than 185 or DBP greater than 110mmHg despite tx: No Recent IC/spinal surgery,head trauma or stroke<3mos.: No Hx IC hemorrhage, IC neoplasm, AV malformation or aneurysm: No Active internal bleeding: No Blding diathesis(low plt ct, inc PTT,INR>1.7 or use of NOAC): No Symptoms suggest subarachnoid hemorrhage: No CT demonstrates multilobar infarct(>1/3 cerebral hemiphere): No Arterial puncture at noncompressible site in previous 7 days: No Blood glucose concentration less than 50mg/dL (2.7mmol/L): No - Relative Exclusion Criteria 3-4.5 hr Life expectancy <1 yr or severe co-morbid illness: No : No Patient/family refused: No Rapid improvement: Yes Stroke severity too mild: Yes Recent acute MO (w/in previous 3 months): No Seizure at onset with postictal residual neuro impairments: No Major surgery or serious trauma w/in previous 14 days: No Recent GI or hemorrhage (w/in previous 21 days): No - Add'l Relative Exclusion 3-4.5 hr Age > 80: No Hx of both diabetes AND prior ischemic stroke: No Taking an oral anticoagulant regardless of INR: No NIHSS >25: No - Ineligibility reason(s) Reasons No tPA given: See reason(s) noted above TIA Risk Factors - ABCD Score Age: Age = or > 60 Blood Pressure: SBP =/> 140 Clinical Features of TIA: Uni wk w/wo speech impair Duration: TIA duration 10-59 min Diabetes: No Total ABCD2 Score (0-7):: 5 Heart Score/ECG Review - ECG Intrepretation Rhythm: Regular Rhythm - [place]: Normal - P and MS Prominent R with upright T in V1 (true posterior MO): No Delta Wave(s) Present: No WPW: No - QRS Poor R Wave Progression: No Q Wave Present: No - ST and T Early Repolarization: No Non Specific ST-T Wave changes: No Flattened T Waves: No Prolonged Q-T Interval: No - ECG Impressions Normal ECG: Yes Non-specific ST Elevation: No Ischemic Changes: No Bradycardia: No Tachycardia: Sinus Torsades jacqueline Pointes: No WPW: No Critical Care Time/MDM Note - Medical Decision Making Note: Nia Edmonds is a 63 yo F w a pmh of HTN, parkinsons, bilateral LE lymphedema, peripheral venous insufficiency, chronic low back pain, bipolar disorder, skin cancer, and b/l hip replacements who presents to the [facility] her called 911 after he believed she was having a stroke. The patient does not remember the details of the episode well but the who is at bedside states that while she was cooking dinner she started slurring her words, the left side of her face became numb and was drooping, her left arm became week, and then the called 911. The episode lasted around 5 minutes according to the and then the patient returned to her normal baseline and all of her symptoms resolved. She states she is supposed to take a baby aspirin every day but she was bad today and did not take her baby aspirin or any of her meds today. - Patient states she has a leaky valve in her heart The patient also states that her right leg has been swelling more than usual lately. She states that the entire leg is red and she is worried it is infected. It has been draining pus so she has been wrapping it with gauze every day. Vital Signs Temp Pulse Resp BP Pulse Ox 98.7 F 112 H 20 149/63 99 04/07/19 16:47 04/07/19 16:47 04/07/19 16:47 04/07/19 16:47 04/07/19 16:47 - tachycardic DDx IBNLT: CVA/TIA, Sepsis/cellulitis, PNA, arrhythmia, ACS/MO, electrolyte/ metabolic disturbance, complex migraine, DVT MDM: The story is most consistent with the patient having experienced a TIA but is now symptom free. She also appears to have a right leg cellulitis. Plan: Labs, Urine, EKG, Head CT, DVT, aspirin, Vanc, neuro consult, Admit to stroke floor Labs: Unremarkable Urine: Unremarkable EKG: See EKG section Head CT: No acute pathology Duplex: No evidence of DVT Neuro Consult - Mohan is patient's neurologist: I have called her office - [phone] and the medical secretary receptionist said the acquisitions librarian doc will give us a call at [phone] - Dr. Harkins returned a call but says she doesn't come visit at this hospital. - Unclear if Dr. patel visits patients here. Patient says Dr. patel has seen her in this hospital in the past. Disposition: Admit to Stroke floor - Patient endorsed to hospitalist and accepted for admission to telemetry Discharge - Discharge Information Problems reviewed: Yes Clinical Impression/Diagnosis: Transient ischemic attack Cerebrovascular accident (CVA) Qualifiers: CVA mechanism: unspecified Qualified Code(s): I63.9 - Cerebral infarction, unspecified Cellulitis Qualifiers: Site of cellulitis: extremity Site of cellulitis of extremity: lower extremity Laterality: left Qualified Code(s): L03.116 - Cellulitis of left lower limb Condition: Stable - Admission Yes - Follow up/Referral - Patient Discharge Instructions - Post Discharge Activity
--- NOTE | 2019-04-07 17:20 | PDOC ---
Attending Attestation - Resident Resident Name: Srikanth Stacy - ED Attending Attestation I have performed the following: I have examined & evaluated the patient, The case was reviewed & discussed with the resident, I agree w/resident's findings & plan, Exceptions are as noted - HPI HPI: 04/07/19 18:49 Ms Edmonds is a 63 yo F w a pmh of HTN, parkinsons, bilateral LE lymphedema, peripheral venous insufficiency, chronic low back pain, bipolar disorder, skin cancer, and b/l hip replacements who presents to the ER because believed she was having a stroke. Pt was just finishing up making chocolate pudding HE noticed that she started slurring her words, the left side of her face began drooping, her left arm became weak Symptoms lasted approximately 5 minutes Has not occured in the past No headache No chest pain Of note, pt has had blurring of her vision, related to worsening of her cataract Also: Patient states that her right leg has been swelling more than usual lately. She recently sustained a laceration of the left antoine, which became infected She is s/p treatment but then developed another laceration of her antoine She states that the entire leg has become erythematous and warm Denies chest pain, SOB, difficulty breathing, abdominal pain, dysuria, frequency , urgency, new back pain, headache, blurry vision, current - numbness, tingling , weakness, chills - Physicial Exam PE: 04/07/19 17:19 GENERAL: The patient is in no acute distress, very pleasant ENT: Ears normal, nares patent, oropharynx clear without exudates. Moist mucous membranes. NECK: Normal range of motion, supple LUNGS: Breath sounds equal, clear to auscultation bilaterally. No wheezes, and no crackles. HEART:Regular rate and rhythm, normal S1 and S2 without murmur, rub or gallop. ABDOMEN: Soft, nontender, normoactive bowel sounds. EXTREMITIES: Limited ROM in lower extremities. Normal ROM in upper extremities. Grossly swollen legs bilaterally with 2+ pitting edema. SKIN: The right leg appears red, swollen, erythematous. Warm, dry. NEUROLOGICAL: Alert, awake, appropriate. Cranial nerves 2-12 intact. No deficits to light touch and temperature in face, upper extremities and lower extremities. No motor deficits in the in face, upper extremities and lower extremities. No pronator drift. Normal speech. 04/07/19 18:54 - Medical Decision Making 04/07/19 18:55 63-year-old female presenting to the emergency department due to strokelike symptoms which have resolved Differential diagnosis includes but is not limited to: TIA CVA Brain mass Seizure We will do: Labs CT head This patient is not a candidate for TPA given resolution of her symptoms Twelve-lead EKG was performed and reviewed by me. There is normal sinus rhythm with a normal rate. The axis is normal. The intervals are normal. There are no ST or T wave abnormalities. Impression: Normal twelve-lead EKG 04/07/19 19:01 Laboratory Tests 04/07/19 04/07/19 04/07/19 17:30 17:30 17:30 WBC 8.9 Hgb 14.0 Hct 41.4 Plt Count 245 INR 0.89 PTT (Actin FS) 22.5 L VBG pH POC VBG pCO2 POC VBG pO2 Creatine Kinase 125 Troponin I 0.02 04/07/19 18:33 WBC Hgb Hct Plt Count INR PTT (Actin FS) VBG pH 7.33 POC VBG pCO2 52.9 H POC VBG pO2 < 49 H Creatine Kinase Troponin I CT no acute intracranial pathology noted Given Vancomycin for cellulitis Will admit to tele Clinical impression: TIA, initial presentation cellulitis, initial presentation NIH Stroke Scale - Last Known Well Date/Time & Onset Date Last Known Well: 04/07/19 Time Last Known Well: 16:45 - Initial Evaluation Level of consciousness: Alert Ask patient the month and their age: Answers both correctly Ask patient to open & close eyes; make fist and let go: Obeys both correctly Best gaze (horizontal eye movement): Normal Visual field testing: No visual field loss Facial paresis (Show teeth/raise eyebrows/close eyes tight): Normal symmetrical movement Motor Function: Left Arm: Normal Motor Function: Right Arm: Normal (extends arm 90 (or 45) degrees for 10 seconds without drift Motor Function: Left Leg: Normal (extends leg 30 degrees for 5 seconds without drift) Motor Function: Right Leg: Normal (extends leg 30 degrees for 5 seconds without drift) Limb Ataxia: No ataxia Sensory(Use pinprick test arms,legs,trunk,face/side to side): Normal Best language (Describe picture, name items, read sentences): No Aphasia Dysarthria (read several words): Normal articulation Extinction and Inattention: No abnormality - Total Score NIH Stroke Scale Score: 0
[2019-04-07] MEDS ORDERED: SODIUM CHLORIDE 1,000 ML IV SCH (17:30)
[2019-04-07] MEDS ORDERED: VANCOMYCIN 1,000 MG in DEXTROSE 5%-WATER - 250 ML IVPB ONE (17:46)
[2019-04-07] MEDS ORDERED: ASPIRIN 325 MG TABLET PO ONE (17:47)
[2019-04-07 17:51] LABS: EOS % 5.9 % (0-4.5); HEMATOCRIT 41.4 % (32.4-45.2); LYMPH % 29.3 % (8-40); MCH 32.6 pg (25.7-33.7); MCHC 33.7 g/dl (32.0-36.0); MEAN CELL VOLUME 96.5 fl (80-96); MONO % 8.4 % (3.8-10.2); NEUT % 55.4 % (42.8-82.8); RDW 12.8 % (11.6-15.6); WHITE BLOOD COUNT 8.9 K/mm3 (4.0-10.0)
[2019-04-07 18:00] LABS: INR 0.89 (0.83-1.09); PROTHROMBIN TIME (PATIENT) 10.5 SEC (9.7-13.0)
[2019-04-07 18:02] LABS: ACTIVATED PTT 22.5 SECONDS (25.2-36.5)
[2019-04-07 18:23] LABS: PLATELET COUNT 245 K/MM3 (134-434)
[2019-04-07] MEDS ORDERED: ASPIRIN 325 MG ENTERIC COATED TABLET (FP) ONE (18:34)
[2019-04-07] MEDS ORDERED: VANCOMYCIN 1 GRAM (PRE-DOCKED) 1,000 MG/250 ML BAG IVPB ONE (18:34)
[2019-04-07 18:59] LABS: VENOUS PH 7.33 (7.31-7.41)
[2019-04-07 19:00] LABS: VENOUS PC02 52.9 mmHg (38-52); VENOUS PO2 < 49 mmHg (28-48)
[2019-04-07 19:15] LABS: ALBUMIN 3.6 g/dl (3.4-5.0); BILIRUBIN,TOTAL 0.4 mg/dL (0.2-1); BLOOD UREA NITROGEN 12.6 mg/dL (7-18); CALCIUM 8.9 mg/dL (8.5-10.1); POTASSIUM 5.2 mmol/L (3.5-5.1); TOT PROT 7.8 g/dl (6.4-8.2)
--- NOTE | 2019-04-07 19:29 | PDOC ---
*Physical Exam - Vital Signs Last Vital Signs Temp Pulse Resp BP Pulse Ox 98.7 F 112 H 20 149/63 99 04/07/19 16:47 04/07/19 16:47 04/07/19 16:47 04/07/19 16:47 04/07/19 16:47 ED Treatment Course - LABORATORY CBC & Chemistry Diagram: 04/07/19 17:30 04/07/19 17:30 - ADDITIONAL ORDERS Additional order review: Laboratory Results 04/07/19 04/07/19 04/07/19 17:30 17:30 17:30 PT with INR INR PTT (Actin FS) Sodium 139 Potassium 5.2 H Chloride 106 Carbon Dioxide 27 Anion Gap 7 L BUN 12.6 Creatinine 1.0 Est GFR (CKD-EPI)AfAm 69.92 Est GFR (CKD-EPI)NonAf 60.33 Random Glucose 88 Calcium 8.9 Total Bilirubin 0.4 AST 44 H ALT 27 Alkaline Phosphatase 103 Creatine Kinase 125 Troponin I 0.02 Total Protein 7.8 Albumin 3.6 Triglycerides 398 H Cholesterol 204 H Total LDL Cholesterol 98 Blood Type A POSITIVE Antibody Screen Negative 04/07/19 17:30 PT with INR 10.50 INR 0.89 PTT (Actin FS) 22.5 L Sodium Potassium Chloride Carbon Dioxide Anion Gap BUN Creatinine Est GFR (CKD-EPI)AfAm Est GFR (CKD-EPI)NonAf Random Glucose Calcium Total Bilirubin AST ALT Alkaline Phosphatase Creatine Kinase Troponin I Total Protein Albumin Triglycerides Cholesterol Total LDL Cholesterol Blood Type Antibody Screen 04/07/19 17:30 RBC 4.30 MCV 96.5 H MCHC 33.7 RDW 12.8 MPV 7.0 L Neutrophils % 55.4 D Lymphocytes % 29.3 D Monocytes % 8.4 Eosinophils % 5.9 H Basophils % 1.0 - Medications Given in the ED: ED Medications Discontinued Medications Generic Name Dose Route Start Last Admin Trade Name Freq PRN Reason Stop Dose Admin Aspirin 325 mg 04/07/19 17:47 04/07/19 18:30 Asa - PO 04/07/19 17:48 325 mg ONCE ONE Administration Vancomycin HCl 1,000 mg/ 250 mls @ 166.667 mls/hr 04/07/19 17:46 04/07/19 18: 30 Dextrose IVPB 04/07/19 19:15 166.667 mls/hr ONCE ONE Administration Protocol Medical Decision Making - Medical Decision Making 04/07/19 19:29 Patient Name: WILFRIDO CHOI THIS IS A PRELIMINARY REPORT FROM [facility] DATE OF SERVICE: 2019-04-07 17:41:29 IMAGES: 215 EXAM: CT HEAD WITHOUT CONTRAST HISTORY: 63-year-old female, CVA, TIA COMPARISON: No available comparison exams. TECHNIQUE: Axial non-contrast images of the head obtained from the skull base to the vertex. Radiation Dose Reduction: This CT exam was performed using one or more of the following dose reduction techniques: automated exposure control, adjustment of the mA and/or kV according to patient size, use of iterative reconstruction technique. Radiation Dose: Based on a 16 cm phantom, the estimated radiation dose CTDIvol mGy for each series in this exam is 23 1-. The estimated cumulative dose (DLP mGy-cm) is 475.8. FINDINGS: Parenchyma: No acute intracranial hemorrhage or mass effect. No hypodensity. Extra-axial collection: No extra-axial fluid collection or hemorrhage. Ventricles and cisterns: Normal and symmetric in size and shape. No SAH. Paranasal sinuses: Visualized portions are unremarkable. Mastoid air cells: Unremarkable. Orbits: Visualized portions are unremarkable. Calvarium: No acute fracture. IMPRESSION: No evidence of acute intracranial abnormality. Discharge - Discharge Information Problems reviewed: Yes Clinical Impression/Diagnosis: Transient ischemic attack Cerebrovascular accident (CVA) Qualifiers: CVA mechanism: unspecified Qualified Code(s): I63.9 - Cerebral infarction, unspecified Cellulitis Qualifiers: Site of cellulitis: extremity Site of cellulitis of extremity: lower extremity Laterality: left Qualified Code(s): L03.116 - Cellulitis of left lower limb Condition: Stable - Follow up/Referral - Patient Discharge Instructions - Post Discharge Activity
--- NOTE | 2019-04-07 20:45 | HP ---
CHIEF COMPLAINT: facial droop PCP: Hector Wiley HISTORY OF PRESENT ILLNESS: 63 y/o female PMH HTN, Parkinson disease, bipolar depression, peripheral vascular insufficiency, lymphedema, and skin CA presents s/p 10 minute episode of LEFT facial droop and slurred speech. She states that while cooking, she felt nothing unusual, remained alert/aware, but her observed the LEFT side of her face drooping. She states she walked w/o incident toward him and sent him to another room for a hand mirror. The facial droop resolved by time the returned. She states that at the time she was cooking, is often emotionally stressed as she is in a legal mar with her sister over mother's estate, and uses marijuana daily. This is the first time this has happened. She denies any aura, LOC, and tongue biting. She has additional concern of a laceration on her RIGHT antoine. She injured it on a bathroom vanity. Her lymphedema is present BL and she reports that it has become worse, progressively over the last few months. The trauamatized region is tender: aching, non-radiating, warm. She denies change in vision, GOMEZ, dizziness, SOB, CP and NVFD. ER course was notable for: (1) CT head - no acute intracranial changes (2) ASA 325 mg PO administered Recent Travel: Denies Family History: Mother TIA, Alzheimer disease PAST MEDICAL HISTORY: HTN, Parkinson disease, bipolar depression, peripheral vascular insufficiency, lymphedema, and skin CA PAST SURGICAL HISTORY: MOHS surgery (excisional skin removal of skin cancer), Cervical plasto-laminectomy (2015), b/l hip replacement (2009), revised in 2010 , 2012, Carpal Tunnel Release, Abdominal lap band 2010, Left leg surgery for venous stasis, cyst removal - left 3rd digit distal phalanx Social History: Smoking: Active 1 ppd for 48 years, in contemplative stage of cessation Alcohol: social Drugs: marijuana, daily Allergies No Known Drug Allergies Allergy (Verified 03/15/19 16:22), lactose Adverse Reaction (Verified 03/15/19 16:22), BEE STINGS Allergy (Severe, Uncoded 03/15/19 16:22) Hives HOME MEDICATIONS: Home Medications Medication Instructions Recorded Bumetanide 2 mg PO BID 05/28/15 Bupropion HCl [Wellbutrin Xl -] 300 mg PO DAILY 05/28/15 Carvedilol [Coreg] 3.125 mg PO BID 05/28/15 Clonazepam [Klonopin] 1 mg PO HS 05/28/15 Lamotrigine [Lamictal] 300 mg PO DAILY 05/28/15 Spironolactone 25 mg PO DAILY 05/28/15 Pramipexole Di-HCl [Pramipexole 0.75 mg PO BID 01/23/17 Dihydrochloride] Aspirin [ASA -] 1 tab PO DAILY 03/06/17 Escitalopram Oxalate [Lexapro -] 20 mg PO AM 01/14/19 Phentermine HCl 37.5 mg PO DAILY 01/14/19 Lactobacillus Acidophilus [Bacid -] 1 tab PO DAILY #14 tab 01/17/19 Oxycodone HCl [Oxycontin] 10 mg PO PRN 04/07/19 Quetiapine Fumarate [Seroquel -] 200 mg PO HS 04/07/19 REVIEW OF SYSTEMS CONSTITUTIONAL: Absent: fever, chills, diaphoresis, generalized weakness, malaise, loss of appetite, weight change HEENT: Absent: rhinorrhea, nasal congestion, throat pain, throat swelling, difficulty swallowing, mouth swelling, ear pain, eye pain, visual changes CARDIOVASCULAR: Absent: chest pain, syncope, palpitations, irregular heart rate, lightheadedness , peripheral edema RESPIRATORY: Absent: cough, shortness of breath, dyspnea with exertion, orthopnea, wheezing, stridor, hemoptysis GASTROINTESTINAL: Absent: abdominal pain, abdominal distension, nausea, vomiting, diarrhea, constipation, melena, hematochezia GENITOURINARY: Absent: dysuria, frequency, urgency, hesitancy, hematuria, flank pain, genital pain MUSCULOSKELETAL: Absent: myalgia, arthralgia, joint swelling, back pain, neck pain SKIN: Absent: rash, itching, pallor HEMATOLOGIC/IMMUNOLOGIC: Absent: easy bleeding, easy bruising, lymphadenopathy, frequent infections ENDOCRINE: Absent: unexplained weight gain, unexplained weight loss, heat intolerance, cold intolerance NEUROLOGIC: Absent: headache, focal weakness or paresthesias, dizziness, unsteady gait, seizure, mental status changes, bladder or bowel incontinence PSYCHIATRIC: Absent: anxiety, depression, suicidal or homicidal ideation, hallucinations. PHYSICAL EXAMINATION Vital Signs - 24 hr 04/07/19 16:47 Temperature 98.7 F Pulse Rate 112 H Respiratory 20 Rate Blood Pressure 149/63 O2 Sat by Pulse 99 Oximetry (%) GENERAL: AOx3, in no acute distress. HEAD: NCAT, surgical scar on posterior neck EYES: CORNELIA, EOMI, conjunctiva clear. ENT: Ears normal, nares patent, oropharynx clear without exudates. Moist mucous membranes. NECK: Normal range of motion, supple without lymphadenopathy, JVD, or masses. LUNGS: CTAB. No wheezes, and no crackles. No accessory muscle use. HEART: RRR s1 s2 ABDOMEN: Soft, BS present in all 4 quadrants, non-distended, no JVD, MUSCULOSKELETAL: No bony deformities or tenderness. No CVA tenderness. UPPER EXTREMITIES: 2+ pulses, warm, well-perfused. No cyanosis. No clubbing. No peripheral edema. LOWER EXTREMITIES: BL darkened discoloration distally. RIGHT 3x1x1 cm healed laceration. 2+ pulses, warm, well-perfused. No calf tenderness. 1+ peripheral edema in BL LE. NEUROLOGICAL: No focal deficits. Cranial nerves II-XII intact. Normal speech. Gait appropriate with good swing, strike and circumambulation. PSYCHIATRIC: Cooperative. Good eye contact. Appropriate mood and affect. SKIN: Warm, dry, normal turgor, no rashes or lesions noted, normal capillary refill. Laboratory Results - last 24 hr 04/07/19 04/07/19 04/07/19 17:30 17:30 17:30 WBC 8.9 RBC 4.30 Hgb 14.0 Hct 41.4 MCV 96.5 H MCH 32.6 MCHC 33.7 RDW 12.8 Plt Count 245 MPV 7.0 L Absolute Neuts (auto) 4.9 Neutrophils % 55.4 D Lymphocytes % 29.3 D Monocytes % 8.4 Eosinophils % 5.9 H Basophils % 1.0 Nucleated RBC % 0 PT with INR 10.50 INR 0.89 PTT (Actin FS) 22.5 L VBG pH POC VBG pCO2 POC VBG pO2 VBG HCO3 VBG O2 Sat (Sharmin) VBG Base Excess Sodium Potassium Chloride Carbon Dioxide Anion Gap BUN Creatinine Est GFR (CKD-EPI)AfAm Est GFR (CKD-EPI)NonAf Random Glucose Lactic Acid Calcium Total Bilirubin AST ALT Alkaline Phosphatase Creatine Kinase 125 Troponin I 0.02 Total Protein Albumin Triglycerides Cholesterol Total LDL Cholesterol Blood Type Antibody Screen 04/07/19 04/07/19 04/07/19 17:30 17:30 18:33 WBC RBC Hgb Hct MCV MCH MCHC RDW Plt Count MPV Absolute Neuts (auto) Neutrophils % Lymphocytes % Monocytes % Eosinophils % Basophils % Nucleated RBC % PT with INR INR PTT (Actin FS) VBG pH POC VBG pCO2 POC VBG pO2 VBG HCO3 VBG O2 Sat (Sharmin) VBG Base Excess Sodium 139 Potassium 5.2 H Chloride 106 Carbon Dioxide 27 Anion Gap 7 L BUN 12.6 Creatinine 1.0 Est GFR (CKD-EPI)AfAm 69.92 Est GFR (CKD-EPI)NonAf 60.33 Random Glucose 88 Lactic Acid 1.4 Calcium 8.9 Total Bilirubin 0.4 AST 44 H ALT 27 Alkaline Phosphatase 103 Creatine Kinase Troponin I Total Protein 7.8 Albumin 3.6 Triglycerides 398 H Cholesterol 204 H Total LDL Cholesterol 98 Blood Type A POSITIVE Antibody Screen Negative 04/07/19 18:33 WBC RBC Hgb Hct MCV MCH MCHC RDW Plt Count MPV Absolute Neuts (auto) Neutrophils % Lymphocytes % Monocytes % Eosinophils % Basophils % Nucleated RBC % PT with INR INR PTT (Actin FS) VBG pH 7.33 POC VBG pCO2 52.9 H POC VBG pO2 < 49 H VBG HCO3 27.7 VBG O2 Sat (Sharmin) 47.0 L VBG Base Excess 1.4 Sodium Potassium Chloride Carbon Dioxide Anion Gap BUN Creatinine Est GFR (CKD-EPI)AfAm Est GFR (CKD-EPI)NonAf Random Glucose Lactic Acid Calcium Total Bilirubin AST ALT Alkaline Phosphatase Creatine Kinase Troponin I Total Protein Albumin Triglycerides Cholesterol Total LDL Cholesterol Blood Type Antibody Screen ASSESSMENT/PLAN: 63 y/o female PMH HTN, Parkinson disease, bipolar depression, peripheral vascular insufficiency, lymphedema, and skin CA presents with brief episode at home suspicious of CVA. CT NEG. Clinically no focal neurological deficits. # TIA - Echo - Carotid Doppler ultrasound - N.p.o. untill speech and swallow evaluation passed, then advance diet as tolerated - PT evaluation - ASA 81 mg PO QD - Rosuvastatin 20 mg PO HS - Fall precautions # RIGHT LE laceration - Keep clean and dry - 7 days clindamycin - ESR and CRP - # Lymphedema/PVD - Cont care with preferred vascular surgeon # smoking cessation - Est that pt is in contemplative phase - Educated pt on benefit of smoking cessation #F/E/N - PO hydration - Cont. to monitor - Low sodium diet # DVT prophylaxis - Heparin SQ # Disposition - Admit to med-surg Neri Cedeno MD Visit type - Emergency Visit Emergency Visit: Yes ED Registration Date: 04/07/19 Care time: The patient presented to the Emergency Department on the above date and was hospitalized for further evaluation of their emergent condition. - New Patient This patient is new to me today: Yes Date on this admission: 04/08/19 - Critical Care Critical Care patient: No ATTENDING PHYSICIAN STATEMENT I saw and evaluated the patient. I reviewed the resident's note and discussed the case with the resident. I agree with the resident's findings and plan as documented. SUBJECTIVE: OBJECTIVE: ASSESSMENT AND PLAN:
[2019-04-07] MEDS ORDERED: QUEtiapine FUMARATE 200 MG TABLET PO SCH (22:00)
[2019-04-07] MEDS ORDERED: clonazePAM 0.5 MG TABLET PO SCH (22:00)
[2019-04-07] MEDS ORDERED: PRAMIPEXOLE DIHYDROCHLORIDE 1.5 MG TABLET PO SCH (22:00)
[2019-04-07] MEDS ORDERED: ROSUVASTATIN CA 20 MG TABLET (FP) PO SCH (22:00)
--- NOTE | 2019-04-07 23:01 | PN ---
Teaching Attending Note Name of Resident: Neri Cedeno ATTENDING PHYSICIAN STATEMENT I saw and evaluated the patient. I reviewed the resident's note and discussed the case with the resident. I agree with the resident's findings and plan as documented. SUBJECTIVE: 63-year-old woman with a history of hypertension, Parkinson's, peripheral venous insufficiency, chronic low back pain, bipolar disorder, bilateral hip replacements complained of slurring of speech and left facial drooping and left arm weakness which started 04/07/2019 At 3:30 PM in the afternoon and lasted about 5 minutes before resolving spontaneously. Event was witnessed by . When patient presented to emergency room her symptoms were all resolved already. Denied any headache or dizziness or vomiting. Patient is persistent tobacco smoker. Patient noted that she completed course of Keflex last week for lower extremity cellulitis. OBJECTIVE: Last Vital Signs Temp Pulse Resp BP Pulse Ox 98.3 F 95 H 18 125/65 95 04/07/19 21:45 04/07/19 21:45 04/07/19 21:45 04/07/19 21:45 04/07/19 21:46 GENERAL: Well developed, well nourished. Awake and alert. No acute distress. HEENT: Normocephalic, atraumatic. PERRLA, EOMI. No conjunctival pallor. Sclera are non- icteric. Moist mucous membranes. Oropharynx is clear. NECK: Supple. Full ROM. No JVD. Carotid pulses 2+ and symmetric, without bruits. No thyromegaly. No lymphadenopathy. CARDIOVASCULAR: Regular rate and rhythm. No murmurs, rubs, or gallops. Distal pulses are 2+ and symmetric. PULMONARY: No evidence of respiratory distress. Lungs clear to auscultation bilaterally. No wheezing, rales or rhonchi. ABDOMINAL: Soft. Non-tender. Non-distended. No rebound or guarding. No organomegaly. Normoactive bowel sounds. MUSCULOSKELETAL Normal range of motion at all joints. No bony deformities or tenderness. No CVA tenderness. EXTREMITIES: Bilateral 1+ pitting edema in legs, erythematous, warm to touch SKIN: Warm and dry. Normal capillary refill. No rashes. No jaundice. NEUROLOGICAL: Alert, awake, appropriate. Cranial nerves 2-12 intact. No deficits to light touch and temperature in face, upper extremities and lower extremities. No motor deficits in the in face, upper extremities and lower extremities. Normoreflexic in the upper and lower extremities. Normal speech. PSYCHIATRIC: Cooperative. Good eye contact. Appropriate mood and affect. Abnormal Lab Results 04/07/19 04/07/19 04/07/19 17:30 17:30 17:30 MCV 96.5 H MPV 7.0 L Eosinophils % 5.9 H PTT (Actin FS) 22.5 L POC VBG pCO2 POC VBG pO2 VBG O2 Sat (Sharmin) Potassium 5.2 H Anion Gap 7 L AST 44 H Triglycerides 398 H Cholesterol 204 H 04/07/19 18:33 MCV MPV Eosinophils % PTT (Actin FS) POC VBG pCO2 52.9 H POC VBG pO2 < 49 H VBG O2 Sat (Sharmin) 47.0 L Potassium Anion Gap AST Triglycerides Cholesterol Imaging studies reviewed Head CT was negative for any acute infarcts ASSESSMENT AND PLAN: 63-year-old woman with likely TIA, CVA should be ruled out at this time. Neuro exam at this time is normal. Admit to telemetry Neurology evaluation Echo Carotid Doppler ultrasound N.p.o. Speech and swallow evaluation PT evaluation Aspirin Statin Bedrest and fall precautions #Parkinsonism Continue with home dose pramipexole #Lower extremity cellulitis Clindamycin 600 mg IV every 8hrs Stressed smoking cessation #Insomnia Continue Seroquel nightly and clonazepam Heparin subcutaneously for DVT prophylaxis
[2019-04-07] MEDS: CARVEDILOL 3.125 MG TABLET (FP) PO SCH (23:36)
[2019-04-07 23:38] LABS: EPI CELLS 11.9 /HPF (0-5/HPF); HYALINE CASTS 4 /lpf (0-8); URINE APPEARANCE CLEAR; URINE BACTERIA 46.6 /hpf (NEGATIVE); URINE BILIRUBIN NEGATIVE (NEGATIVE); URINE COLOR YELLOW; URINE GLUCOSE (UA) NEGATIVE (NEGATIVE); URINE KETONE NEGATIVE (NEGATIVE); URINE LEUK ESTERASE 1+ (NEGATIVE); URINE NITRITE NEGATIVE (NEGATIVE); URINE PROTEIN TRACE (NEGATIVE); URINE RBC 2 /hpf (0-4); URINE UROBILINOGEN 0.2 mg/dL (0.2-1.0); URINE WBC 17 /hpf (0-5)
[2019-04-07] MEDS: PRAMIPEXOLE DIHYDROCHLORIDE 0.5 MG, PRAMIPEXOLE DIHYDROCHLORIDE 0.25 MG PO SCH (23:41)
[2019-04-08 00:15] VITALS: BMI 44.1
[2019-04-08] MEDS: BUMETANIDE 1 MG TABLET PO SCH ×2 (06:05→14:23)
[2019-04-08] MEDS ORDERED: ESCITALOPRAM OXALATE 20 MG TABLET (FP) PO SCH (07:00)
[2019-04-08 07:44] LABS: BASO % 1.4 % (0-2.0); EOS % 6.6 % (0-4.5); HEMATOCRIT 38.4 % (32.4-45.2); LYMPH % 36.3 % (8-40); MCH 32.9 pg (25.7-33.7); MCHC 33.9 g/dl (32.0-36.0); MEAN CELL VOLUME 97.1 fl (80-96); MEAN PLT VOLUME 7.2 fl (7.5-11.1); MONO % 9.4 % (3.8-10.2); NEUT % 46.3 % (42.8-82.8); PLATELET COUNT 248 K/MM3 (134-434); RBC 3.95 M/mm3 (3.60-5.2); WHITE BLOOD COUNT 6.6 K/mm3 (4.0-10.0)
[2019-04-08 08:15] LABS: BLOOD UREA NITROGEN 11.2 mg/dL (7-18); CALCIUM 8.6 mg/dL (8.5-10.1); MAGNESIUM 2.3 mg/dL (1.8-2.4); PHOSPHOROUS 4.4 mg/dL (2.5-4.9); POTASSIUM 3.6 mmol/L (3.5-5.1)
[2019-04-08] MEDS ORDERED: SPIRONOLACTONE 25 MG TABLET (FP) PO SCH (10:00)
[2019-04-08] MEDS ORDERED: LACTOBACILLUS ACIDOPHILUS 1 TABLET PO SCH (10:00)
[2019-04-08] MEDS ORDERED: ENOXAPARIN NA (PORCINE) 40 MG/0.4 ML DISP.SYRIN SQ SCH (10:00)
[2019-04-08] MEDS ORDERED: ASPIRIN 81 MG CHEWABLE TABLETS PO SCH (10:00)
[2019-04-08] MEDS ORDERED: PHENTERMINE HCL 37.5 MG PO SCH (10:00)
[2019-04-08] MEDS ORDERED: CLINDAMYCIN 600MG PREMIX IVPB 600 MG/50 ML BAG IVPB SCH (10:00)
[2019-04-08] MEDS ORDERED: lamoTRIgine 100 MG TABLET (FP) PO SCH (10:00)
[2019-04-08] MEDS ORDERED: PRAMIPEXOLE DIHYDROCHLORIDE 0.25 MG TABLET ONE (10:09)
[2019-04-08] MEDS ORDERED: PRAMIPEXOLE DIHYDROCHLORIDE 0.5 MG TABLET ONE (10:10)
[2019-04-08] MEDS: PRAMIPEXOLE DIHYDROCHLORIDE 0.5 MG, PRAMIPEXOLE DIHYDROCHLORIDE 0.25 MG PO SCH (10:20)
[2019-04-08] MEDS: CARVEDILOL 3.125 MG TABLET (FP) PO SCH (10:20)
[2019-04-08] MEDS ORDERED: PT OWN MED DRAWER 7, Y5N ONE ×2 (10:23→14:19)
--- NOTE | 2019-04-08 10:35 | CON.NEURO ---
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 Cardio/Vascular: Yes: Other (peripheral veous disease with chronic edema) Psych: Yes: Bipolar Musculoskeletal: Yes: Other (herniated intervertebral disks of the spine) - Past Surgical History Past Surgical History: Yes: Bariatric Surgery (gastric band), Joint Replacement (bilateral hips), Laminectomy - Alcohol/Substance Use Hx Alcohol Use: No History of Substance Use: reports: Marijuana - Smoking History Smoking history: Current every day smoker Have you smoked in the past 12 months: Yes Aproximately how many cigarettes per day: 20 - Social History Occupation: Disabled due to spinal stenosis Home Medications - Allergies Allergies/Adverse Reactions: Allergies Allergy/AdvReac Type Severity Reaction Status Date / Time No Known Drug Allergies Allergy Verified 03/15/19 16:22 lactose AdvReac Verified 03/15/19 16:22 BEE STINGS Allergy Severe Hives Uncoded 03/15/19 16:22 - Home Medications Home Medications: Ambulatory Orders Bumetanide 2 mg PO BID 05/28/15 Bupropion HCl [Wellbutrin Xl -] 300 mg PO DAILY 05/28/15 Carvedilol [Coreg] 3.125 mg PO BID 05/28/15 Clonazepam [Klonopin] 1 mg PO HS 05/28/15 Lamotrigine [Lamictal] 300 mg PO DAILY 05/28/15 Spironolactone 25 mg PO DAILY 05/28/15 Pramipexole Di-HCl [Pramipexole Dihydrochloride] 0.75 mg PO BID 01/23/17 Aspirin [ASA -] 1 tab PO DAILY 03/06/17 Escitalopram Oxalate [Lexapro -] 20 mg PO AM 01/14/19 Phentermine HCl 37.5 mg PO DAILY 01/14/19 Lactobacillus Acidophilus [Bacid -] 1 tab PO DAILY #14 tab 01/17/19 Oxycodone HCl [Oxycontin] 10 mg PO PRN 04/07/19 Quetiapine Fumarate [Seroquel -] 200 mg PO HS 04/07/19 Physical Exam-Neuro Vital Signs: Vital Signs Temperature 98.4 F 04/08/19 06:00 Pulse Rate 80 04/08/19 06:00 Respiratory Rate 20 04/08/19 06:00 Blood Pressure 121/62 04/08/19 06:00 O2 Sat by Pulse Oximetry (%) 94 L 04/07/19 22:05 Labs: CBC, BMP 04/08/19 07:00 04/08/19 07:00 INR, PTT INR 0.89 (0.83-1.09) 04/07/19 17:30 Assessment/Plan cc Left face droopiness lasting for fe wminute 63 y/o female PMH HTN, Parkinson disease, bipolar depression, peripheral vascular insufficiency, lymphedema, and skin CA presents s/p 10 minute episode of left facial droopiness ( witnessed by her ), she did not feel any slurrin go fspeech though her thought she had slurring of speech. She as brought to hospital, she had ct head and it wa sunremarkable. She takes apsirin at home, she do not take statin at home. She smoke and has hitory of stroke in her family. Family History: Mother TIA, Alzheimer disease PAST MEDICAL HISTORY: HTN, Parkinson disease, bipolar depression, peripheral vascular insufficiency, lymphedema, and skin CA PAST SURGICAL HISTORY: MOHS surgery (excisional skin removal of skin cancer), Cervical plasto-laminectomy (2015), b/l hip replacement (2009), revised in 2010 , 2012, Carpal Tunnel Release, Abdominal lap band 2010, Left leg surgery for venous stasis, cyst removal - left 3rd digit distal phalanx Social History: Smoking: Active 1 ppd for 48 years, in contemplative stage of cessation Alcohol: social Drugs: marijuana, daily Allergies No Known Drug Allergies Allergy (Verified 03/15/19 16:22), lactose Adverse Reaction (Verified 03/15/19 16:22), BEE STINGS Allergy (Severe, Uncoded 03/15/19 16:22) Hives HOME MEDICATIONS: Home Medications Medication Instructions Recorded Bumetanide 2 mg PO BID 05/28/15 Bupropion HCl [Wellbutrin Xl -] 300 mg PO DAILY 05/28/15 Carvedilol [Coreg] 3.125 mg PO BID 05/28/15 Clonazepam [Klonopin] 1 mg PO HS 05/28/15 Lamotrigine [Lamictal] 300 mg PO DAILY 05/28/15 Spironolactone 25 mg PO DAILY 05/28/15 Pramipexole Di-HCl [Pramipexole 0.75 mg PO BID 01/23/17 Dihydrochloride] Aspirin [ASA -] 1 tab PO DAILY 03/06/17 Escitalopram Oxalate [Lexapro -] 20 mg PO AM 01/14/19 Phentermine HCl 37.5 mg PO DAILY 01/14/19 Lactobacillus Acidophilus [Bacid -] 1 tab PO DAILY #14 tab 01/17/19 Oxycodone HCl [Oxycontin] 10 mg PO PRN 04/07/19 Quetiapine Fumarate [Seroquel -] 200 mg PO HS 04/07/19 ROS,FH,SH reviewed in chart NEUROLOGICAL EXAMINATION Alert oriented x 3, speech is normal, vss, neck is supple eomi, pupils reactive no face asymmetry moving all ext, sensation i noraml gait and coordination is normal ct hea dunremarkable carotid ultrasond is normal Assessment/sabrina 63 y/o female PMH HTN, Parkinson disease, bipolar depression, peripheral vascular insufficiency, lymphedema, and skin CA presents s/p 10 minute episode of left facial droopiness , lasting for 10 minute. Most likley TIA, she was taking apsirin at home, never bene on statin Plan: concur with continuing statin and apisrin - carotid ultrasound is normal mri of brain is not necessary continue maximal medical therapy - she can be discharged home from neurological point of view Thanking you so much Devendra Powell MD
--- NOTE | 2019-04-08 12:03 | CONSULT ---
Admitting History and Physical - Primary Care Physician PCP: Sancho Mcgovern - Admission History of Present Illness: 63 y/o female PMH HTN, Parkinson disease, bipolar depression, peripheral vascular insufficiency, lymphedema, and skin CA presents with left facial droop at home x 5 minute duration suspicious of CVA. CT NEG. Clinically no focal neurological deficits. 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: Parkinson's Cardiovascular: Yes: Other (peripheral veous disease with chronic edema) Psych: Yes: Bipolar Musculoskeletal: Yes: Other (herniated intervertebral disks of the spine) - Past Surgical History Past Surgical History: Yes: Bariatric Surgery (gastric band), Joint Replacement (bilateral hips), Laminectomy - Smoking History Smoking history: Current every day smoker Have you smoked in the past 12 months: Yes Aproximately how many cigarettes per day: 20 - Alcohol/Substance Use Hx Alcohol Use: No History of Substance Use: reports: Marijuana - Social History Occupation: Disabled due to spinal stenosis History - Admission Reason For Visit: CELLULITIS,TRANSIENT ISCHEMIC ATTACK - Diagnostics X-ray: Report Reviewed CT Scan: Report Reviewed - General Mental Status: Alert and Oriented, Awake and Alert (sleepy but arousable), Able to Follow Commands Ability to Follow Directions: Excellent, Good - Hearing Hearing: Normal Hearing Aide: No Speech Evaluation - Communication Primary Language: SWEDISH Communication: Yes: Within Normal Limits Oral Expression Ability: Yes: Mild Impairment - Speech Production Able to Make Needs Known: Yes: WNL Intelligibility: Yes: Mildly Impaired - Speech Characteristics Voice Loudness: Mildly Soft/Quiet Voice Pitch: Yes: Mildly High Voice Phonatory-based Quality: Yes: Dysphonia ("comes and goes forever" Never seen by ENT) Speech Clarity: < 100% Nasal Resonance: Normal Articulation: Yes: Precise - Language/Auditory Comprehension Follows: Yes: 2 Stage Simple Commands Observation: Able to respond to yes/no queries: Yes, Comprehends Conversational Speech: Yes - Language/Verbal Expression Able to Respond to Simple Queries: Yes: WNL Able to Communicate Wants and Needs: Yes: WNL Functional Communication Status: Yes: WNL - 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 Memory: Yes: WNL Short Term Memory: Yes: WNL - Swallow Evaluation/Bedside Assessment Current Nutritional Intake: Regular, Thin Liquids Oral Secretions: Yes: WFL Dentition: Yes: Adequate Facial Symmetry at Rest: Symmetrical Facial Symmetry on Retraction: Symmetrical Facial Movement: Controlled Against Resistance Opening: Normal Against Resistance Closing: Normal Pucker Lips: Normal Smile: Normal Lingual Movement: Normal, Symmetric Lingual Speed of Movement: Normal Lingual Movement Strgth Against Opposition: Normal Lingual Movement Characteristics: Normal Velopharyngeal Movement: Normal Laryngeal Elevation: WFL Laryngeal Movement: Able to Palpate Rate of Intake: WFL Bolus Size: WFL Labial Seal: WFL Chewing: WFL Oral Prep Time: WFL A-P Transit: WFL Timing of Swallow: WFL Coughing/Throat Clear: No Change in Voice: No Recommendations - Speech Evaluation, Impression/Plan Impression: Dysphonia, intermediate, varies. r/o laryngopharyngeal refux. Speech/ language,swallowing, cognition otherwise at baseline - Dysphagia Impressions/Plan Swallowing Skills: [facility] Dysphagia Impressions: No Impairment *Silent aspiration: cannot be R/O at bedside Dysphagia Treatment Plan: OOB for meals, OOB for 1 h. after meals, Other (GERD precautions. Minimize cadffeine, carbonation, citrus, high fat, mints, Upright x 2 hours after meals.Reviewed with pt/) Recommendations: ENT Consult (Out pt--consider Kuldip Palacios visualize vocal cords r/o LPR. Reviewed with pt/) - Recommendations Diet Consistency: Regular Medication Administration: Whole with water Liquids: Thin Liquids
[2019-04-08 12:09] LABS: ERYTHROCYTE SEDIMENTATION RATE 40 mm/hr (0-30)
--- NOTE | 2019-04-08 14:07 | ECHO ---
Name: WILFRIDO CHOI Exam:Adult Echocardiogram Study Date: 04/08/2019 01:27 PM Age: 63 yrs Height: 59 in Weight: 180 lb BSA: 1.8 m2 MMode/2D Measurements & Calculations IVSd: 0.84 cm Ao root diam: 2.1 cm LVIDd: 3.7 cm LA dimension: 2.7 cm LVIDs: 2.6 cm LVPWd: 1.1 cm LVPWs: 1.3 cm EDV(Teich): 58.8 ml ESV(Teich): 24.5 ml LVOT diam: 1.8 cm Doppler Measurements & Calculations MV E max alicia: 85.9 cm/sec Ao V2 max: 240.0 cm/sec MV A max alicia: 117.5 cm/sec Ao max P.2 mmHg MV E/A: 0.73 MV dec time: 0.14 sec JASON(V,D): 1.5 cm2 LV V1 max P.0 mmHg TR max alicia: 247.7 cm/sec LV V1 max: 141.7 cm/sec TR max P.5 mmHg PA V2 max: 149.3 cm/sec PA max P.9 mmHg Left Ventricle Left ventricular systolic function is normal. Ejection Fraction = 55-60%. The transmitral spectral Do ppler flow pattern is suggestive of impaired LV relaxation. Right Ventricle The right ventricle is normal in size and function. Atria Normal left and right atrial size and function. Mitral Valve The mitral valve is normal in structure and function. There is no mitral valve stenosis. There is mil d mitral regurgitation. Tricuspid Valve The tricuspid valve is normal in structure and function. There is mild tricuspid regurgitation. Aortic Valve There is moderate aortic sclerosis.;. No hemodynamically significant valvular aortic stenosis. Pulmonic Valve The pulmonic valve is not well seen, but is grossly normal. There is no pulmonic valvular stenosis. Great Vessels The aortic root is normal size. Pericardium/Pleura There is no pericardial effusion. Interpretation Summary Left ventricular systolic function is normal. Ejection Fraction = 55-60%. The transmitral spectral Doppler flow pattern is suggestive of impaired LV relaxation. The right ventricle is normal in size and function. There is mild mitral regurgitation. There is mild tricuspid regurgitation. There is moderate aortic sclerosis.; No hemodynamically significant valvular aortic stenosis. There is no pericardial effusion. MD Ascencio *Kristel 04/08/2019 02:07 PM
--- NOTE | 2019-04-08 14:18 | EKG ---
Test Reason : Blood Pressure : / mmHG Vent. Rate : 097 BPM Atrial Rate : 097 BPM P-R Int : 140 ms QRS Dur : 070 ms QT Int : 342 ms P-R-T Axes : 068 034 050 degrees QTc Int : 434 ms NORMAL SINUS RHYTHM NORMAL ECG WHEN COMPARED WITH ECG OF 14-JAN-2019 00:44, NO SIGNIFICANT CHANGE WAS FOUND Confirmed by JIMI SANCHEZ MD ([id number]) on 04/08/2019 2:18:02 PM Referred By: Confirmed By:JIMI SANCHEZ MD
[2019-04-08 14:50] VITALS: BP 125/78; PULSE 101; TEMP 98
--- NOTE | 2019-04-08 15:17 | PN ---
Teaching Attending Note Name of Resident: Rosa Guerra ATTENDING PHYSICIAN STATEMENT I saw and evaluated the patient. I reviewed the resident's note and discussed the case with the resident. I agree with the resident's findings and plan as documented. SUBJECTIVE: No fever or chills. No GOMEZ. no weakness . no pain in legs OBJECTIVE: NAD, MMM, pleasant . CV: RRR, no MRG lungs: CTAB Ext: non pitting edema on legs with mils erythema b/l. Nl strength . R anterior antoine wound ( 2x3 cm ) with slight surrounding erythema. no tenderness or drainage. No fungal infection in toe webs neuro : EOMI, round equal pupils, reactive to light. strength 5/5 in upper and lower extremities proximally and distally. No facial droop ASSESSMENT AND PLAN: 63 y/o lady with h/o lymphedema, HTN, back pain, Parkinson's disease, and otehr medical problems who presented with transient slurred speech, facial droop, and L arm weakness. She was diagnosed with TIA 1- TIA: nl ne uro exam. - CUS, CT, Echo reviewed. - tele with no events - LDL > goal.cont crestor - cont ASA - advised to loose weight and exercise as possible 2- R antoine ulcer. with mild cellulitis. - does not need IV abx. switch to po clinda x 5 days - she was educated about side effects of diarrhea and colitis 3- H/o HTN: - cont coreg and spironolactone 4- Depression: cont meds dc home . f/u with neuro and PCP
--- NOTE | 2019-04-08 15:28 | DS ---
Physical Exam: SUBJECTIVE: Patient seen and examined. She denies fever, chills, dizziness, chest pain, shortness of breath, abdominal pain. She reports chronic venous insufficiency in legs and cellulitis. OBJECTIVE: Vital Signs Period Temp Pulse Resp BP Sys/Moraes Pulse Ox Last 24 Hr 98 F-99.1 F 75-112 18-20 121-149/62-81 94-99 PHYSICAL EXAM GENERAL: The patient is awake, alert, and fully oriented, in no acute distress. HEAD: Normal with no signs of trauma. EYES: PERRL, extraocular movements intact, conjunctiva clear. ENT: Ears normal, nares patent, moist mucous membranes. NECK: Trachea midline, full range of motion LUNGS: Clear to auscultation HEART: Regular rate and rhythm, no murmur ABDOMEN: Soft, nontender, obese, normoactive bowel sounds EXTREMITIES: Right LE erythematous below knee into foot, 3x2 cm laceration not actively draining; left LE chronic dry skin and discoloration NEUROLOGICAL: Cranial nerves II through XII grossly intact. Normal speech. No facial droop. Able to ambulate independently. PSYCH: Normal mood, normal affect. SKIN: Warm, dry, normal turgor, no rashes or lesions noted other than above LABS Laboratory Results - last 24 hr 04/07/19 04/07/19 04/07/19 17:30 17:30 17:30 WBC 8.9 RBC 4.30 Hgb 14.0 Hct 41.4 MCV 96.5 H MCH 32.6 MCHC 33.7 RDW 12.8 Plt Count 245 MPV 7.0 L Absolute Neuts (auto) 4.9 Neutrophils % 55.4 D Lymphocytes % 29.3 D Monocytes % 8.4 Eosinophils % 5.9 H Basophils % 1.0 Nucleated RBC % 0 ESR PT with INR 10.50 INR 0.89 PTT (Actin FS) 22.5 L VBG pH POC VBG pCO2 POC VBG pO2 VBG HCO3 VBG O2 Sat (Sharmin) VBG Base Excess Sodium Potassium Chloride Carbon Dioxide Anion Gap BUN Creatinine Est GFR (CKD-EPI)AfAm Est GFR (CKD-EPI)NonAf Random Glucose Hemoglobin A1c % Lactic Acid Calcium Phosphorus Magnesium Total Bilirubin AST ALT Alkaline Phosphatase Creatine Kinase 125 Troponin I 0.02 C-Reactive Protein Total Protein Albumin Triglycerides Cholesterol Total LDL Cholesterol TSH Urine Color Urine Appearance Urine pH Ur Specific Foster Urine Protein Urine Glucose (UA) Urine Ketones Urine Blood Urine Nitrite Urine Bilirubin Urine Urobilinogen Ur Leukocyte Esterase Urine WBC (Auto) Urine RBC (Auto) Urine Casts (Auto) U Epithel Cells (Auto) Urine Bacteria (Auto) Blood Type Antibody Screen 04/07/19 04/07/19 04/07/19 17:30 17:30 18:33 WBC RBC Hgb Hct MCV MCH MCHC RDW Plt Count MPV Absolute Neuts (auto) Neutrophils % Lymphocytes % Monocytes % Eosinophils % Basophils % Nucleated RBC % ESR PT with INR INR PTT (Actin FS) VBG pH POC VBG pCO2 POC VBG pO2 VBG HCO3 VBG O2 Sat (Sharmin) VBG Base Excess Sodium 139 Potassium 5.2 H Chloride 106 Carbon Dioxide 27 Anion Gap 7 L BUN 12.6 Creatinine 1.0 Est GFR (CKD-EPI)AfAm 69.92 Est GFR (CKD-EPI)NonAf 60.33 Random Glucose 88 Hemoglobin A1c % Lactic Acid 1.4 Calcium 8.9 Phosphorus Magnesium Total Bilirubin 0.4 AST 44 H ALT 27 Alkaline Phosphatase 103 Creatine Kinase Troponin I C-Reactive Protein Total Protein 7.8 Albumin 3.6 Triglycerides 398 H Cholesterol 204 H Total LDL Cholesterol 98 TSH Urine Color Urine Appearance Urine pH Ur Specific Foster Urine Protein Urine Glucose (UA) Urine Ketones Urine Blood Urine Nitrite Urine Bilirubin Urine Urobilinogen Ur Leukocyte Esterase Urine WBC (Auto) Urine RBC (Auto) Urine Casts (Auto) U Epithel Cells (Auto) Urine Bacteria (Auto) Blood Type A POSITIVE Antibody Screen Negative 04/07/19 04/07/19 04/08/19 18:33 23:30 00:00 WBC RBC Hgb Hct MCV MCH MCHC RDW Plt Count MPV Absolute Neuts (auto) Neutrophils % Lymphocytes % Monocytes % Eosinophils % Basophils % Nucleated RBC % ESR PT with INR INR PTT (Actin FS) VBG pH 7.33 POC VBG pCO2 52.9 H POC VBG pO2 < 49 H VBG HCO3 27.7 VBG O2 Sat (Sharmin) 47.0 L VBG Base Excess 1.4 Sodium Potassium Chloride Carbon Dioxide Anion Gap BUN Creatinine Est GFR (CKD-EPI)AfAm Est GFR (CKD-EPI)NonAf Random Glucose Hemoglobin A1c % Lactic Acid 1.0 Calcium Phosphorus Magnesium Total Bilirubin AST ALT Alkaline Phosphatase Creatine Kinase Troponin I C-Reactive Protein Total Protein Albumin Triglycerides Cholesterol Total LDL Cholesterol TSH Urine Color Yellow Urine Appearance Clear Urine pH 6.0 Ur Specific Foster 1.028 Urine Protein Trace Urine Glucose (UA) Negative Urine Ketones Negative Urine Blood Negative Urine Nitrite Negative Urine Bilirubin Negative Urine Urobilinogen 0.2 Ur Leukocyte Esterase 1+ H Urine WBC (Auto) 17 Urine RBC (Auto) 2 Urine Casts (Auto) 4 U Epithel Cells (Auto) 11.9 Urine Bacteria (Auto) 46.6 Blood Type Antibody Screen 04/08/19 04/08/19 04/08/19 07:00 07:00 07:00 WBC 6.6 RBC 3.95 Hgb 13.0 Hct 38.4 MCV 97.1 H MCH 32.9 MCHC 33.9 RDW 13.0 Plt Count 248 MPV 7.2 L Absolute Neuts (auto) 3.1 Neutrophils % 46.3 Lymphocytes % 36.3 D Monocytes % 9.4 Eosinophils % 6.6 H Basophils % 1.4 Nucleated RBC % 0 ESR 40 H PT with INR INR PTT (Actin FS) VBG pH POC VBG pCO2 POC VBG pO2 VBG HCO3 VBG O2 Sat (Sharmin) VBG Base Excess Sodium 142 Potassium 3.6 Chloride 108 H Carbon Dioxide 28 Anion Gap 5 L BUN 11.2 Creatinine 1.0 Est GFR (CKD-EPI)AfAm 69.92 Est GFR (CKD-EPI)NonAf 60.33 Random Glucose 82 Hemoglobin A1c % 5.2 Lactic Acid Calcium 8.6 Phosphorus 4.4 Magnesium 2.3 Total Bilirubin AST ALT Alkaline Phosphatase Creatine Kinase Troponin I C-Reactive Protein 1.4 H Total Protein Albumin Triglycerides Cholesterol Total LDL Cholesterol TSH 7.33 H Urine Color Urine Appearance Urine pH Ur Specific Foster Urine Protein Urine Glucose (UA) Urine Ketones Urine Blood Urine Nitrite Urine Bilirubin Urine Urobilinogen Ur Leukocyte Esterase Urine WBC (Auto) Urine RBC (Auto) Urine Casts (Auto) U Epithel Cells (Auto) Urine Bacteria (Auto) Blood Type Antibody Screen HOSPITAL COURSE: Ms. Edmonds is a 63y/o female with HTN, Parkinson's, bipolar disorder, peripheral vascular insufficiency, and skin cancer presents following a left side facial droop and right lower extremity redness. The droop resolved in [address] was negative for acute processes. She was started on statin. She was recently treated for cellulitis with Keflex at the beginning of this month, as well as another abx. She improved until a few days ago when it worsened. She was started on clindamycin PO. Date of Admission:04/07/19 Date of Discharge: 04/08/19 Minutes to complete discharge: 35 Discharge Summary Problems reviewed: Yes Reason For Visit: CELLULITIS,TRANSIENT ISCHEMIC ATTACK Current Active Problems Cellulitis (Acute) TIA (transient ischemic attack) (Acute) Condition: Improved - Instructions Diet, Activity, Other Instructions: You came to the emergency room after having a facial droop and slurred speech at home which resolved before coming to the hospital. We did imaging of your brain,heart, and carotid arteries all of which were normal. In addition, we are treating the cellulitis of your legs with antibiotics for which you will continue at home. we diagnosed you with TIA ( transient ischemic attack ), and cellulitis. Please resume all of your home medications in addition: Please take the antibiotic Clindamycin 300mg every 8 hours for 5 days (04/08-04/12) Please take the cholesterol medication Crestor 20mg every night. Please follow up with Dr. Garcia within one week Please follow up with the neurologsit, Dr Powell *if you begin to have changes in speech/gait, chest pains, shortness of breath, nausea/vomiting please return to the emergency room immediately Referrals: Devendra Powell MD [Staff Physician] - Hector Garcia MD [Primary Care Provider] - 1 Week Disposition: HOME - Home Medications Comprehensive Discharge Medication List: Ambulatory Orders Bumetanide 2 mg PO BID 05/28/15 Bupropion HCl [Wellbutrin Xl -] 300 mg PO DAILY 05/28/15 Carvedilol [Coreg] 3.125 mg PO BID 05/28/15 Clonazepam [Klonopin] 1 mg PO HS 05/28/15 Lamotrigine [Lamictal] 300 mg PO DAILY 05/28/15 Spironolactone 25 mg PO DAILY 05/28/15 Pramipexole Di-HCl [Pramipexole Dihydrochloride] 0.75 mg PO BID 01/23/17 Aspirin [ASA -] 1 tab PO DAILY 03/06/17 Escitalopram Oxalate [Lexapro -] 20 mg PO AM 01/14/19 Phentermine HCl 37.5 mg PO DAILY 01/14/19 Lactobacillus Acidophilus [Bacid -] 1 tab PO DAILY #14 tab 01/17/19 Oxycodone HCl [Oxycontin] 10 mg PO TID PRN 04/07/19 Quetiapine Fumarate [Seroquel -] 200 mg PO HS 04/07/19 Clindamycin [Cleocin -] 300 mg PO TID 5 Days capsule 04/08/19 Rosuvastatin [Crestor -] 20 mg PO HS #30 tablet 04/08/19 This patient is new to me today: Yes Date on this admission: 04/08/19 Emergency Visit: Yes ED Registration Date: 04/07/19 Care time: The patient presented to the Emergency Department on the above date and was hospitalized for further evaluation of their emergent condition. Critical Care patient: No - Discharge Referral Referred to [facility] No ATTENDING PHYSICIAN STATEMENT I saw and evaluated the patient. I reviewed the resident's note and discussed the case with the resident. I agree with the resident's findings and plan as documented. SUBJECTIVE: OBJECTIVE: ASSESSMENT AND PLAN:
== END 2019-04-08 17:33 | disposition home or self-care (01) | DRG 69 ==
LOC: JER 16:36 → INTOOBSV 18:27 → JERBED 18:27 → OBSVTOIN 21:19 → J4W 22:36
PROVIDERS: ADMIT Internal Medicine; ATTEND Internal Medicine
DX: G45.9 Transient cerebral ischemic attack, unspecified (principal); L03.116 Cellulitis of left lower limb; L97.819 Non-pressure chronic ulcer of other part of right lower leg with unspecified severity; G20 Parkinson's disease; F31.9 Bipolar disorder, unspecified; I10 Essential (primary) hypertension; M54.5 Low back pain; I73.9 Peripheral vascular disease, unspecified; G47.00 Insomnia, unspecified; Z98.84 Bariatric surgery status; Z85.828 Personal history of other malignant neoplasm of skin; Z96.643 Presence of artificial hip joint, bilateral
CPT/HCPCS: 36415; 70450-TC; 71045-TC-FY; 80048; 80053; 81003; 82465; 82550; 82803; 83036; 83605; 83721; 83735; 84100; 84443; 84478; 84484; 85025; 85610; 85651; 85730; 86140; 86850; 86900; 86901; 87040; 87070; 87077; 87205; 93005; 93010; 93306-TC; 93880-TC; 93970-TC; 97116-GP; 97161-GP; 99285-25; G0378; J7030

== ENCOUNTER 2020-08-30 17:51 | Emergency (ER) | payer OTHER, MEDICARE ==
[2020-08-30] MEDS ORDERED: IBUPROFEN 600 MG TABLET (FP) PO ONE ×2 (18:27→18:29)
[2020-08-30 19:12] VITALS: BP 140/84; PULSE 80; TEMP 98.7; BMI 40.4
== END 2020-08-30 19:40 | disposition home or self-care (01) ==
LOC: FER 17:51
DX: S93.402A Sprain of unspecified ligament of left ankle, initial encounter (principal)
CPT/HCPCS: 73610-TC-LT-FY; 73630-TC-LT; 99284-25

== ENCOUNTER 2021-10-25 18:50 | Emergency (ER) | payer OTHER, MEDICARE ==
[2021-10-25 19:02] VITALS: BP 127/66; PULSE 90; TEMP 98.4; BMI 40.4
[2021-10-25] MEDS ORDERED: DIPHTH,PERTUSS(ACELL),TET 0.5 ML DISP.SYRIN IM ONE ×2 (19:44→19:45)
== END 2021-10-25 21:18 | disposition home or self-care (01) ==
LOC: FER 18:50
PROC: 3E0234Z Introduction of Serum, Toxoid and Vaccine into Muscle, Percutaneous Approach (ICD-10-PCS; principal; 2021-10-25)
DX: S00.81XA Abrasion of other part of head, initial encounter (principal); S00.83XA Contusion of other part of head, initial encounter; W01.198A Fall on same level from slipping, tripping and stumbling with subsequent striking against other object, initial encounter
CPT/HCPCS: 70450-TC; 70486-TC; 90471; 90715; 99284-25

== ENCOUNTER 2021-12-29 20:00 | Inpatient (IN) | payer OTHER, MEDICARE ==
[2021-12-29] MEDS ORDERED: VANCOMYCIN 1 GM in D5W (PRE-DOCKED) 1,000 MG/250 ML IVPB ONE (20:25)
[2021-12-29] MEDS ORDERED: VANCOMYCIN 1,000 MG VIAL (RESTRICTED TO ID ONLY) ONE (20:39)
[2021-12-29 21:30] LABS: HEMATOCRIT 41.1 % (32.4-45.2); HEMOGLOBIN 14.1 G/dL (10.7-15.3); MCHC 34.4 g/dl (32.0-36.0); MEAN CELL VOLUME 93.1 fl (80-96); MEAN PLT VOLUME 7.2 fl (7.5-11.1); PLATELET COUNT 221.9 10^3/uL (134-434); RBC 4.41 10^6/uL (3.60-5.2); RDW 14.5 % (11.6-15.6); WHITE BLOOD COUNT 8.9 10^3/uL (4.0-10.8)
[2021-12-29 21:47] LABS: ALBUMIN 3.8 g/dl (3.4-5.0); BILIRUBIN,TOTAL 0.7 mg/dl (0.2-1); CALCIUM 8.6 mg/dl (8.5-10); CREATININE 1.1 mg/dl (0.55-1.3); TOT PROT 6.8 g/dl (6.4-8.2)
[2021-12-29] MEDS ORDERED: DOCUSATE SODIUM 100 MG CAPSULE (FP) PO PRN (22:23)
[2021-12-29] MEDS ORDERED: PIPERACILLIN/TAZOBACTAM 3.375 GM VIAL IVPB ONE (22:50)
[2021-12-29] MEDS: PIPERACILLIN/TAZOB 3.375 GM 3.375 GM in DEXTROSE 5%-WATER - 50 ML IVPB SCH (23:20)
[2021-12-29] MEDS ORDERED: QUEtiapine FUMARATE 25 MG TABLET ONE (23:44)
[2021-12-29] MEDS ORDERED: clonazePAM 0.5 MG TABLET ONE (23:45)
[2021-12-29] MEDS: BUMETANIDE 1 MG TABLET PO SCH (23:47)
[2021-12-29] MEDS: clonazePAM 0.5 MG TABLET PO SCH (23:48)
[2021-12-29] MEDS: QUEtiapine FUMARATE 50 MG TABLET PO SCH (23:48)
[2021-12-30 01:19] VITALS: BMI 40.8
[2021-12-30] MEDS: CARVEDILOL 3.125 MG TABLET (FP) PO SCH ×3 (01:20→21:27)
[2021-12-30] MEDS: PRAMIPEXOLE DIHYDROCHLORIDE 0.25 MG TABLET PO SCH ×3 (01:31→21:28)
[2021-12-30] MEDS: ROSUVASTATIN CA 20 MG TABLET PO SCH ×2 (01:31→21:27)
[2021-12-30] MEDS: PIPERACILLIN/TAZOB 3.375 GM 3.375 GM in DEXTROSE 5%-WATER - 50 ML IVPB SCH ×4 (02:30→21:26)
[2021-12-30] MEDS ORDERED: VANCOMYCIN/WATER 1,250 MG/250 ML BAG IVPB ONE (08:00)
[2021-12-30 08:26] LABS: CALCIUM 8.2 mg/dl (8.5-10)
[2021-12-30 08:44] LABS: PROTHROMBIN TIME (PATIENT) 11.5 SEC (9.7-13.0)
[2021-12-30 08:47] LABS: ACTIVATED PTT 29.2 SECONDS (25.2-36.5)
[2021-12-30 08:51] LABS: EPITHELIAL CELLS FEW /hpf
[2021-12-30] MEDS: ENOXAPARIN NA (PORCINE) 40 MG/0.4 ML DISP.SYRIN SQ SCH (09:15)
[2021-12-30] MEDS: ESCITALOPRAM OXALATE 20 MG TABLET PO SCH (09:16)
[2021-12-30] MEDS: SPIRONOLACTONE 25 MG TABLET PO SCH (09:16)
[2021-12-30] MEDS: lamoTRIgine 100 MG TABLET PO SCH (09:16)
[2021-12-30] MEDS: ESCITALOPRAM OXALATE 10 MG TABLET PO SCH (09:16)
[2021-12-30] MEDS ORDERED: HALOBETASOL TP SCH (10:00)
[2021-12-30] MEDS ORDERED: TAZAROTENE TP SCH (10:00)
[2021-12-30] MEDS: BUMETANIDE 1 MG TABLET PO SCH ×2 (10:21→21:22)
[2021-12-30 10:31] LABS: BASO % 0.7 % (0-2.0); EOS % 6.9 % (0-4.5); HEMATOCRIT 49.4 % (32.4-45.2); HEMOGLOBIN 16.5 GM/dL (10.7-15.3); LYMPH % 33.6 % (8-40); MCH 31.1 pg (25.7-33.7); MCHC 33.4 g/dl (32.0-36.0); MONO % 6.3 % (3.8-10.2); NEUT % 52.5 % (42.8-82.8); PLATELET COUNT 123 10^3/uL (134-434); RBC 5.31 M/mm3 (3.60-5.2); WHITE BLOOD COUNT 4.2 K/mm3 (4.0-10.0)
[2021-12-30] MEDS: MUPIROCIN CA 2% TOPICAL CREAM 15 GM TUBE TP SCH ×2 (12:06→21:26)
[2021-12-30] MEDS ORDERED: QUEtiapine FUMARATE 25 MG TABLET ONE (21:06)
[2021-12-30] MEDS: clonazePAM 0.5 MG TABLET PO SCH (21:28)
[2021-12-30] MEDS: QUEtiapine FUMARATE 50 MG TABLET PO SCH (21:29)
[2021-12-31] MEDS: VANCOMYCIN/WATER 1250 MG 1,250 MG/250 ML BAG IVPB SCH ×2 (00:14→11:51)
[2021-12-31] MEDS: PIPERACILLIN/TAZOB 3.375 GM 3.375 GM in DEXTROSE 5%-WATER - 50 ML IVPB SCH ×6 (03:00→17:00)
[2021-12-31] MEDS ORDERED: VANCOMYCIN/WATER 1,250 MG/250 ML BAG IVPB SCH (08:00)
[2021-12-31 08:19] LABS: ALBUMIN 3.1 g/dl (3.4-5.0); BILIRUBIN,TOTAL 0.7 mg/dl (0.2-1); CALCIUM 8.1 mg/dl (8.5-10); CREATININE 1.1 mg/dl (0.55-1.3); TOT PROT 5.7 g/dl (6.4-8.2)
[2021-12-31] MEDS: BUMETANIDE 1 MG TABLET PO SCH ×2 (09:05→17:00)
[2021-12-31] MEDS: CARVEDILOL 3.125 MG TABLET (FP) PO SCH ×2 (10:12→21:31)
[2021-12-31] MEDS: PRAMIPEXOLE DIHYDROCHLORIDE 0.25 MG TABLET PO SCH ×2 (10:12→21:32)
[2021-12-31] MEDS: ESCITALOPRAM OXALATE 10 MG TABLET PO SCH (10:13)
[2021-12-31] MEDS: SPIRONOLACTONE 25 MG TABLET PO SCH (10:13)
[2021-12-31] MEDS: ESCITALOPRAM OXALATE 20 MG TABLET PO SCH (10:13)
[2021-12-31] MEDS: lamoTRIgine 100 MG TABLET PO SCH (10:13)
[2021-12-31] MEDS: ENOXAPARIN NA (PORCINE) 40 MG/0.4 ML DISP.SYRIN SQ SCH (10:14)
[2021-12-31] MEDS: MUPIROCIN CA 2% TOPICAL CREAM 15 GM TUBE TP SCH ×2 (10:16→21:30)
[2021-12-31 11:11] LABS: HEMATOCRIT 34.5 % (32.4-45.2); HEMOGLOBIN 11.6 GM/dL (10.7-15.3); MCH 31.8 pg (25.7-33.7); MCHC 33.6 g/dl (32.0-36.0); MEAN CELL VOLUME 94.6 fl (80-96); MEAN PLT VOLUME 7.4 fl (7.5-11.1); PLATELET COUNT 201 10^3/uL (134-434); RBC 3.65 M/mm3 (3.60-5.2); RDW 14.9 % (11.6-15.6)
[2021-12-31] MEDS: VANCOMYCIN/WATER 1,250 MG/250 ML BAG IVPB SCH (12:30)
[2021-12-31] MEDS: ROSUVASTATIN CA 20 MG TABLET PO SCH (21:31)
[2021-12-31] MEDS: clonazePAM 0.5 MG TABLET PO SCH (21:32)
[2021-12-31] MEDS: QUEtiapine FUMARATE 25 MG TABLET PO SCH (21:32)
[2021-12-31] MEDS: VANCOMYCIN 1 GRAM (PRE-DOCKED) 1,000 MG/250 ML BAG IVPB SCH (22:15)
[2022-01-01] MEDS: PIPERACILLIN/TAZOB 3.375 GM 3.375 GM in DEXTROSE 5%-WATER - 50 ML IVPB SCH ×3 (01:24→17:03)
[2022-01-01] MEDS: BUMETANIDE 1 MG TABLET PO SCH ×2 (08:01→16:59)
[2022-01-01] MEDS: ENOXAPARIN NA (PORCINE) 40 MG/0.4 ML DISP.SYRIN SQ SCH (09:31)
[2022-01-01] MEDS: ESCITALOPRAM OXALATE 10 MG TABLET PO SCH (09:32)
[2022-01-01] MEDS: ESCITALOPRAM OXALATE 20 MG TABLET PO SCH (09:32)
[2022-01-01] MEDS: SPIRONOLACTONE 25 MG TABLET PO SCH (09:32)
[2022-01-01] MEDS: CARVEDILOL 3.125 MG TABLET (FP) PO SCH ×2 (09:33→21:46)
[2022-01-01] MEDS: PRAMIPEXOLE DIHYDROCHLORIDE 0.25 MG TABLET PO SCH ×2 (09:34→21:47)
[2022-01-01] MEDS: lamoTRIgine 100 MG TABLET PO SCH (09:34)
[2022-01-01] MEDS: MUPIROCIN CA 2% TOPICAL CREAM 15 GM TUBE TP SCH ×2 (09:36→21:46)
[2022-01-01] MEDS: VANCOMYCIN 1 GRAM (PRE-DOCKED) 1,000 MG/250 ML BAG IVPB SCH ×2 (10:24→22:03)
[2022-01-01] MEDS: XTAMPZA 9 MG PO PRN ×2 (13:22→21:59)
[2022-01-01] MEDS: [UNRECOGNIZED DRUG - OTHER] PO PRN ×2 (13:22→21:59)
[2022-01-01] MEDS: ROSUVASTATIN CA 20 MG TABLET PO SCH (21:46)
[2022-01-01] MEDS: clonazePAM 0.5 MG TABLET PO SCH (21:47)
[2022-01-01] MEDS: QUEtiapine FUMARATE 25 MG TABLET PO SCH (21:48)
[2022-01-02] MEDS: PIPERACILLIN/TAZOB 3.375 GM 3.375 GM in DEXTROSE 5%-WATER - 50 ML IVPB SCH ×3 (01:28→17:30)
[2022-01-02] MEDS: XTAMPZA 9 MG PO PRN ×2 (06:16→16:03)
[2022-01-02] MEDS: [UNRECOGNIZED DRUG - OTHER] PO PRN ×2 (06:16→16:03)
[2022-01-02] MEDS: BUMETANIDE 1 MG TABLET PO SCH ×2 (08:06→15:47)
[2022-01-02] MEDS: AMMONIUM LACTATE 12% LOTION 225 GM BOTTLE TP PRN ×2 (10:00→22:29)
[2022-01-02] MEDS: PRAMIPEXOLE DIHYDROCHLORIDE 0.25 MG TABLET PO SCH ×2 (10:01→22:24)
[2022-01-02] MEDS: lamoTRIgine 100 MG TABLET PO SCH (10:01)
[2022-01-02] MEDS: SPIRONOLACTONE 25 MG TABLET PO SCH (10:02)
[2022-01-02] MEDS: ESCITALOPRAM OXALATE 10 MG TABLET PO SCH (10:02)
[2022-01-02] MEDS: ESCITALOPRAM OXALATE 20 MG TABLET PO SCH (10:02)
[2022-01-02] MEDS: MUPIROCIN CA 2% TOPICAL CREAM 15 GM TUBE TP SCH ×2 (10:03→22:28)
[2022-01-02] MEDS: CARVEDILOL 3.125 MG TABLET (FP) PO SCH ×2 (10:03→22:25)
[2022-01-02] MEDS: ENOXAPARIN NA (PORCINE) 40 MG/0.4 ML DISP.SYRIN SQ SCH (10:03)
[2022-01-02] MEDS: VANCOMYCIN 1 GRAM (PRE-DOCKED) 1,000 MG/250 ML BAG IVPB SCH ×2 (11:05→22:25)
[2022-01-02] MEDS: clonazePAM 0.5 MG TABLET PO SCH (22:24)
[2022-01-02] MEDS: QUEtiapine FUMARATE 25 MG TABLET PO SCH (22:25)
[2022-01-02] MEDS: ROSUVASTATIN CA 20 MG TABLET PO SCH (22:25)
[2022-01-03] MEDS: PIPERACILLIN/TAZOB 3.375 GM 3.375 GM in DEXTROSE 5%-WATER - 50 ML IVPB SCH ×2 (01:24→09:35)
[2022-01-03] MEDS: [UNRECOGNIZED DRUG - OTHER] PO PRN (05:56)
[2022-01-03] MEDS: XTAMPZA 9 MG PO PRN (05:56)
[2022-01-03] MEDS: BUMETANIDE 1 MG TABLET PO SCH (08:19)
[2022-01-03] MEDS: AMMONIUM LACTATE 12% LOTION 225 GM BOTTLE TP PRN (09:31)
[2022-01-03] MEDS: MUPIROCIN CA 2% TOPICAL CREAM 15 GM TUBE TP SCH (09:32)
[2022-01-03] MEDS: ENOXAPARIN NA (PORCINE) 40 MG/0.4 ML DISP.SYRIN SQ SCH (09:32)
[2022-01-03] MEDS: ESCITALOPRAM OXALATE 20 MG TABLET PO SCH (09:33)
[2022-01-03] MEDS: ESCITALOPRAM OXALATE 10 MG TABLET PO SCH (09:33)
[2022-01-03] MEDS: PRAMIPEXOLE DIHYDROCHLORIDE 0.25 MG TABLET PO SCH (09:34)
[2022-01-03] MEDS: CARVEDILOL 3.125 MG TABLET (FP) PO SCH (09:34)
[2022-01-03] MEDS: SPIRONOLACTONE 25 MG TABLET PO SCH (09:34)
[2022-01-03] MEDS: lamoTRIgine 100 MG TABLET PO SCH (09:35)
[2022-01-03] MEDS ORDERED: CEFTRIAXONE 1 GM in DEXTROSE 5%-WATER - 50 ML IVPB SCH ×2 (10:00→13:30)
[2022-01-03 15:36] VITALS: BP 114/61; PULSE 80; RESP 19; TEMP 98.7
== END 2022-01-03 15:37 | disposition home or self-care (01) | DRG 920 ==
LOC: FER 20:00 → FM/S 23:27 → UNDOADMIN 12-30 00:23 → FM/S 12-30 00:23
PROVIDERS: ADMIT Hospitalist
DX: T81.30XA Disruption of wound, unspecified, initial encounter (principal); L03.115 Cellulitis of right lower limb; Z68.41 Body mass index [BMI] 40.0-44.9, adult; I89.0 Lymphedema, not elsewhere classified; G20 Parkinson's disease; I10 Essential (primary) hypertension; E78.5 Hyperlipidemia, unspecified; S81.811A Laceration without foreign body, right lower leg, initial encounter; F31.9 Bipolar disorder, unspecified; E66.9 Obesity, unspecified; Y83.9 Surgical procedure, unspecified as the cause of abnormal reaction of the patient, or of later complication, without mention of misadventure at the time of the procedure; X58.XXXA Exposure to other specified factors, initial encounter; Y93.9 Activity, unspecified; Y92.89 Other specified places as the place of occurrence of the external cause; Y99.9 Unspecified external cause status
CPT/HCPCS: 0241U-QW; 36415; 71045-TC-FY; 80048; 80053; 81003; 81015; 85025; 85027; 85610; 85730; 87040; 87070; 87186; 87205; 93005; 99285-25